=== PATIENT | female | born 1930 | race Caucasian/White ===

== ENCOUNTER 2016-10-06 20:07 | Observation (INO) | payer BC ==
[~2016-10-06] VITALS: Ht 162.6 cm; Wt 63.5 kg
[~2016-10-06 20:07] MED LIST: BISA-3 PO; CRDCD240 PO; SERT50TA PO
--- NOTE | 2016-10-06 20:42 | DIAGNOSTIC IMAGING REPORT ---
CHEST ONE VIEW PORTABLE CLINICAL HISTORY: Chest Pain dyspnea COMPARISON STUDY: 01/23/2016 FINDINGS: Mild stable cardiomegaly. Unchanging right infrahilar nodular density. Slight prominence pulmonary vasculature. Diaphragms smooth. Potential small parenchymal infiltrate left base. IMPRESSION: Small parenchymal infiltrate left base. Unchanging right basilar nodularity. Electronically signed by: Vidal Anand M.D. 10/06/2016 8:40 PM Dictated Date/Time: 10/06/2016 8:40 PM
[2016-10-06 21:12] LABS: BLOOD UREA NITROGEN 11 mg/dl (7-18); BUN/CREATININE RATIO 17.8 (10-20); CARBON DIOXIDE 27 mmol/L (21-32); CHLORIDE 98 mmol/L (98-107); CREATININE 0.63 mg/dl (0.60-1.20); GLUCOSE 91 mg/dl (70-99); SODIUM 133 mmol/L (136-145)
[2016-10-06 21:16] LABS: CKMB/CK RATIO 2.4 (0-3.0)
[2016-10-06 21:27] LABS: MEAN CORPUSCULAR HGB CONC 32.4 g/dl (32-36)
[2016-10-06 21:52] LABS: HEMATOCRIT 28.4 % (37-47); MEAN CELL VOLUME 65.6 fL (80-100); MEAN CORPUSCULAR HEMOGLOBIN 21.2 pg (25-34); PLATELET COUNT 234 K/uL (130-400); RED BLOOD COUNT 4.33 M/uL (4.2-5.4); WHITE BLOOD COUNT 6.35 K/uL (4.8-10.8)
[2016-10-06 21:53] LABS: BASO % 0.9 %; BASO ABS # 0.06 K/uL (0-0.2); COMPLETE YES; EOS % 2.2 %; IG% 0.3 %; LYMPH % 31.2 %; LYMPH ABS # 1.98 K/uL (1.2-3.4); NEUT % 57.4 %; OVALOCYTES 1+; TARGET CELLS 1+
[2016-10-06 21:55] LABS: CALCIUM 9.2 mg/dl (8.5-10.1)
[2016-10-07] MEDS ORDERED: NITROGLYCERIN 0.4 MG SL PER TAB CHARGE SL PRN (00:15)
[2016-10-07] MEDS ORDERED: ACETAMINOPHEN 325 MG TAB PO PRN (00:15)
[2016-10-07] MEDS ORDERED: IV FLUIDS COMPLETED PRN (00:45)
--- NOTE | 2016-10-07 00:50 | EMERGENCY ROOM VISIT NOTE ---
History Report prepared by Moo: Milagro Goff Under the Supervision of: Dr. Yonathan Calvillo D.O. First contact with patient: 20:17 Chief Complaint: CHEST PAIN Stated Complaint: CHEST PAIN History of Present Illness The patient is a 85 year old female who presents to the Emergency Room with complaints of resolved chest pain starting 1.5 hours PIN STICKER that she described as a pressure. She states that the pain lasted about 15 minutes. She states it radiated to her lower chest and back but denies any shortness of breath, jaw pain or arm pain. The patient states she currently has no chest pain. Had similar pain in past but she did not get evaluated. The patient denies any history of heart attacks or diabetes. She states that she has not been able to have bowel movements the last two days but denies any abdominal pain. She also denies any fevers, coughs, nausea, vomiting or diarrhea. Source of History: patient Onset: 1.5 hours PIN STICKER Quality: pressure Timing: resolved Associated Symptoms: No SOB, No cough, No diarrhea, No fevers, No nausea, No vomiting Review of Systems See HPI for pertinent positives & negatives. A total of 10 systems reviewed and were otherwise negative. Past Medical & Surgical Medical Problems: (1) Atrial fibrillation (2) Atrial fibrillation with RVR (3) CAD (coronary artery disease) (4) Chest pain, rule out acute myocardial infarction (5) Hypertension Family History Patient reports no known family medical history. Social History Smoking Status: Former Smoker Alcohol Use: occasionally Drug Use: none Marital Status: Housing Status: lives with family Occupation Status: retired Current/Historical Medications Scheduled Diltiazem HCl (Diltiazem Cd), 240 MG PO QAM Sertraline (Zoloft), 50 MG PO DAILY Allergies Coded Allergies: Aspirin (Unverified Allergy, Unknown, UNK, 10/06/16) Erythromycin (Unverified Allergy, Unknown, UNK, 10/06/16) Loratadine (Unverified Allergy, Unknown, UNK, 10/06/16) Naproxen (Unverified Allergy, Unknown, UNK, 10/06/16) Penicillins (Unverified Allergy, Unknown, UNK, 10/06/16) Sulfa Antibiotics (Unverified Allergy, Unknown, UNK, 10/06/16) Physical Exam Vital Signs Date Time Temp Pulse Resp B/P Pulse Ox O2 Delivery O2 Flow Rate FiO2 10/07/16 00:30 65 10/07/16 00:25 67 18 151/84 96 Room Air 10/06/16 22:29 68 20 148/66 93 Room Air 10/06/16 20:56 61 10/06/16 20:30 95 Room Air 10/06/16 20:30 95 Room Air 10/06/16 20:30 36.7 65 20 161/79 95 Room Air Physical Exam GENERAL: sitting up in bed, no acute distress, non toxic. EYE EXAM: normal conjunctiva OROPHARYNX: no exudate, no erythema, lips, buccal mucosa, and tongue normal and mucous membranes are moist NECK: supple, no nuchal rigidity, no adenopathy, non-tender LUNGS: Clear to auscultation. Normal chest wall mechanics HEART: no murmurs, S1 normal and S2 normal ABDOMEN: abdomen soft, non-tender, normo-active bowel sounds, no masses, no rebound or guarding. UPPER EXTREMITIES: upper extremities are grossly normal. radial pulse equal bilaterally. LOWER EXTREMITIES: No pitting edema. NEURO EXAM: Normal sensorium, cranial nerves II-XII grossly intact, normal speech, no gross weakness of arms, no gross weakness of legs. No drift. Gross sensation intact. Medical Decision & Procedures ER Provider Diagnostic Interpretation: Radiology results as stated below per my review and the radiologist's interpretation: CHEST ONE VIEW PORTABLE CLINICAL HISTORY: Chest Pain dyspnea COMPARISON STUDY: 01/23/2016 FINDINGS: Mild stable cardiomegaly. Unchanging right infrahilar nodular density. Slight prominence pulmonary vasculature. Diaphragms smooth. Potential small parenchymal infiltrate left base. IMPRESSION: Small parenchymal infiltrate left base. Unchanging right basilar nodularity. Electronically signed by: Vidal Anand M.D. 10/06/2016 8:40 PM Dictated Date/Time: 10/06/2016 8:40 PM Laboratory Results 10/06/16 21:15 Red Blood Count 4.33, Mean Corpuscular Volume 65.6, Mean Corpuscular Hemoglobin 21.2, Mean Corpuscular Hemoglobin Concent 32.4, Neutrophils (%) (Auto) 57.4, Lymphocytes (%) (Auto) 31.2, Monocytes (%) (Auto) 8.0, Eosinophils (%) (Auto) 2.2, Basophils (%) (Auto) 0.9, Neutrophils # (Auto) 3.64, Lymphocytes # (Auto) 1.98, Monocytes # (Auto) 0.51, Eosinophils # (Auto) 0.14, Basophils # (Auto) 0.06 10/06/16 20:30 Test 10/06/16 20:30 10/06/16 21:15 Anion Gap 8.0 mmol/L (3-11) Est Creatinine Clear Calc Drug Dose 56.4 ml/min Estimated GFR () 94.8 Estimated GFR (Non- 81.8 BUN/Creatinine Ratio 17.8 (10-20) Calcium Level 9.2 mg/dl (8.5-10.1) Total Creatine Kinase 74 U/L (26-192) Creatine Kinase MB 1.8 ng/ml (0.5-3.6) Creatine Kinase MB Ratio 2.4 (0-3.0) Troponin I < 0.015 ng/ml (0-0.045) White Blood Count 6.35 K/uL (4.8-10.8) Red Blood Count 4.33 M/uL (4.2-5.4) Hemoglobin 9.2 g/dL (12.0-16.0) Hematocrit 28.4 % (37-47) Mean Corpuscular Volume 65.6 fL (80-100) Mean Corpuscular Hemoglobin 21.2 pg (25-34) Mean Corpuscular Hemoglobin Concent 32.4 g/dl (32-36) Platelet Count 234 K/uL (130-400) Neutrophils (%) (Auto) 57.4 % Lymphocytes (%) (Auto) 31.2 % Monocytes (%) (Auto) 8.0 % Eosinophils (%) (Auto) 2.2 % Basophils (%) (Auto) 0.9 % Neutrophils # (Auto) 3.64 K/uL (1.4-6.5) Lymphocytes # (Auto) 1.98 K/uL (1.2-3.4) Monocytes # (Auto) 0.51 K/uL (0.11-0.59) Eosinophils # (Auto) 0.14 K/uL (0-0.5) Basophils # (Auto) 0.06 K/uL (0-0.2) RDW Standard Deviation 38.8 fL (36.4-46.3) RDW Coefficient of Variation 16.6 % (11.5-14.5) Immature Granulocyte % (Auto) 0.3 % Immature Granulocyte # (Auto) 0.02 K/uL (0.00-0.02) Basophilic Stippling 1+ Target Cells 1+ Ovalocytes 1+ Laboratory results per my review. ECG Indication: chest pain Rate (beats per minute): 61 Rhythm: sinus rhythm Findings: LBBB, left axis deviation, other (sliding discord septal lead not greater than 5 mm) Comparison ECG Date: December Change: no significant change ED Course ED COURSE: Vital signs were reviewed and showed normal The patients medical record was reviewed The above diagnostic studies were performed and reviewed. ED treatments and interventions as stated above. 2027: The patient was evaluated in room C6. A complete history and physical examination was performed. 5: I reevaluated the patient and she was resting comfortably. 2230: I discussed the case with Dr. Ellis Resident/ Dr. Bee[place] [facility] [place]. He agreed to evaluate the patient for further management and care. 2245: Upon reevaluation, the patient is resting comfortably.I discussed my findings with the patient and she understands and agrees with the treatment plan. Based on the patients age, coexisting illnesses, exam and lab findings the decision to treat as an inpatient was made.The patient remained stable while under my care.The patient will be evaluated for further management. Medical Decision Differential diagnoses includes but is not limited to acute coronary syndrome, myocardial infarction, pericarditis, pulmonary embolus, aortic dissection, pneumonia, pneumothorax, musculoskeletal, shingles, esophageal. Patient is an 85-year-old female who presents the ER for midsternal chest tightness/pressure which occurred while ambulating in her yard. It lasted for about 15 minutes and resolved with rest. It was not associated with shortness of breath. She has had this once before in the past but never had it evaluated. EMS arrived and patient was given aspirin upon arrival to the ER was completely pain-free. CBC shows a mild anemia at 9.2. This is slightly off of her baseline at 10. BMP along with LFTs and troponin were negative. Chest x-ray was unremarkable. EKG shows a left bundle with slight increased in elevation in the septal leads from previous. This does not meet scrbosas criteria with the left bundle-branch block and she was completely chest pain- free upon arrival. She does have a history of CAD and hypertension. Prolonged discussion with the patient and she was agreeable to observation overnight. Consults Time Called: 2219 Consulting Physician: Dr. Ellis Resident/ Dr. Angelica GARCIA Returned Call: [phone] I discussed the case with Dr. Ellis Resident/ Dr. Concepción GARCIA Hospitalist. He agreed to evaluate the patient for further management and care. Impression Primary Impression: Precordial chest pain Additional Impression: Anemia Scribe Attestation The scribe's documentation has been prepared under my direction and personally reviewed by me in its entirety. I confirm that the note above accurately reflects all work, treatment, procedures, and medical decision making performed by me. Departure Information Dispostion Being Evaluated By Hospitalist Patient Instructions My [facility] Problem Qualifiers Additional Impression: Anemia Anemia type: unspecified type Qualified Codes: D64.9 - Anemia, unspecified
[2016-10-07 02:00] VITALS: BP 107/71; PULSE 69; TEMP 36.6; O2SAT 93; Ht 162.6 cm; Wt 63.5 kg
[2016-10-07 03:20] VITALS: BP 133/89; PULSE 61; TEMP 36.7; O2SAT 93
--- NOTE | 2016-10-07 07:46 | Family Medicine Progress Note ---
Progress Note Date of Service October 07, 2016. Objective Vital Signs Date Time Temp Pulse Resp B/P Pulse Ox O2 Delivery O2 Flow Rate FiO2 10/07/16 04:00 Room Air 10/07/16 03:20 36.7 61 18 133/89 93 Room Air 10/07/16 02:00 36.6 69 18 107/71 93 Room Air 10/07/16 01:35 60 15 121/61 94 10/07/16 00:30 65 10/07/16 00:25 67 18 151/84 96 Room Air 10/06/16 22:29 68 20 148/66 93 Room Air 10/06/16 20:56 61 10/06/16 20:30 95 Room Air 10/06/16 20:30 95 Room Air 10/06/16 20:30 36.7 65 20 161/79 95 Room Air Resident Tracking Resident Involvement: Resident Care Provided Care Provided: Adult Hospital Medicine
[2016-10-07 07:47] VITALS: BP 153/77; PULSE 63; TEMP 36.5; O2SAT 92
--- NOTE | 2016-10-07 08:04 | History and Physical ---
History & Physical Date & Time of Service: October 07, 2016 at 07:47 Chief Complaint: Cad,Chest Pain,R/O Acute Myocardial Infarction Primary Care Physician: No Doctor, Assigned History of Present Illness Source: patient Mrs Quezada is an 85 year old female who presents to the ER after 15-20 minutes of severity 9-10/10 chest pain on exertion. She feels this may have been due to her son smoking in the house. She went out to the yard and while walking around she had the chest pain which slowly went away when she was sitting down. She denies any associated nausea or diaphoresis. It was not positional. She has never had this pain previously. She denies any orthopnea, PND, claudication or leg swelling. She reports having palpitations once when she was squeezed into the back of the car which went away when she got out. She has a history of atrial flutter/fibrillation from previous hospital notes but cannot tell me anything about this. Past Medical/Surgical History Paroxysmal SVT Left bundle branch block B12 deficiency, on monthly injections. Family History Patient reports no known family medical history. Social History Smoking Status: Former Smoker (3 month history) Drug Use: none Marital Status: Housing status: lives with family Occupational Status: retired Allergies Coded Allergies: Aspirin (Unverified Allergy, Unknown, UNK, 10/06/16) Erythromycin (Unverified Allergy, Unknown, UNK, 10/06/16) Loratadine (Unverified Allergy, Unknown, UNK, 10/06/16) Naproxen (Unverified Allergy, Unknown, UNK, 10/06/16) Penicillins (Unverified Allergy, Unknown, UNK, 10/06/16) Sulfa Antibiotics (Unverified Allergy, Unknown, UNK, 10/06/16) Home Medications Scheduled Diltiazem HCl (Diltiazem Cd), 240 MG PO QAM Sertraline (Zoloft), 50 MG PO DAILY Scheduled PRN Nitroglycerin (Nitrostat), 0.4 MG SL UD PRN for Chest Pain Physical Exam Vital Signs Date Time Temp Pulse Resp B/P Pulse Ox O2 Delivery O2 Flow Rate FiO2 10/07/16 04:00 Room Air 10/07/16 03:20 36.7 61 18 133/89 93 Room Air 10/07/16 02:00 36.6 69 18 107/71 93 Room Air 10/07/16 01:35 60 15 121/61 94 10/07/16 00:30 65 10/07/16 00:25 67 18 151/84 96 Room Air 10/06/16 22:29 68 20 148/66 93 Room Air 10/06/16 20:56 61 10/06/16 20:30 95 Room Air 10/06/16 20:30 95 Room Air 10/06/16 20:30 36.7 65 20 161/79 95 Room Air General Appearance: WD/WN, no apparent distress Head: normocephalic, atraumatic Eyes: normal inspection, EOMI Neck: supple, no JVD Respiratory/Chest: chest non-tender, lungs clear, normal breath sounds, no respiratory distress, no accessory muscle use Cardiovascular: regular rate, rhythm, normal peripheral pulses, + systolic murmur (soft loudest in LUSB) Abdomen/GI: normal bowel sounds, non tender, soft Back: no CVA tenderness Extremities/Musculoskelatal: no calf tenderness, normal capillary refill, no pedal edema Neurologic/Psych: mobile lab technician II-XII nml as tested, no motor/sensory deficits, alert, normal mood/affect, oriented x 3 Skin: normal color, warm/dry, no rash Diagnostics Laboratory Results Results Past 24 Hours Test 10/06/16 20:30 10/06/16 21:15 10/07/16 02:41 Range/Units Sodium Level 133 136-145 mmol/L Potassium Level 4.0 3.5-5.1 mmol/L Chloride Level 98 98-107 mmol/L Carbon Dioxide Level 27 21-32 mmol/L Anion Gap 8.0 3-11 mmol/L Blood Urea Nitrogen 11 7-18 mg/dl Creatinine 0.63 0.60-1.20 mg/dl Est Creatinine Clear Calc Drug Dose 56.4 ml/min Estimated GFR () 94.8 Estimated GFR (Non- 81.8 BUN/Creatinine Ratio 17.8 10-20 Random Glucose 91 70-99 mg/dl Calcium Level 9.2 8.5-10.1 mg/dl Total Creatine Kinase 74 26-192 U/L Creatine Kinase MB 1.8 0.5-3.6 ng/ml Creatine Kinase MB Ratio 2.4 0-3.0 Troponin I < 0.015 < 0.015 0-0.045 ng/ml White Blood Count 6.35 4.8-10.8 K/uL Red Blood Count 4.33 4.2-5.4 M/uL Hemoglobin 9.2 12.0-16.0 g/dL Hematocrit 28.4 37-47 % Mean Corpuscular Volume 65.6 80-100 fL Mean Corpuscular Hemoglobin 21.2 25-34 pg Mean Corpuscular Hemoglobin Concent 32.4 32-36 g/dl Platelet Count 234 130-400 K/uL Neutrophils (%) (Auto) 57.4 % Lymphocytes (%) (Auto) 31.2 % Monocytes (%) (Auto) 8.0 % Eosinophils (%) (Auto) 2.2 % Basophils (%) (Auto) 0.9 % Neutrophils # (Auto) 3.64 1.4-6.5 K/uL Lymphocytes # (Auto) 1.98 1.2-3.4 K/uL Monocytes # (Auto) 0.51 0.11-0.59 K/uL Eosinophils # (Auto) 0.14 0-0.5 K/uL Basophils # (Auto) 0.06 0-0.2 K/uL RDW Standard Deviation 38.8 36.4-46.3 fL RDW Coefficient of Variation 16.6 11.5-14.5 % Immature Granulocyte % (Auto) 0.3 % Immature Granulocyte # (Auto) 0.02 0.00-0.02 K/uL Basophilic Stippling 1+ Target Cells 1+ Ovalocytes 1+ Diagnostic Radiology CHEST ONE VIEW PORTABLE CLINICAL HISTORY: Chest Pain dyspnea COMPARISON STUDY: 01/23/2016 FINDINGS: Mild stable cardiomegaly. Unchanging right infrahilar nodular density. Slight prominence pulmonary vasculature. Diaphragms smooth. Potential small parenchymal infiltrate left base. IMPRESSION: Small parenchymal infiltrate left base. Unchanging right basilar nodularity. Electronically signed by: Vidal Anand M.D. 10/06/2016 8:40 PM Dictated Date/Time: 10/06/2016 8:40 PM EKG LBBB which is not new and does not meet sgarbossa's criteria for acute [place] Impression Assessment and Plan 85 year old female with Hx of atrial flutter presents with chest pain Chest pain rule out [place] - had aspirin given by EMS, noted allergy although she is unsure about this and no reaction is noted - serial troponin overnight - stress echo in the morning is troponin is negative - fasting lipids in morning - HbA1C Code - Full VTE Prophylaxis - deferred as patient mobile. If troponin positive will treat with heparin drip Disposition - observation status on telemetry Level of Care Telemetry Advanced Directives Existing Living Will: No (Patient unsure) Existing Power of Rolling Attendant: No (Patient unsure) Resuscitation Status FULL RESUSCITATION VTE Prophylaxis VTE Risk Assessment Done? Y/N: Yes Risk Level: Moderate Given or contraindicated: Treatment not indicated (if troponin positive or exercise stress positive will place on heparin drip, otherwise she is mobile and can be d/c tomorrow) Resident Tracking Resident Involvement: Resident Care Provided Care Provided: Adult Hospital Medicine Assessment and Plan Attending Addendum: I have physically seen and examined this patient, have directed their medical care, have supervised the medical residents activities, and agree with the H&P as noted above, with the following changes: NONE
[2016-10-07 08:33] LABS: ESTIMATED AVERAGE GLUCOSE 100 mg/dl; HA1C FLAG Normal (Normal)
[2016-10-07 08:40] LABS: BLOOD UREA NITROGEN 9 mg/dl (7-18); CARBON DIOXIDE 28 mmol/L (21-32); CHLORIDE 100 mmol/L (98-107); CREATININE 0.62 mg/dl (0.60-1.20); GLUCOSE 93 mg/dl (70-99); POTASSIUM 3.8 mmol/L (3.5-5.1); SODIUM 135 mmol/L (136-145)
[2016-10-07 08:44] LABS: CALCIUM 8.9 mg/dl (8.5-10.1); CHOLESTEROL 219 mg/dl (0-200); CHOLESTEROL/HDL RATIO 3.2; HDL CHOLESTEROL 68 mg/dl; LDL CHOLESTEROL CALCULATED 131 mg/dl; TRIGLYCERIDES 98 mg/dl (0-150); VERY LOW DENSITY LIPOPROT CALC 20 mg/dl
[2016-10-07] MEDS ORDERED: DILTIAZEM HCL 240 MG CAPCR PO SCH (09:00)
[2016-10-07] MEDS ORDERED: SERTRALINE HCL 50 MG TAB PO SCH (09:00)
--- NOTE | 2016-10-07 10:46 | ECHOCARDIOGRAM REPORT ---
*NOTICE TO RECEIVING DEMOCRAT AGENCY This information is strictly Confidential and protected under [place] law. [place] law prohibits you from making any further disclosure of this information unless further disclosure is expressly permitted by the written consent of the person to whom it pertains or is authorized by law. A general authorization for the release of medical or other information is not sufficient for this purpose. Hospital accepts no responsibility if the information is made available to any other person, INCLUDING THE PATIENT. Interpretation Summary * Name: VEENA TRACY Study Date: 10/07/2016 08:45 AM * Patient Location: [facility]\S\N276\S\2 HR: 62 * : 1930 (M/d/yyyy) Gender: Female Height: 62 in * Age: 85 yrs Ethnicity: [place] Weight: 139 lb * Ordering Physician: Sandrita Jaime. * Referring Physician: Self, Referred * Performed By: Britt Nguyen RCS * * Reason For Study: CHEST PAIN * BSA: 1.6 m2 * -- Conclusions -- * There is severe concentric left ventricular hypertrophy. * Left ventricular systolic function is normal. * Grade I diastolic dysfunction, (abnormal relaxation pattern). * There is moderate to severe mitral annular calcification. Procedure Details * Left Ventricle The left ventricle is normal in size. There is severe concentric left ventricular hypertrophy. Left ventricular systolic function is normal. Ejection Fraction = 60-65%. Grade I diastolic dysfunction, (abnormal relaxation pattern). * Right Ventricle The right ventricle is normal in size and function. * Atria The left atrial size is normal. Right atrial size is normal. * Mitral Valve There is moderate to severe mitral annular calcification. There is no mitral regurgitation noted. * Tricuspid Valve The tricuspid valve is not well visualized, but is grossly normal. There is mild tricuspid regurgitation. * Aortic Valve The aortic valve is not well visualized. Aortic valve sclerosis mild, without significant aortic valvular stenosis. There is no significant aortic regurgitation. * Great Vessels The aortic root is normal size. * Pericardium/Pleural There is no pericardial effusion. * Great Vessels Normal inferior vena cava diameter and respiratory variation suggests normal central venous pressure. * * MMode 2D Measurements and Calculations * IVSd 1.9 cm * IVSs 1.9 cm * * LVIDd 2.5 cm * LVIDs 1.8 cm * LVPWd 2.0 cm * LVPWs 1.7 cm * * IVS/LVPW 0.94 * FS 30.0 % * EDV(Teich) 23.2 ml * ESV(Teich) 9.4 ml * EF(Teich) 59.5 % * * EDV(cubed) 16.4 ml * ESV(cubed) 5.6 ml * EF(cubed) 65.7 % * % IVS thick 0.36 % * % LVPW thick -16.81 % * * LV mass(C)d 210.2 grams * LV mass(C)dI 128.3 grams/m\S\2 * LV mass(C)s 123.7 grams * LV mass(C)sI 75.6 grams/m\S\2 * * CO(Teich) 0.90 l/min * CI(Teich) 0.55 l/min/m\S\2 * SV(Teich) 13.8 ml * SI(Teich) 8.4 ml/m\S\2 * CO(cubed) 0.70 l/min * CI(cubed) 0.43 l/min/m\S\2 * SV(cubed) 10.8 ml * SI(cubed) 6.6 ml/m\S\2 * * Ao root diam 2.9 cm * Ao root area 6.8 cm\S\2 * ACS 1.7 cm * LA dimension 3.4 cm * * asc Aorta Diam 3.0 cm * * LA/Ao 1.2 * * LVAd ap4 23.6 cm\S\2 * LVLd ap4 6.8 cm * EDV(MOD-sp4) 68.0 ml * LVAs ap4 13.3 cm\S\2 * LVLs ap4 5.2 cm * ESV(MOD-sp4) 28.0 ml * EF(MOD-sp4) 58.8 % * * LVAd ap2 22.7 cm\S\2 * LVLd ap2 7.1 cm * EDV(MOD-sp2) 61.0 ml * LVAs ap2 13.4 cm\S\2 * LVLs ap2 5.8 cm * ESV(MOD-sp2) 27.0 ml * EF(MOD-sp2) 55.7 % * * CO(MOD-sp4) 2.6 l/min * CI(MOD-sp4) 1.6 l/min/m\S\2 * SV(MOD-sp4) 40.0 ml * SI(MOD-sp4) 24.4 ml/m\S\2 * * CO(MOD-sp2) 2.2 l/min * CI(MOD-sp2) 1.3 l/min/m\S\2 * SV(MOD-sp2) 34.0 ml * SI(MOD-sp2) 20.8 ml/m\S\2 * * * * * * Doppler Measurements and Calculations * MV E max darrin 75.8 cm/sec * MV A max darrin 117.8 cm/sec * * MV E/A 0.64 * * MV P1/2t max darrin 73.0 cm/sec * MV P1/2t 128.0 msec * MVA(P1/2t) 1.7 cm\S\2 * MV dec slope 167.1 cm/sec\S\2 * MV dec time 0.38 sec * * Ao V2 max 140.7 cm/sec * Ao max PG 7.9 mmHg * Ao max PG (full) 2.8 mmHg * * LV V1 max PG 5.2 mmHg * * LV V1 max 113.5 cm/sec * * PA V2 max 95.0 cm/sec * PA max PG 3.6 mmHg * * PI max darrin 126.0 cm/sec * PI max PG 6.4 mmHg * PI dec slope 89.1 cm/sec\S\2 * PI P1/2t 414.4 msec * *
[2016-10-07 11:17] VITALS: BP 145/74; PULSE 58; TEMP 36.6; O2SAT 93
[2016-10-07] MEDS ORDERED: MAGNESIUM HYDROXIDE SUSP 30 ML UDC PO ONE (12:30)
[2016-10-07] MEDS ORDERED: NURSING VERBAL MED ORDER ONE (12:30)
[2016-10-07 14:53] VITALS: BP 119/70; PULSE 64; TEMP 36.7; O2SAT 93
[2016-10-07] MEDS ORDERED: NTRSLP4 SL (16:53)
--- NOTE | 2016-10-07 17:08 | Discharge Instructions ---
Discharge Instructions Date of Service October 07, 2016. Admission Reason for Admission: Cad,Chest Pain,R/O Acute Myocardial Infarction Discharge Discharge Diagnosis / Problem: Chest pain Discharge Goals Goal(s): Decrease discomfort, Diagnostic testing, Therapeutic intervention Activity Recommendations Activity Limitations: resume your previous activity . Instructions / Follow-Up Instructions / Follow-Up You were admitted to the hospital after experiencing chest pain. Blood tests were done to check for a heart protein that leaks when the heart is strained. After 24 hours, all blood tests showed no leakage of proteins, indicating that you did not have a heart attack. You were offered an exercise stress test, a dobutamine stress test, or a nuclear med scan of the heart vessels to further assess the heart, but despite explaining the reason for ordering these tests and potential benefits of identifying underlying risk factors, you declined all further assessment. Your chest xray showed some fuzziness in the left lung base, but since you had no further chest pain symptoms, no difficulty with breathing, your vitals were all stable, and blood tests all in normal limits, further assessment was held. On discharge, you may continue your previous medications. We are also providing a medication to use in case you have future chest pain. Please follow up with your PCP, Dr. Bro next week. He will likely repeat blood tests, and will need to order a chest xray to make sure the fuzziness in your lung has not worsened. Please seek medical care sooner if you have recurrence of chest pain or if you develop fever, difficulty breathing, or dizziness/lightheadedness. Current Hospital Diet Patient's current hospital diet: AHA Diet (Heart Healthy) Discharge Diet Recommended Diet: AHA Diet (Heart Healthy) Pending Studies Studies pending at discharge: no Laboratory Results Hemoglobin A1c Test 10/07/16 08:10 Range/Units Estimated Average Glucose 100 mg/dl Hemoglobin A1c 5.1 4.5-5.6 % Lipid Panel Test 10/07/16 08:10 Range/Units Triglycerides Level 98 0-150 mg/dl Cholesterol Level 219 H 0-200 mg/dl HDL Cholesterol 68 mg/dl Cholesterol/HDL Ratio 3.2 LDL Cholesterol, Calculated 131 mg/dl Medical Emergencies . Who to Call and When: Medical Emergencies: If at any time you feel your situation is an emergency, please call 911 immediately. . Non-Emergent Contact Non-Emergency issues call your: Primary Care Provider . . "Provider Documentation" section prepared by Sandrita Jaime. . VTE Core Measure Inpt VTE Proph given/why not?: Treatment not indicated (if troponin positive or exercise stress positive will place on heparin drip, otherwise she is mobile and can be d/c tomorrow)
--- NOTE | 2016-10-07 17:12 | Discharge Summary ---
Discharge Summary Date of Service October 07, 2016. (Alka. Jaime MD) Discharge Summary Admission Date: October 07, 2016 at 00:17 Discharge Date: October 07, 2016 Discharge Disposition: Home Principal Diagnosis: Chest pain (Alka. 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 Her main goal was discharge. She claims to be asymptomatic. Review of Systems: Constitutional: No chills, No fever Respiratory: No cough, No dyspnea on exertion, No hemoptysis, No shortness of breath, No wheezing Cardiovascular: No chest pain, No claudication Abdomen: No constipation, No diarrhea, No nausea, No pain, No vomiting Genitourinary - Female: No dysuria, No hematuria Physical Exam: General Appearance: WD/WN, no apparent distress Neck: supple, no adenopathy, no JVD Respiratory/Chest: normal breath sounds, no respiratory distress, no accessory muscle use Cardiovascular: regular rate, rhythm, no murmur Abdomen / GI: normal bowel sounds, non tender, soft Extremities: normal inspection, no calf tenderness, no pedal edema Neurologic/Psychiatric: alert, normal mood/affect, + disoriented Skin: normal color, warm/dry, no rash (Alka. Jaime MD) Hospital Course Patient admitted to the hospital after experiencing chest pain. Serial troponin x3 were negative Echo showed * There is severe concentric left ventricular hypertrophy. * Left ventricular systolic function is normal. Ejection Fraction = 60-65%. * Grade I diastolic dysfunction, (abnormal relaxation pattern). * There is moderate to severe mitral annular calcification. * There is mild tricuspid regurgitation. * Aortic valve sclerosis mild, without significant aortic valvular stenosis. Patient offered exercise stress test, dobutamine stress test, or a nuclear med scan of the heart vessels to further assess the heart, but despite explaining the reasons for ordering these tests and potential benefits of identifying underlying risk factors, she declined all further assessment. Patient's chest xray showed small parenchymal infiltrate left base unchanging right basilar nodularity. However, since she was declining all diagnostics and since she had no further chest pain symptoms, no dyspnea, was saturating well on room air, was afebrile with stable vitals and no leukocytosis, further assessment was held. On discharge, patient advised to continue previous medications. She was also prescribed nitroglycerin PRN chest pain recurrence. Patient advised to follow up PCP next week for repeat labs and repeat chest xray to ensure no worsening findings. Total Time Spent: Less than 30 minutes This includes examination of the patient, discharge planning, medication reconciliation, and communication with other providers. (Alka. Jaime MD) Discharge Instructions Please refer to the electronic Patient Visit Report (Discharge Instructions) for additional information. (Alka. Jaime MD) Additional Copies To Dr. Ryan Bro Reviewed: Pt Seen/Exam by Me (Bárbara Lazo MD) History Resident Physician Supervision Note: I interviewed and examined the patient. Discussed with Dr. Jaime and agree with findings and plan as documented in the note. 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 She ruled out for acute coronary syndrome with negative serial cardiac biomarkers. Her ECG was with a chronic left bundle branch block. She had no significant events on telemetry during her admission. She had a resting surface echocardiogram which showed severe LVH and grade 1 diastolic dysfunction, but with preserved EF and no wall motion abnormalities. Her blood pressure was a bit labile but ultimately was within acceptable range. She continued to complain of anxiety and did not want to be in the hospital. She refused any further testing despite encouragement to perform testing for cardiac risk stratification. She wanted to be discharged home and stated that she would follow up with her primary care physician after discharge. She was continued on her same home medications. As for her microcytic anemia, she had normal iron studies, normal TSH, normal B12 and folate and a negative Hemoccult stool in December 2015. Her significant only low MCV point towards a thalassemia as the cause. There is no further workup that needs to be done for this unless her hemoglobin were to worsen. Her pulse ox was mildly low to the hospital stay around 93% and with the finding of the possible parenchymal infiltrate the left base on chest x-ray, this should be followed up as an outpatient. Again, patient declined repeat PA and lateral chest x-ray to further confirm the presence of a true infiltrate prior to discharge. Vitals and telemetry reviewed Anxious, no acute distress, alert awake oriented 3 Regular rate and rhythm, no murmurs rubs or gallops Clear to auscultation bilaterally, breathing unlabored Abdomen soft nontender nondistended positive bowel sounds Extremities no edema Documented By: Bárbara Lazo (Bárbara Lazo MD)
[2016-10-07 18:14] VITALS: BP 119/70; PULSE 64; TEMP 36.7; O2SAT 93
== END 2016-10-07 18:30 | disposition home or self-care (01) ==
LOC: ENRESERVDT → ENRESERVTM → EDBD 20:07 → C.EDC 20:08 → C.MED 10-07 00:17
PROVIDERS: ADMIT Hospitalist; ATTEND Hospitalist
DX: R07.9 Chest pain, unspecified (principal); I25.10 Atherosclerotic heart disease of native coronary artery without angina pectoris; I47.1 Supraventricular tachycardia; I44.7 Left bundle-branch block, unspecified; E53.8 Deficiency of other specified B group vitamins; Z87.891 Personal history of nicotine dependence; Z77.22 Contact with and (suspected) exposure to environmental tobacco smoke (acute) (chronic); Z79.899 Other long term (current) drug therapy

== ENCOUNTER 2018-11-27 20:31 | Inpatient (IN) ==
[2018-11-27] MEDS ORDERED: ONDANSETRON INJ 2 MG/ML 2 ML VIAL IV STA (21:29)
[2018-11-27] MEDS ORDERED: SODIUM CHLORIDE 0.9% 1000ML 500 ML IV ONE (21:29)
[2018-11-27] MEDS ORDERED: SODIUM CHLORIDE 0.9% 1000ML 1,000 ML IV ONE (21:29)
[2018-11-27] MEDS ORDERED: MoRPHine SULFATE 2 MG/ML CARP IV PRN (21:29)
[2018-11-27] MEDS ORDERED: CEFEPIME 2,000 MG/20 ML VIAL IV STA (21:31)
[2018-11-27 21:43] LABS: Basophils # (auto) 0.03 K/uL (0-0.2); Basophils % (auto) 0.2 %; Eosinophils # (auto) 0.01 K/uL (0-0.5); Eosinophils % (auto) 0.1 %; Hematocrit (blood only) 27.9 % (37-47); Hemoglobin 8.9 g/dL (12.0-16.0); Immature Granulocytes # (auto) 0.06 K/uL (0.00-0.02); Immature Granulocytes % (auto) 0.4 %; Lymphocytes # (auto) 0.46 K/uL (1.2-3.4); Lymphocytes % (auto) 2.7 %; Mean Corpuscular Hgb Conc 31.9 g/dL (32-36); Mean Platelet Volume 10.3 fL (7.4-10.4); Monocytes # (auto) 0.53 K/uL (0.11-0.59); Monocytes % (auto) 3.1 %; Neutrophils # (auto) 15.93 K/uL (1.4-6.5); Neutrophils % (auto) 93.5 %; Nucleated RBC # (auto) 0.02 K/uL (0-0); Nucleated RBC % (auto) 0.1 %; Platelet Count 180 K/uL (130-400); RDW Coefficient of Variation 16.5 % (11.5-14.5); RDW Standard Deviation 37.7 fL (36.4-46.3); Red Blood Count 4.43 M/uL (4.2-5.4); White Blood Count 17.02 K/uL (4.8-10.8)
[2018-11-27 21:50] LABS: Alanine Aminotransferase 16 U/L (12-78); Albumin Level 3.7 gm/dl (3.4-5.0); Aspartate Aminotransferase 13 U/L (15-37); BUN Creatinine Ratio 13.8 (10-20); Blood Urea Nitrogen 20 mg/dl (7-18); Calcium 8.8 mg/dl (8.5-10.1); Carbon Dioxide 26 mmol/L (21-32); Chloride 104 mmol/L (98-107); Creatinine Clr Calc Pharmacy 23.4 ml/min; Est GFR (African American) 37.4; Est GFR (Non-African American) 32.3; Glucose 125 mg/dl (70-99); Magnesium 2.3 mg/dl (1.8-2.4); Potassium 4.4 mmol/L (3.5-5.1); Sodium 138 mmol/L (136-145)
[2018-11-27 21:55] LABS: Alkaline Phosphatase 77 U/L (45-117); Bilirubin,Total 1.1 mg/dl (0.2-1); Globulin 3.9 gm/dl (2.5-4.0); Total Protein 7.6 gm/dl (6.4-8.2); Troponin I < 0.015 ng/ml (0-0.045)
--- NOTE | 2018-11-27 22:17 | XRay Report ---
XR chest 1V portable CLINICAL HISTORY: weakness COMPARISON STUDY: Chest radiograph November 16, 2018. FINDINGS: Lung volumes are normal. There is no pneumothorax or pleural effusion. Interlobular septal thickening is noted. Note is made of moderate cardiomegaly. There is no evidence for pneumonia. IMPRESSION: Mild interstitial pulmonary edema. Electronically signed by: Salinas Moya M.D. 11/27/2018 10:16 PM
[2018-11-27 22:20] LABS: Hypochromasia Present; Microcytosis Present; Target Cells 1+
[2018-11-27] MEDS ORDERED: ALBUT/IPRATROP 3MG/0.5MG NEB 3 ML VIAL NEB STA (22:21)
--- NOTE | 2018-11-27 23:50 | History & Physical Report ---
Date of Service November 27, 2018 Assessment & Plan (1) Confusion: 87yo C female with history of dementia, AF presenting with sepsis secondary to UTI, confusion/agitation Neurology: Patient with baseline dementia, poor functional baseline. Neurologic exam at this time is suboptimal as patient is not following commands. She is moving all extremities with 5/5 strength -Haldol PRN agitation, monitor QT interval with EKG -Delirium prevention strategies with frequent orientation -Follow CT results -Continue Sertraline -1:1 observation -Soft restraints as needed Pulmonary: Patient with hypoxia in ER, episodes with saturations in the 60's. She has been removing medical equipment, BiPAP/high flow NC and facemask. CXR suggestive of pulmonary edema, lungs CTA. -Supplemental O2 as needed to maintain saturations > 94% -Follow CT chest results -Obtain ABG -Family stated no intubation/mechanical ventilation at first, however, now agree that intubation would be alright if necessary. Patient full code Cardiovascular: Patient with history of CAD, AF and LBBB. Presently hypotensive, minimal improvement with 1500mL of crystalloid resuscitation. Most likely secondary to volume contraction + sepsis. -Administer additional 500mL bolus of NSS then maintenance rate of 75mL/hr, goal MAP of 65 -Pressor support if patient remains hypotensive despite adequate fluid resuscitation -Hold Diltiazem and Nitro in setting of acute hypotension GI: Patient with history of constipation -Bowel regimen PRN -Follow results of CT Abdomen : Patient with bladder prolapse. Unable to obtain urine sample in ER due to anatomical variance, patient agitation. Family reports patient with frequent urinary retention due to bladder prolapse. She was to have a surgical sling but refused. She does not use a pessary. JUANJO, BUN=20, Cr=1.45 in setting of suspected volume contraction, UTI and sepsis -Attempt to place Shafer catheter -UA and culture -Consider Uro/Room Service Waiter consultation for management of prolapse -IVF as above, repeat BMP in AM to assess renal function -Strict I/Os -Avoid nephrotoxic agents -Renal dosing where appropriate Heme: Patient with neutrophil predominant leukocytosis, WBC=17.02 (increased from 5 yesterday at OSH). stable microcytic hypochromic anemia in setting of Thalassemia -Monitor CBC, no need for transfusion at this time ID: Patient with presumed sepsis from urinary source, +Leukocytosis, +hypotension at present ?multifactorial in setting of volume depletion as well. -IVF as above -Follow culture results, blood and urine -Empiric antibiotic coverage with Vancomycin and Cefepime Endo: KRISTINE -FI=[id number], MICU hyperglycemia protocol Skin: frequent turning per unit protocol F/E/ N - NSS x 500mL then at 75mL/hr, monitor electrolytes and replete as needed, NPO for now, advance diet as tolerated if mental status improves Ppx - low risk for DVT Code - Full Dispo - MICU (2) Sepsis: (3) Dehydration: (4) UTI (urinary tract infection): (5) Bladder prolapse: (6) Hypotension: (7) Hypertension: History of Present Illness Chief Complaint: Unresponsiveness Primary Care Provider: Saad Guzmánjennifer Quezada is an 87yo C female with history of dementia, HTN, paroxysmal SVT, CAD, Thalassemia "Mediterranean blood" presenting with episode of unresponsiveness. Patient was seen at [facility] ER yesterday and found to have a UTI. Labs at that time with WBC=5, UA with +WBCs and LE. Patient was given an antibiotic and sent home. Family reports that she was doing well this AM, however, this evening her son found her slumped over in a chair, unre sponsive therefore she was brought to the ER. On arrival to the ER she was afebrile, hypotensive at 85/35, RR of 25 saturating 90% on room air. She is agitated, combative and uncooperative with exam. She was administered 1500mL of NSS with minimal improvement in blood pressure. Patient became hypoxic to 83% and was placed on a NRB then escalated to BiPAP which she subsequently removed. Family reports that she has some mild dementia at baseline. They report that she often becomes combative and agitated. ER Course: Albuterol, Morphine, Cefepime, Zofran Allergies Allergy/AdvReac Type Severity Reaction Status Date / Time aspirin Allergy Unknown UNK Verified 11/27/18 21:53 erythromycin base Allergy Unknown UNK Verified 11/27/18 21:53 loratadine Allergy Unknown UNK Verified 11/27/18 21:53 naproxen Allergy Unknown UNK Verified 11/27/18 21:53 Penicillins Allergy Unknown UNK Verified 11/27/18 21:53 Sulfa (Sulfonamide Allergy Unknown UNK Verified 11/27/18 21:54 Antibiotics) Home Medications Home Medications Medication Instructions Recorded Confirmed Type diltiazem HCl 240 mg PO DAILY 06/22/18 11/27/18 History nitroglycerin [Nitrostat] 0.4 mg SUBLINGUAL .PRN PRN 06/22/18 11/27/18 History ibuprofen 400 mg PO BID PRN 11/27/18 11/27/18 History sertraline 50 mg PO DAILY 11/27/18 11/27/18 History Past Med/Surg History Medical History Hypertension (Chronic) Atrial fibrillation (Chronic) CAD (coronary artery disease) (Chronic) Bladder prolapse Dementia Wears dentures (Chronic) Surgical History History of cholecystectomy History of hemorrhoidectomy Social History Preferred Language: Nepalese Current Living Situation: Family Feels Safe at Home: Yes Smoking Status: Unknown if ever smoked Hx Alcohol Use: No Hx Substance Use: No Review of Systems Review of Systems: Unobtainable due to cognitive status Physical Exam Physical Exam: General: patient is a frail, elderly female, acutely agitated, removing medical equipment, does not answer questions appropriately, does not follow commands Skin: warm, dry, intact, no rashes or lesions HEENT: NC/AT, PERRL, EOMI, anicteric sclera, conjunctiva without injection, external ear normal to inspection and nontender, nares patent, DRY mucus membranes, dentition intact, no oropharyngeal lesions, neck supple, trachea midline, no LAD, no thyromegaly, no JVD Heart: +S1/S2, regular, no m/r/g Lungs: equal air entry bilaterally, no rales/rhonchi/wheezes Abd: +BS, soft, NT/ND, no masses/organomegaly/ascites Ext: warm, 2+ pulses in UE/LE bilaterally, no clubbing/cyanosis or edema, +Bladder prolapse Neuro: nonfocal, no facial droop, moving all extremities with equal strength 5/5 Results & Data Vital Signs (Past 12 Hours) Vital Signs Temp Pulse Pulse Resp BP BP Pulse Ox 11/27/18 23:45 60 20 88/42 L 94 11/27/18 23:21 74 22 85/38 L 91 11/27/18 22:40 73 72 18 94 11/27/18 22:38 64 18 94 11/27/18 22:30 63 21 83/40 L 94 11/27/18 22:27 22 90 11/27/18 22:26 20 86 L 11/27/18 22:20 70 23 86 L 11/27/18 22:15 70 21 95/45 L 83 L 11/27/18 22:10 70 23 11/27/18 22:01 70 21 90 11/27/18 22:00 72 21 91/43 L 89 L 11/27/18 21:50 76 18 11/27/18 21:46 78 21 72/54 L 93 11/27/18 21:40 75 17 11/27/18 21:37 93 11/27/18 21:31 75 26 H 74/52 L 92 11/27/18 21:30 78 20 93 11/27/18 21:20 83 23 90 11/27/18 21:11 76 22 11/27/18 21:10 77 16 100/46 L 11/27/18 21:00 36.7 C 77 24 85/57 L 90 11/27/18 20:50 80 24 11/27/18 20:43 79 18 85/57 L 90 11/27/18 20:40 78 25 H 90 11/27/18 20:38 81 20 85/35 L 90 Laboratory Results Lab Results 11/27/18 11/27/18 11/27/18 Range/Units 20:43 20:43 22:01 WBC 17.02 H (4.8-10.8) K/uL RBC 4.43 (4.2-5.4) M/uL Hgb 8.9 L (12.0-16.0) g/dL Hct 27.9 L (37-47) % MCV 63.0 L (80-100) fL MCH 20.1 L (25-34) pg MCHC 31.9 L (32-36) g/dL RDW Std Deviation 37.7 (36.4-46.3) fL RDW Coeff of Eren 16.5 H (11.5-14.5) % Plt Count 180 (130-400) K/uL MPV 10.3 (7.4-10.4) fL Immature Gran % (Auto) 0.4 % Neut % (Auto) 93.5 % Lymph % (Auto) 2.7 % Redwood % (Auto) 3.1 % Eos % (Auto) 0.1 % Baso % (Auto) 0.2 % Immature Gran # (Auto) 0.06 H (0.00-0.02) K/uL Neut # (Auto) 15.93 H (1.4-6.5) K/uL Lymph # (Auto) 0.46 L (1.2-3.4) K/uL Redwood # (Auto) 0.53 (0.11-0.59) K/uL Eos # (Auto) 0.01 (0-0.5) K/uL Baso # (Auto) 0.03 (0-0.2) K/uL Absolute Nucleated RBC 0.02 H (0-0) K/uL Nucleated RBC % (auto) 0.1 % Hypochromasia Present Microcytosis Present Target Cells 1+ Sodium 138 (136-145) mmol/L Potassium 4.4 (3.5-5.1) mmol/L Chloride 104 (98-107) mmol/L Carbon Dioxide 26 (21-32) mmol/L Anion Gap 8.0 (3-11) BUN 20 H (7-18) mg/dl Creatinine 1.45 H (0.6-1.2) mg/dl Est Cr Clr Drug Dosing 23.4 ml/min Est GFR ( Amer) 37.4 Est GFR (Non-Af Amer) 32.3 BUN/Creatinine Ratio 13.8 (10-20) Glucose 125 H (70-99) mg/dl Lactate 3.1 H* (0.4-2.0) mmol/L Calcium 8.8 (8.5-10.1) mg/dl Magnesium 2.3 (1.8-2.4) mg/dl Total Bilirubin 1.1 H (0.2-1) mg/dl AST 13 L (15-37) U/L ALT 16 (12-78) U/L Alkaline Phosphatase 77 (45-117) U/L Ammonia (11-32) umol/L Troponin I < 0.015 (0-0.045) ng/ml Total Protein 7.6 (6.4-8.2) gm/dl Albumin 3.7 (3.4-5.0) gm/dl Globulin 3.9 (2.5-4.0) gm/dl Albumin/Globulin Ratio 1.0 (0.9-2) Nasal Screen MRSA (PCR) (Negative) 11/27/18 11/28/18 Range/Units 22:01 01:00 WBC (4.8-10.8) K/uL RBC (4.2-5.4) M/uL Hgb (12.0-16.0) g/dL Hct (37-47) % MCV (80-100) fL MCH (25-34) pg MCHC (32-36) g/dL RDW Std Deviation (36.4-46.3) fL RDW Coeff of Eren (11.5-14.5) % Plt Count (130-400) K/uL MPV (7.4-10.4) fL Immature Gran % (Auto) % Neut % (Auto) % Lymph % (Auto) % Redwood % (Auto) % Eos % (Auto) % Baso % (Auto) % Immature Gran # (Auto) (0.00-0.02) K/uL Neut # (Auto) (1.4-6.5) K/uL Lymph # (Auto) (1.2-3.4) K/uL Redwood # (Auto) (0.11-0.59) K/uL Eos # (Auto) (0-0.5) K/uL Baso # (Auto) (0-0.2) K/uL Absolute Nucleated RBC (0-0) K/uL Nucleated RBC % (auto) % Hypochromasia Microcytosis Target Cells Sodium (136-145) mmol/L Potassium (3.5-5.1) mmol/L Chloride (98-107) mmol/L Carbon Dioxide (21-32) mmol/L Anion Gap (3-11) BUN (7-18) mg/dl Creatinine (0.6-1.2) mg/dl Est Cr Clr Drug Dosing ml/min Est GFR ( Amer) Est GFR (Non-Af Amer) BUN/Creatinine Ratio (10-20) Glucose (70-99) mg/dl Lactate (0.4-2.0) mmol/L Calcium (8.5-10.1) mg/dl Magnesium (1.8-2.4) mg/dl Total Bilirubin (0.2-1) mg/dl AST (15-37) U/L ALT (12-78) U/L Alkaline Phosphatase (45-117) U/L Ammonia < 10.0 L (11-32) umol/L Troponin I (0-0.045) ng/ml Total Protein (6.4-8.2) gm/dl Albumin (3.4-5.0) gm/dl Globulin (2.5-4.0) gm/dl Albumin/Globulin Ratio (0.9-2) Nasal Screen MRSA (PCR) Negative (Negative) Diagnostic Findings XR chest 1V portable CLINICAL HISTORY: weakness COMPARISON STUDY: Chest radiograph November 16, 2018. FINDINGS: Lung volumes are normal. There is no pneumothorax or pleural effusion. Interlobular septal thickening is noted. Note is made of moderate cardiomegaly. There is no evidence for pneumonia. IMPRESSION: Mild interstitial pulmonary edema. Electronically signed by: Salinas Moya M.D. 11/27/2018 10:16 PM Dictated: 11/[id number]/[id number] Transcribed: 11/27/182215 Code Status & VTE Plan Code Status full VTE Prophylaxis Plan VTE Prophylaxis will be ordered: Yes Critical Care Time Critical Care Time: Yes Total Critical Care Time: 45 PG Care Time/CCT Total # of Minutes Spent Total Time Spent with Patient: Total time spent is greater than 50% in coordination of care (as documented) at patient's floor/unit and/or counseling patient: Critical Care Time: Yes Total Critical Care Time: 45 (1) Sepsis Sepsis type: sepsis due to unspecified organism Qualified Code(s): A41.9 - Sepsis, unspecified organism (2) UTI (urinary tract infection) Hematuria presence: without hematuria Urinary tract infection type: site unspecified Qualified Code(s): N39.0 - Urinary tract infection, site not specified (3) Hypotension Hypotension type: unspecified hypotension type Qualified Code(s): I95.9 - Hypotension, unspecified
--- NOTE | 2018-11-27 23:54 | Emergency Department Note ---
Entered by Radha Chávez acting as a scribe for Chiki Solorzano MD History of Present Illness General Chief complaint: Syncope Time Seen by Provider: 11/27/18 21:18 Source: family (son) History of Present Illness Onset (ago): hour(s) (prior to arrival) Location: head (syncope) Pain Consistency: + other (episode) Relieved By: + none Associated symptoms: + confusion, + nausea/vomiting and + weakness (leg) The patient is a 87 year old F who presents to the Emergency Room with complaints of an episode of syncope that occurred prior to arrival. The HPI was provided by the patients son. He states that yesterday the patient was at the ED in [place], [place] for a UTI. He notes that the patient has a history of UTIs. He states that he got home from work to find the patient slumped over in a chair. He adds that he tried to get the patient up but had difficulty due to the patient experiencing leg weakness. He states that the patient is currently experiencing confusion, vomiting and leg weakness. He adds that upon noticing these symptoms, he called 911. He denies that the patient has a history of heart failure and stroke. He notes that the patient has a history of dementia. The HPI is limited due to the patient condition of dementia. Home Medications Home Medications Medication Instructions Recorded Confirmed Type diltiazem HCl 240 mg PO DAILY 06/22/18 11/27/18 History nitroglycerin [Nitrostat] 0.4 mg SUBLINGUAL .PRN PRN 06/22/18 11/27/18 History ibuprofen 400 mg PO BID PRN 11/27/18 11/27/18 History sertraline 50 mg PO DAILY 11/27/18 11/27/18 History Allergies Allergy/AdvReac Type Severity Reaction Status Date / Time aspirin Allergy Unknown UNK Verified 11/27/18 21:53 erythromycin base Allergy Unknown UNK Verified 11/27/18 21:53 loratadine Allergy Unknown UNK Verified 11/27/18 21:53 naproxen Allergy Unknown UNK Verified 11/27/18 21:53 Penicillins Allergy Unknown UNK Verified 11/27/18 21:53 Sulfa (Sulfonamide Allergy Unknown UNK Verified 11/27/18 21:54 Antibiotics) Past Med/Surg History Medical History Hypertension (Chronic) Atrial fibrillation (Chronic) CAD (coronary artery disease) (Chronic) Bladder prolapse Dementia Wears dentures (Chronic) Surgical History History of cholecystectomy History of hemorrhoidectomy Social History Preferred Language: Bhutanese Communication Ability: Unable Current Living Situation: Family Feels Safe at Home: Yes Smoking Status: Unknown if ever smoked Hx Alcohol Use: No Hx Substance Use: No Review of Systems See HPI for pertinent positives & negatives. The ROS is limited due to the patient condition of dementia. Physical Exam Vital Signs Vital Signs - 24 hr 11/27/18 20:38 11/27/18 20:40 11/27/18 20:43 Temperature Temperature Source Sepsis Recent Fever Within 48 Hours Pulse Rate 81 78 79 Pulse Rate [Forehead] Pulse Rate from SpO2 Sensor 79 79 80 Respiratory Rate 20 25 H 18 Respiratory Effort / Characteristics Respiratory Depth Respiratory Pattern Blood Pressure 85/35 L 85/57 L Blood Pressure [Left Arm] Blood Pressure Mean 51 66 Blood Pressure Mean [Left Arm] Blood Pressure Position [Left Arm] Pulse Oximetry 90 90 90 Oxygen Delivery Method Oxygen Flow Rate Fraction of Inspired Oxygen 11/27/18 20:50 11/27/18 21:00 11/27/18 21:10 Temperature 36.7 C Temperature Source Oral Sepsis Recent Fever Within 48 Hours No Pulse Rate 80 77 77 Pulse Rate [Forehead] Pulse Rate from SpO2 Sensor 80 75 77 Respiratory Rate 24 24 16 Respiratory Effort / Characteristics Non-Labored Respiratory Depth Normal Respiratory Pattern Blood Pressure 85/57 L 100/46 L Blood Pressure [Left Arm] Blood Pressure Mean 66 64 Blood Pressure Mean [Left Arm] Blood Pressure Position [Left Arm] Pulse Oximetry 90 Oxygen Delivery Method Room Air Oxygen Flow Rate Fraction of Inspired Oxygen 11/27/18 21:11 11/27/18 21:20 11/27/18 21:30 Temperature Temperature Source Sepsis Recent Fever Within 48 Hours Pulse Rate 76 83 78 Pulse Rate [Forehead] Pulse Rate from SpO2 Sensor 74 82 76 Respiratory Rate 22 23 20 Respiratory Effort / Characteristics Respiratory Depth Respiratory Pattern Blood Pressure Blood Pressure [Left Arm] Blood Pressure Mean Blood Pressure Mean [Left Arm] Blood Pressure Position [Left Arm] Pulse Oximetry 90 93 Oxygen Delivery Method Oxygen Flow Rate Fraction of Inspired Oxygen 11/27/18 21:31 11/27/18 21:37 11/27/18 21:40 Temperature Temperature Source Sepsis Recent Fever Within 48 Hours Pulse Rate 75 75 Pulse Rate [Forehead] Pulse Rate from SpO2 Sensor 73 74 Respiratory Rate 26 H 17 Respiratory Effort / Characteristics Respiratory Depth Respiratory Pattern Blood Pressure 74/52 L Blood Pressure [Left Arm] Blood Pressure Mean 59 Blood Pressure Mean [Left Arm] Blood Pressure Position [Left Arm] Pulse Oximetry 92 93 Oxygen Delivery Method Room Air Oxygen Flow Rate Fraction of Inspired Oxygen 11/27/18 21:46 11/27/18 21:50 11/27/18 22:00 Temperature Temperature Source Sepsis Recent Fever Within 48 Hours Pulse Rate 78 76 72 Pulse Rate [Forehead] Pulse Rate from SpO2 Sensor 77 75 71 Respiratory Rate 21 18 21 Respiratory Effort / Characteristics Respiratory Depth Respiratory Pattern Blood Pressure 72/54 L 91/43 L Blood Pressure [Left Arm] Blood Pressure Mean 60 59 Blood Pressure Mean [Left Arm] Blood Pressure Position [Left Arm] Pulse Oximetry 93 89 L Oxygen Delivery Method Oxygen Flow Rate Fraction of Inspired Oxygen 11/27/18 22:01 11/27/18 22:10 11/27/18 22:15 Temperature Temperature Source Sepsis Recent Fever Within 48 Hours Pulse Rate 70 70 70 Pulse Rate [Forehead] Pulse Rate from SpO2 Sensor 70 70 64 Respiratory Rate 21 23 21 Respiratory Effort / Characteristics Respiratory Depth Respiratory Pattern Blood Pressure 95/45 L Blood Pressure [Left Arm] Blood Pressure Mean 61 Blood Pressure Mean [Left Arm] Blood Pressure Position [Left Arm] Pulse Oximetry 90 83 L Oxygen Delivery Method Room Air Oxygen Flow Rate Fraction of Inspired Oxygen 11/27/18 22:20 11/27/18 22:26 11/27/18 22:27 Temperature Temperature Source Sepsis Recent Fever Within 48 Hours Pulse Rate 70 Pulse Rate [Forehead] Pulse Rate from SpO2 Sensor Respiratory Rate 23 20 22 Respiratory Effort / Characteristics Non-Labored Respiratory Depth Normal Respiratory Pattern Blood Pressure Blood Pressure [Left Arm] Blood Pressure Mean Blood Pressure Mean [Left Arm] Blood Pressure Position [Left Arm] Pulse Oximetry 86 L 86 L 90 Oxygen Delivery Method Room Air Room Air Non-rebreather Oxygen Flow Rate 10 Fraction of Inspired Oxygen 11/27/18 22:30 11/27/18 22:38 11/27/18 22:40 Temperature Temperature Source Sepsis Recent Fever Within 48 Hours Pulse Rate 63 64 73 Pulse Rate [Forehead] 72 Pulse Rate from SpO2 Sensor 63 Respiratory Rate 21 18 18 Respiratory Effort / Characteristics Non-Labored Spontaneous Non-Labored Spontaneous Respiratory Depth Normal Respiratory Pattern Regular Blood Pressure 83/40 L Blood Pressure [Left Arm] Blood Pressure Mean 54 Blood Pressure Mean [Left Arm] Blood Pressure Position [Left Arm] Pulse Oximetry 94 94 94 Oxygen Delivery Method Non-rebreather BiPAP Oxygen Flow Rate 10 Fraction of Inspired Oxygen 60 60 11/27/18 23:21 11/27/18 23:45 Temperature Temperature Source Sepsis Recent Fever Within 48 Hours Pulse Rate Pulse Rate [Forehead] 74 60 Pulse Rate from SpO2 Sensor Respiratory Rate 22 20 Respiratory Effort / Characteristics Non-Labored Spontaneous Non-Labored Spontaneous Respiratory Depth Normal Normal Respiratory Pattern Regular Regular Blood Pressure Blood Pressure [Left Arm] 85/38 L 88/42 L Blood Pressure Mean Blood Pressure Mean [Left Arm] 53 57 Blood Pressure Position [Left Arm] Lying Lying Pulse Oximetry 91 94 Oxygen Delivery Method Non-rebreather Oxygen Flow Rate 15 Fraction of Inspired Oxygen GENERAL: Patient is confused, somewhat agitated, and in mild distress. HEENT: No acute trauma, normocephalic atraumatic, mucous membranes dry, no nasal congestion, no scleral icterus. NECK: No stridor, no adenopathy, no meningismus, trachea is midline. LUNGS: Clear to auscultation bilaterally, no wheeze, no rhonchi, breath sounds equal. HEART: 3/6 systolic murmur, regular rate and regular rhythm. ABDOMEN: Soft, nontender, bowel sounds positive, no hernias, no peritonitis. EXTREMITIES: No cyanosis or edema, full range of motion of all the joints without pain or difficulty, no signs for acute trauma. NEUROLOGIC: Agitated, moves all extremities, confused, no obvious focal deficits. SKIN: No rash, no jaundice, no diaphoresis. Course 2119: The patient was evaluated in room B2. A complete history and physical exam was performed. 2224: I re-checked the patient because she is hypoxic. 2231: I reviewed the patient's case with Dr. Diandra Evans, [facility] Hospitalist. She will evaluate the patient for further management. 0025: A review of the patient records showed a urine analysis result that was consistent with a possible infection with leukocytes present. No culture result is yet available. The patient's white blood cell count was 5. Consultations Consultation #1: I reviewed the patient's case with Dr. Diandra Evans, [facility] Hospitalist. She will evaluate the patient for further management. Time: 22:31 Administered Medications Albuterol (Duoneb) 3 ml NEB Q4R NEFTALY Stop: 12/28/18 03:59 Last Admin: 11/28/18 15:35 Dose: 3 ml Documented by: [id number] Admin: 11/28/18 11:25 Dose: 3 ml Documented by: [id number] Admin: 11/28/18 07:06 Dose: 3 ml Documented by: [id number] Admin: 11/28/18 05:32 Dose: Not Given Documented by: [id number] Heparin Sodium (Porcine) (Heparin Sodium (Porcine)) 5,000 units SQ Q8 NEFTALY Stop: 12/28/18 13:59 Last Admin: 11/28/18 13:52 Dose: 5,000 units Documented by: [id number] Cosigned by: [id number] Sodium Chloride (Nss 1000ml) 1,000 mls @ 75 mls/hr IV .[id number] NEFTALY Stop: 12/28/18 01:44 Last Admin: 11/28/18 13:52 Dose: 75 mls/hr Documented by: [id number] Infusion: 11/28/18 13:52 Dose: 75 mls/hr Documented by: [id number] Admin: 11/28/18 02:09 Dose: 75 mls/hr Documented by: [id number] Sertraline HCl (Zoloft) 50 mg PO DAILY NEFTALY Stop: 12/28/18 08:59 Last Admin: 11/28/18 09:24 Dose: Not Given Documented by: [id number] Discontinued Medications Albuterol (Duoneb) 3 ml NEB NOW STA Stop: 11/27/18 22:22 Last Admin: 11/27/18 22:37 Dose: 3 ml Documented by: [id number] Cefepime HCl (Maxipime) 2,000 mg in 20 mls @ 5 mls/min IV NOW STA; Protocol Stop: 11/27/18 21:34 Last Admin: 11/27/18 22:54 Dose: 5 mls/min Documented by: [id number] Sodium Chloride (Nss 1000ml) 1,000 mls @ 999 mls/hr IV .Q1H1M ONE Stop: 11/27/18 22:29 Last Infusion: 11/27/18 22:48 Dose: 0 mls/hr Documented by: [id number] Admin: 11/27/18 21:48 Dose: 999 mls/hr Documented by: [id number] Sodium Chloride (Nss 1000ml) 500 mls @ 999 mls/hr IV .Q31M ONE Stop: 11/27/18 21:59 Last Infusion: 11/27/18 23:15 Dose: 0 mls/hr Documented by: [id number] Admin: 11/27/18 21:48 Dose: 999 mls/hr Documented by: [id number] Lorazepam (Ativan) 0.5 mg in 1 mls @ 1 mls/min IV NOW STA Stop: 11/28/18 01:00 Last Admin: 11/28/18 01:05 Dose: 1 mls/min Documented by: [id number] Sodium Chloride (Nss) 500 mls @ 999 mls/hr IV .Q31M ONE Stop: 11/28/18 01:45 Last Infusion: 11/28/18 02:38 Dose: 0 mls/hr Documented by: [id number] Admin: 11/28/18 02:07 Dose: 999 mls/hr Documented by: [id number] Vancomycin HCl 1,250 mg/ (Sodium Chloride) 275 mls @ 125 mls/hr IV ONE ONE; Protocol Stop: 11/28/18 03:41 Last Infusion: 11/28/18 04:22 Dose: 0 mls/hr Documented by: [id number] Admin: 11/28/18 02:10 Dose: 125 mls/hr Documented by: [id number] Metronidazole (Flagyl) 500 mg in 100 mls @ 100 mls/hr IV Q8H [facility] Stop: 12/05/18 03:59 Last Infusion: 11/28/18 05:22 Dose: 0 mls/hr Documented by: [id number] Admin: 11/28/18 04:22 Dose: 100 mls/hr Documented by: [id number] Methylprednisolone 40 mg/ (Syringe) 0.64 mls @ 1.5 mls/min IV Q12H NEFTALY Stop: 12/28/18 03:59 Last Admin: 11/28/18 04:22 Dose: 1.5 mls/min Documented by: [id number] Dopamine HCl/Dextrose (Dopamine / D5w) 400 mg in 250 mls @ 10.856 mls/hr IV .Q23H2M [facility]; Protocol Stop: 12/28/18 06:59 Last Admin: 11/28/18 09:25 Dose: Not Given Documented by: [id number] Morphine Sulfate (Morphine Sulfate) 2 mg IV Q15M PRN PRN Reason: Pain Stop: 12/11/18 21:28 Last Admin: 11/27/18 21:49 Dose: 2 mg Documented by: [id number] Ondansetron HCl (Zofran) 4 mg IV NOW STA Stop: 11/27/18 21:30 Last Admin: 11/27/18 21:48 Dose: 4 mg Documented by: [id number] Medical Decision Making Differential Diagnosis Differential diagnosis includes: stroke, sepsis, bacteremia, dehydration, PNA, UTI, electrolyte imbalance, renal or liver failure, [place] Medical Records Attestation: I reviewed the patient's medical records. Home Medications Current Medication List: was personally reviewed by me Laboratory Data Attestation: I reviewed the patient's lab results. Result diagrams: 11/28/18 10:41 11/28/18 04:48 Lab Results 11/27/18 11/27/18 11/27/18 Range/Units 20:43 20:43 22:01 WBC 17.02 H (4.8-10.8) K/uL RBC 4.43 (4.2-5.4) M/uL Hgb 8.9 L (12.0-16.0) g/dL Hct 27.9 L (37-47) % MCV 63.0 L (80-100) fL MCH 20.1 L (25-34) pg MCHC 31.9 L (32-36) g/dL RDW Std Deviation 37.7 (36.4-46.3) fL RDW Coeff of Eren 16.5 H (11.5-14.5) % Plt Count 180 (130-400) K/uL MPV 10.3 (7.4-10.4) fL Immature Gran % (Auto) 0.4 % Neut % (Auto) 93.5 % Lymph % (Auto) 2.7 % [place] % (Auto) 3.1 % Eos % (Auto) 0.1 % Baso % (Auto) 0.2 % Immature Gran # (Auto) 0.06 H (0.00-0.02) K/uL Neut # (Auto) 15.93 H (1.4-6.5) K/uL Lymph # (Auto) 0.46 L (1.2-3.4) K/uL [place] # (Auto) 0.53 (0.11-0.59) K/uL Eos # (Auto) 0.01 (0-0.5) K/uL Baso # (Auto) 0.03 (0-0.2) K/uL Absolute Nucleated RBC 0.02 H (0-0) K/uL Nucleated RBC % (auto) 0.1 % Hypochromasia Present Microcytosis Present Target Cells 1+ Sodium 138 (136-145) mmol/L Potassium 4.4 (3.5-5.1) mmol/L Chloride 104 (98-107) mmol/L Carbon Dioxide 26 (21-32) mmol/L Anion Gap 8.0 (3-11) BUN 20 H (7-18) mg/dl Creatinine 1.45 H (0.6-1.2) mg/dl Est Cr Clr Drug Dosing 23.4 ml/min Est GFR ( Amer) 37.4 Est GFR (Non-Af Amer) 32.3 BUN/Creatinine Ratio 13.8 (10-20) Glucose 125 H (70-99) mg/dl Lactate 3.1 H* (0.4-2.0) mmol/L Calcium 8.8 (8.5-10.1) mg/dl Magnesium 2.3 (1.8-2.4) mg/dl Total Bilirubin 1.1 H (0.2-1) mg/dl AST 13 L (15-37) U/L ALT 16 (12-78) U/L Alkaline Phosphatase 77 (45-117) U/L Ammonia (11-32) umol/L Troponin I < 0.015 (0-0.045) ng/ml Total Protein 7.6 (6.4-8.2) gm/dl Albumin 3.7 (3.4-5.0) gm/dl Globulin 3.9 (2.5-4.0) gm/dl Albumin/Globulin Ratio 1.0 (0.9-2) 11/27/18 Range/Units 22:01 WBC (4.8-10.8) K/uL RBC (4.2-5.4) M/uL Hgb (12.0-16.0) g/dL Hct (37-47) % MCV (80-100) fL MCH (25-34) pg MCHC (32-36) g/dL RDW Std Deviation (36.4-46.3) fL RDW Coeff of Eren (11.5-14.5) % Plt Count (130-400) K/uL MPV (7.4-10.4) fL Immature Gran % (Auto) % Neut % (Auto) % Lymph % (Auto) % [place] % (Auto) % Eos % (Auto) % Baso % (Auto) % Immature Gran # (Auto) (0.00-0.02) K/uL Neut # (Auto) (1.4-6.5) K/uL Lymph # (Auto) (1.2-3.4) K/uL [place] # (Auto) (0.11-0.59) K/uL Eos # (Auto) (0-0.5) K/uL Baso # (Auto) (0-0.2) K/uL Absolute Nucleated RBC (0-0) K/uL Nucleated RBC % (auto) % Hypochromasia Microcytosis Target Cells Sodium (136-145) mmol/L Potassium (3.5-5.1) mmol/L Chloride (98-107) mmol/L Carbon Dioxide (21-32) mmol/L Anion Gap (3-11) BUN (7-18) mg/dl Creatinine (0.6-1.2) mg/dl Est Cr Clr Drug Dosing ml/min Est GFR ( Amer) Est GFR (Non-Af Amer) BUN/Creatinine Ratio (10-20) Glucose (70-99) mg/dl Lactate (0.4-2.0) mmol/L Calcium (8.5-10.1) mg/dl Magnesium (1.8-2.4) mg/dl Total Bilirubin (0.2-1) mg/dl AST (15-37) U/L ALT (12-78) U/L Alkaline Phosphatase (45-117) U/L Ammonia < 10.0 L (11-32) umol/L Troponin I (0-0.045) ng/ml Total Protein (6.4-8.2) gm/dl Albumin (3.4-5.0) gm/dl Globulin (2.5-4.0) gm/dl Albumin/Globulin Ratio (0.9-2) Imaging Data Radiologist's Impression: Radiology results as stated below per my review and the radiologist's interpretation: XR chest 1V portable CLINICAL HISTORY: weakness COMPARISON STUDY: Chest radiograph November 16, 2018. FINDINGS: Lung volumes are normal. There is no pneumothorax or pleural effusion. Interlobular septal thickening is noted. Note is made of moderate cardiomegaly. There is no evidence for pneumonia. IMPRESSION: Mild interstitial pulmonary edema. Electronically signed by: Salinas Moya M.D. 11/27/2018 10:16 PM ECG Data Attestation: I personally reviewed and interpreted this ECG as follows: Indication: syncope Rate (beats per minute): 80 Rhythm: other (wide complex tachycardia) Findings: + LBBB; no ST elevation Comparison ECG Date: from (11/16/18) Change: the following changes noted (LBBB is not new.) Blood Pressure Blood Pressure Findings: Low blood pressure Blood Pressure Disposition: further management by hospitalist MDM Narrative There is a moderate leukocytosis at 17,000, this is consistent with infection. The patient is anemic with a hemoglobin of 8.9, this is chronic though for the patient. Platelet count was normal. There was some dehydration/renal insufficiency with a creatinine of 1.45. Lactic acid level was elevated at 3.1, this is consistent with infection and dehydration. No concerning liver enzyme elevations. The ammonia level was not elevated. EKG showed a wide-complex rhythm which I suspect may be atrial fibrillation as she carries a history of this. I could not find P waves. There was no acute ischemia. Cardiac enzyme testing x1 is not consistent with acute cardiac injury. Chest x-ray does show some congestion which appears chronic, no pneumonia. Urinalysis result is pending as the patient could not provide a sample and a catheter was not possible as she has a very large uterine prolapse. The patient presents with increased confusion, syncope, hypotension. She seemed dehydrated clinically. I suspect she is septic from a urinary source given the diagnosed UTI yesterday. Patient received IV saline 1.5 L. She was given IV Zofran, IV morphine, IV cefepime. Her O2 saturation dropped some here and she was eventually placed on BiPAP. She was given a DuoNeb. I had a long discussion with the family. The patient is not to be intubated. They would consider CPR if only performed for a short time. The family does not feel that she would want overly aggressive measures given her age and physical condition/dementia. The family is aware that the patient is quite ill. I did speak with the on-call hospitalist. Given the hypotension and the patient's respiratory condition, she may require the intensive care unit. I spoke with the nurse case management. Admission/observation is clearly warranted. We did request records from the outside hospital where the patient was treated yesterday, these results arrived and did suggest a UTI by urinalysis. The urine culture was not yet available. White blood cell count yesterday was recorded at around 5. Impression & Plan Sepsis, Confusion, Dehydration, Hypotension, UTI (urinary tract infection) Critical Care Time Critical Care Time: Yes Total Critical Care Time: 42 I have personally spent 42 minutes of critical care time in the direct management of this patient. This includes bedside care, interpretation of diagnostic studies, and testing, discussion with consultants, patient, and family members, and other required patient management activities. This 42 minutes is in excess of all separately billable procedures. Discharge Plan Visit Data *Final* Discharge Date/Time: 11/28/18 00:38 Chief Complaint: Syncope ED Provider: Chiki Solorzano Discharge Problem: Sepsis, Confusion, Dehydration, Hypotension, UTI (urinary tract infection) Patient Disposition: Admitted As Inpatient Discharge Instructions Interventions: ED Discharge Assessment Last Done: 11/28/18 00:38 Discharge Problem: Sepsis Qualifiers: Sepsis type: sepsis due to unspecified organism Qualified Code(s): A41.9 - Sepsis, unspecified organism Hypotension Qualifiers: Hypotension type: unspecified hypotension type Qualified Code(s): I95.9 - Hypotension, unspecified UTI (urinary tract infection) Qualifiers: Urinary tract infection type: site unspecified Hematuria presence: without hematuria Qualified Code(s): N39.0 - Urinary tract infection, site not specified The scribe's documentation has been prepared under my direction and personally reviewed by me in its entirety. I confirm that the note above accurately reflects all work, treatment, procedures, and medical decision making performed by me.
--- NOTE | 2018-11-28 00:50 | Critical Care Consultation ---
Date of Consultation November 28, 2018 Assessment & Plan (1) Admitted to intensive care unit: Reason Critically Ill: 87-year-old female presenting with sepsis from possible urinary source with increasing agitation from baseline dementia as well as acute hypoxic respiratory failure. NEURO - * CAM ICU: Unable to assess secondary to patient's baseline dementia. * Acute agitation. Likely multifactorial in the setting of sepsis syndrome and likely metabolic encephalopathy as well. * Combative. * Patient with wide QRS/QTc. Will avoid antipsychotics. Treat with 0.5 mg Ativan IV as needed for sedation. * Will obtain CT of the brain. CARDIAC/VASCULAR - * Hypotension in the setting of sepsis. * Continue with IV fluid resuscitation as patient appears clinically dry. * Progressed to pressors if needed. * A. fib: Currently on anticoagulation. Would likely agree with avoiding anticoagulants in the event of demented patient with high risk of mortality from bleeding. * EKG: Wide QRS complex w/ T wave inversions in leads V5/6. LBBB - unchanged. QTc 484ms. * Monitor on telemetry. RESPIRATORY - * Acute Hypoxic Respiratory Failure: * Of initial uncertain etiology as CXR w/ onlly slight pulmonary edema noted. * Will add CT chest for further evaluation. * Patient did vomit en route to the ICU. Will add Flagyl to current Cefepime/Vanc combo for anaerobic coverage. * Will add IV Steroids q12 hrs. * Addition of Nebs. * Initial AB.26/36.7/89/17.1 - points to metabolic acidosis. * Will continue to monitor respiratory status closely w/ possible need for intubation. * Initially, it was reported that the patient was a DNI per family. ED Nurse did inform myself and Hospitalist team that the patient's son was actually fine w/ temporary intubation. I did call her son, Fan May ([phone]) to clarify this. He is agreeable to intubation if necessary. He recognizes the risk of this procedure and would be agreeable in the event of necessity. GI/NUTRITION - * NPO at this time. Progress diet as clinical picture improves. RENAL/LYTES - * JUANJO: * Likely prerenal in the setting of hypotension and hypovolemia. * Agree with aggressive IVF resuscitation. * Trend Lytes. Replace as needed. * IVF: NSS@70mL/hr - * Suspected UTI: * From recent outside ED visit w/ c/o UTI. * Agree w/ selected antibiotics. * Bladder prolapse - chronic: * Unable to be successfully catheterized in the ED. * Will perform serial bladder scans if no urine output. * Urology consultation pending necessity ENDO - * No h/o DM or Thyroid Dz. * BSGs per unit protocol. ISS --> gtt per unit policy. HEME - * Stable H&H * Leukocytosis in the setting of sepsis from likely urinary source. ID - * Sepsis from likely urinary source. * Initially treated w/ Vanc/Cefepime. * Will add Flagyl for anaerobic coverage as patient did vomit in transfer to the ICU and w/ risk of possible aspiration event. * Initial Lactate 3.1. Will trend. * Will add AM ProCal. * Will CT abd/pelvis to rule out possibility of retained stone prompting septicemia. * Blood Cultures pending. * Would advocate for catheter urine specimen, however I am uncertain if this will be a possibility 2/2 patient's unique anatomy. LINES/IV ACCESS - * PIVs x2 DVT PROPHYLAXIS - * Will hold at this time in the patient's current state of combativeness and confusion and risk for bleeding. * SCDs - will hold as patient is w/ increased agitation w/ any tactile stimulation. I have personally spent 45 minutes of critical care time in the direct management of this patient. This is a life/limb threatening event. This includes time spent evaluating patient, direct bedside care, chart review, placing orders, interpretation of diagnostic studies, discussion with consultants, patient, and family members, as well as other required patient management activities. This time is exclusive of all separately billable procedures, and teaching time and separate from and in addition to any other critical care service time. Thank you for allowing us to participate in the care of this patient. Please refer to my attending physician's documentation for any further recommendations. (2) Acute respiratory failure with hypoxia: (3) Sepsis: (4) Dehydration: (5) Hypotension: (6) UTI (urinary tract infection): (7) Bladder prolapse: (8) Confusion: (9) Confusion: (10) ARF (acute renal failure): (11) Atrial fibrillation: (12) Hypertension: (13) CAD (coronary artery disease): (14) Urinary retention: History of Present Illness History of Present Illness History of present illness limited secondary to patient's baseline dementia with acute agitation in the setting of sepsis. Patient presented to the emergency department this evening after her son, with whom she lives, arrived home from work find her slumped over. EMS was contacted and patient was brought to this facility. She had been seen at the [facility] emergency department recently and diagnosed with a urinary tract infection. She does have a history of urinary retention as well as frequent UTIs in the setting of prolapsed bladder. Apparently, she has declined surgical correction for this in the past. She was noted to be hypotensive in the emergency department and resuscitated with IV fluids. She was noted to be hypoxic in the emergency department with saturations in the 60s. She was placed on BiPAP with moderate resolve symptoms. Patient became increasingly agitated throughout her stay in the emergency department. Per family, apparently, the patient is not far from her baseline despite her presenting agitation and combativeness. She received IV cefepime and vancomycin. On evaluation in the emergency department, the patient is agitated and combative. Orders placed for soft limb restraints. Patient was placed on a nonrebreather. She was transported to the ICU for further evaluation and management. Allergies Allergy/AdvReac Type Severity Reaction Status Date / Time aspirin Allergy Unknown UNK Verified 11/27/18 21:53 erythromycin base Allergy Unknown UNK Verified 11/27/18 21:53 loratadine Allergy Unknown UNK Verified 11/27/18 21:53 naproxen Allergy Unknown UNK Verified 11/27/18 21:53 Penicillins Allergy Unknown UNK Verified 11/27/18 21:53 Sulfa (Sulfonamide Allergy Unknown UNK Verified 11/27/18 21:54 Antibiotics) Home Medications Home Medications Medication Instructions Recorded Confirmed Type diltiazem HCl 240 mg PO DAILY 06/22/18 11/27/18 History nitroglycerin [Nitrostat] 0.4 mg SUBLINGUAL .PRN PRN 06/22/18 11/27/18 History ibuprofen 400 mg PO BID PRN 11/27/18 11/27/18 History sertraline 50 mg PO DAILY 11/27/18 11/27/18 History Patient History Medical History Hypertension (Chronic) Atrial fibrillation (Chronic) CAD (coronary artery disease) (Chronic) Bladder prolapse Dementia Wears dentures (Chronic) Surgical History History of cholecystectomy History of hemorrhoidectomy Social History Preferred Language: Welsh Current Living Situation: Family Feels Safe at Home: Yes Smoking Status: Unknown if ever smoked Hx Alcohol Use: No Hx Substance Use: No Review of Systems Review of Systems: Unobtainable due to cognitive status Physical Exam Physical Exam: VITAL SIGNS - Vital signs and nursing notes were reviewed. GENERAL - 87-year-old female appearing her stated age who is demented and acutely agitated and combative towards staff. SKIN - Without rashes. HEAD - NC/AT. EYES - PERRL with EOMI bilaterally. Sclera anicteric. EARS - No deformities of external structures noted on gross examination bilaterally. NOSE - Midline and without cyanosis. No epistaxis or purulent drainage noted. MOUTH/OROPHARYNX - Without perioral cyanosis. Buccal mucosa pink and dry. NECK - Neck with FROM. Supple to palpation. No nuchal rigidity. LUNGS - Chest wall symmetric without accessory muscle use, intercostals retractions, or central cyanosis. Normal vesicular breath sounds CTA B/L. No wheezes, rales, or rhonchi appreciated. CARDIAC - RRR with S1/S2. No murmur, rubs, or gallops appreciated. ABDOMEN - Abdominal contour flat without pulsations or visible masses. BS normoactive all four quadrants. Moderate diffuse TTP. No palpable masses, hepatosplenomegaly, or ascites noted. EXTREMITIES - No clubbing or peripheral cyanosis. No pretibial edema present. +3/5 radial and dorsalis pedis pulses palpated throughout. +5/5 strength noted in UE/LE bilaterally. NEUROLOGIC - Cranial nerves II through XII grossly intact. PSYCH - h/o baseline dementia w/ agitation. Increased agitation and combativeness towards staff. Results & Data Vital Signs (Past 12 Hours) Vital Signs Temp Pulse Pulse Resp BP BP Pulse Ox 11/28/18 00:28 59 L 22 91/48 L 97 11/27/18 23:45 60 20 88/42 L 94 11/27/18 23:21 74 22 85/38 L 91 11/27/18 22:40 73 72 18 94 11/27/18 22:38 64 18 94 11/27/18 22:30 63 21 83/40 L 94 11/27/18 22:27 22 90 11/27/18 22:26 20 86 L 11/27/18 22:20 70 23 86 L 11/27/18 22:15 70 21 95/45 L 83 L 11/27/18 22:10 70 23 11/27/18 22:01 70 21 90 11/27/18 22:00 72 21 91/43 L 89 L 11/27/18 21:50 76 18 11/27/18 21:46 78 21 72/54 L 93 11/27/18 21:40 75 17 11/27/18 21:37 93 11/27/18 21:31 75 26 H 74/52 L 92 11/27/18 21:30 78 20 93 11/27/18 21:20 83 23 90 11/27/18 21:11 76 22 11/27/18 21:10 77 16 100/46 L 11/27/18 21:00 36.7 C 77 24 85/57 L 90 11/27/18 20:50 80 24 11/27/18 20:43 79 18 85/57 L 90 11/27/18 20:40 78 25 H 90 11/27/18 20:38 81 20 85/35 L 90 PG Care Time/CCT Critical Care Time: Yes Total Critical Care Time: 45 (1) UTI (urinary tract infection) Hematuria presence: without hematuria Urinary tract infection type: site unspecified Qualified Code(s): N39.0 - Urinary tract infection, site not specified (2) Sepsis Sepsis type: sepsis due to unspecified organism Qualified Code(s): A41.9 - Sepsis, unspecified organism (3) Hypotension Hypotension type: unspecified hypotension type Qualified Code(s): I95.9 - Hypotension, unspecified
[2018-11-28] MEDS ORDERED: LORazepam 0.5 MG/1 ML VIAL IV STA (00:59)
[2018-11-28] MEDS ORDERED: VANCOMYCIN CONSULT ACTIVE PRN (01:02)
[2018-11-28] MEDS ORDERED: ICU PROTOCOL FOR HYPERGLYCEMIA PRN (01:02)
[2018-11-28] MEDS ORDERED: POLYETHYLENE (MIRALAX) 17 GM PACK PO PRN (01:02)
[2018-11-28] MEDS ORDERED: DOCUSATE SODIUM 100 MG CAP PO PRN (01:02)
[2018-11-28] MEDS ORDERED: HALOPERIDOL LACTATE 5 MG/ML 1 ML VIAL IV PRN (01:02)
[2018-11-28] MEDS ORDERED: SODIUM CHLORIDE 0.9% 500 ML IV ONE (01:15)
[2018-11-28] MEDS ORDERED: VANCOMYCIN HCL 1,250 MG in SODIUM CHLORIDE 0.9% 250 ML IV ONE (01:30)
[2018-11-28] MEDS: SODIUM CHLORIDE 0.9% 1000ML 1,000 ML IV SCH ×2 (02:09→13:52)
[2018-11-28] MEDS ORDERED: methylPREDNISolone 40 MG in SYRINGE 0 ML IV SCH (04:00)
[2018-11-28] MEDS ORDERED: metroNIDAZOLE 500 MG/100 ML BAG IV SCH (04:00)
[2018-11-28 04:56] LABS: Hematocrit (blood only) 24.5 % (37-47); Hemoglobin 7.7 g/dL (12.0-16.0); Mean Corpuscular Hgb Conc 31.4 g/dL (32-36); Mean Corpuscular Volume 63.5 fL (80-100); Mean Platelet Volume 9.8 fL (7.4-10.4); Platelet Count 166 K/uL (130-400); RDW Coefficient of Variation 16.5 % (11.5-14.5); RDW Standard Deviation 38.2 fL (36.4-46.3); Red Blood Count 3.86 M/uL (4.2-5.4); White Blood Count 16.15 K/uL (4.8-10.8)
[2018-11-28 05:14] LABS: Basophils # (auto) 0.01 K/uL (0-0.2); Basophils % (auto) 0.1 %; Hypochromasia Present; Immature Granulocytes # (auto) 0.05 K/uL (0.00-0.02); Immature Granulocytes % (auto) 0.3 %; Lymphocytes # (auto) 0.55 K/uL (1.2-3.4); Lymphocytes % (auto) 3.4 %; Microcytosis Present; Monocytes # (auto) 0.37 K/uL (0.11-0.59); Monocytes % (auto) 2.3 %; Neutrophils # (auto) 15.17 K/uL (1.4-6.5); Neutrophils % (auto) 93.9 %; Poikilocytosis Present
[2018-11-28 05:23] LABS: Bilirubin Direct 0.4 mg/dl (0-0.2); Bilirubin,Total 1.1 mg/dl (0.2-1); Calcium 7.2 mg/dl (8.5-10.1); Creatinine Clr Calc Pharmacy 22.8 ml/min; Est GFR (African American) 33.5; Est GFR (Non-African American) 28.9; Magnesium 2.1 mg/dl (1.8-2.4); Phosphorus 4.2 mg/dl (2.5-4.9); Potassium 4.5 mmol/L (3.5-5.1); Total Protein 6.4 gm/dl (6.4-8.2)
[2018-11-28] MEDS: ALBUT/IPRATROP 3MG/0.5MG NEB 3 ML VIAL NEB SCH ×6 (05:32→23:49)
[2018-11-28 06:41] LABS: Appearance Urine Turbid (Clear); Bacteria Urine Automated Negative (Negative); Bilirubin Urine Negative (Negative); Blood Urine 2+ (Negative); Color Urine Dark Yellow; Epithelial Cell Urine Auto >30 /lpf (0-5); Glucose Urine UA Negative (Negative); Ketones Urine Trace (Negative); Leukocyte Esterase Urine 2+ (Negative); Nitrite Urine Negative (Negative); Protein Urine 2+ (Negative); Specific Gravity Urine 1.024 (1.000-1.030); Urobilinogen Urine Negative (Negative); WBC Urine Automated >30 /hpf (0-5)
[2018-11-28 06:51] LABS: RBC Urine Automated 0-4 /hpf (0-4)
[2018-11-28] MEDS ORDERED: DOPAMINE / D5W 400 MG/250 ML BAG IV SCH (07:00)
--- NOTE | 2018-11-28 07:02 | CT Scan Report ---
CT chest wo con CLINICAL HISTORY: Hypoxia. Possible aspiration. COMPARISON STUDY: 01/24/2016, chest x-ray dated 11/27/2018 CT DOSE: 1468.37 mGy.cm TECHNIQUE: CT of the thorax was performed from the thoracic inlet to the lung bases. Images are revi ewed in the axial, sagittal, and coronal planes. IV contrast was not administered for this examinatio n. A dose lowering technique was utilized adhering to the principles of ALARA. FINDINGS: Thyroid: Imaged portions of the thyroid gland are normal in appearance. Thoracic aorta: The thoracic aorta is normal in course and caliber, noting standard 3 vessel arch arnie mary. Heart: The heart is enlarged with coronary artery calcifications Lungs and pleural spaces: There is moderate to severe pulmonary emphysema. There is mild septal thick ening/edema. There is lower lobe bronchial wall thickening. There are dependent airspace opacities, a telectatic versus infectious/inflammatory Mediastinum: There is no evidence of pathologic mediastinal lymphadenopathy Jolanta: There is no evidence of pathologic hilar adenopathy given the limitations of a noncontrast stud y Axilla: There is no evidence of pathologic axillary lymphadenopathy Upper abdomen: Partially visualized upper abdominal viscera is within normal limits. Skeletal structures: There are no lytic or blastic osseous lesions. IMPRESSION: 1. Moderate to severe pulmonary emphysema 2. Lower lobe bronchial wall thickening, and opacification of lower lobe bronchi. Aspiration must be considered. 3. Bilateral dependent airspace opacities, atelectatic versus infectious/inflammatory. 4. Mild interlobular septal thickening Electronically signed by: Mat Corbin M.D. 11/28/2018 7:01 AM
--- NOTE | 2018-11-28 07:18 | CT Scan Report ---
CT SCAN OF THE BRAIN WITHOUT IV CONTRAST CLINICAL HISTORY: Change in mental status. COMPARISON STUDY: CT of the brain dated 11/16/2018. TECHNIQUE: Unenhanced axial CT scan of the brain is performed from the vertex to the skull base. A do se lowering technique was utilized adhering to the principles of ALARA. The patient was scanned twice due to motion artifact. FINDINGS: Brain parenchyma: There are age-related involutional changes noting advanced subcortical and periven tricular microangiopathic change. 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 There is no hemorrhage, mass effect, or evidence of acute territorial ischemia by CT criteria. Arellano -white matter differentiation is preserved. No extra-axial fluid collection is seen. Ventricles, sulci, cisterns: Prominent secondary to involutional change. Intracranial vasculature: There is atherosclerotic calcification of the cavernous carotid and vertebr al arteries. Calvarium: Unremarkable. Sinuses and mastoids: There is trace mucosal thickening in the frontal sinuses. The remaining paranas al sinuses are clear. The mastoid air cells are well pneumatized. Orbits: The bony orbits are grossly intact. There are bilateral ocular lens implants. IMPRESSION: There is no hemorrhage, mass effect, or evidence of acute territorial ischemia by CT marct rodo noting a motion compromised examination. Electronically signed by: Chiki Jessica M.D. 11/28/2018 7:17 AM
--- NOTE | 2018-11-28 07:38 | XRay Report ---
XR chest 1V portable CLINICAL HISTORY: Abnormal chest x-ray. Interstitial pulmonary edema. COMPARISON STUDY: 11/27/2018 FINDINGS: The heart remains enlarged. There is diffuse elevation of the interstitium, a finding again consistent with mild interstitial pulmonary edema. There is no lobar consolidation. Slightly promine nt basilar markings are likely atelectatic.[ IMPRESSION: Cardiomegaly and interstitial pulmonary edema similar to the prior study Electronically signed by: Mat Corbin M.D. 11/28/2018 7:36 AM
--- NOTE | 2018-11-28 07:56 | CT Scan Report ---
ABDOMEN AND PELVIS CT WITHOUT CONTRAST HISTORY: Acutely altered mental status with hypoxia poss obstruction, or hydro TECHNIQUE: Multiaxial CT images of the abdomen and pelvis were performed without contrast. A dose lo wering technique was utilized adhering to the principles of ALARA. COMPARISON STUDY: Chest CT of same day, abdominal ultrasound 01/24/2016 FINDINGS: Bilateral dependent airspace opacities with mucous plugging, bronchial wall thickening and intralobul ar septal thickening. No pneumatosis or pneumoperitoneum. Limited study secondary to positioning of t he patient's upper extremities. Cardiomegaly with dense mitral annular calcifications. Limited evaluation of the solid abdominal organ structures without the use of IV contrast. There are two indeterminate hypodense 10 mm lesions of the inferior right hepatic lobe. Prior cholecystectomy. Intrahepatic and extrahepatic biliary ductal dilation is likely on a postsurgical basis. Spleen, panc reas and adrenal glands appear unremarkable. No renal or ureteral calculi or obstructive uropathy. Mi ld bladder wall thickening with partial distention. Prior hysterectomy with small cystocele. Ovoid cy stic lesion of the right adnexum, 3.1 x 4.3 cm. Left adnexum is unremarkable. Extensive calcification of the abdominal aorta without aneurysm. No adenopathy. Small hiatal hernia. No bowel obstruction or bowel wall thickening. Moderate volume of formed stool t hroughout the colon. No ascites or mesenteric inflammation. Nonvisualization of the appendix. Soft ti ssues are unremarkable. Demineralized appearance of the bones. Degenerative changes of the spine, pel vis and hips. IMPRESSION: 1. Mild urinary bladder wall thickening with partial distention. Correlate with urinalysis to exclude cystitis. 2. No renal or ureteral calculi or obstructive uropathy. 3. Indeterminate 3.1 x 4.3 cm cystic lesion of the right adnexum. This could be correlated with pelvi c ultrasound if of further clinical concern. 4. Bibasilar dependent consolidative opacities with mucous plugging. Correlate clinically to exclude aspiration. 5. Additional findings as above. Electronically signed by: Curtis Perez M.D. 11/28/2018 7:55 AM
--- NOTE | 2018-11-28 09:21 | Critical Care Progress Note ---
Date of Service November 28, 2018 Assessment & Plan (1) Sepsis: Neuro- awake. agitated last night but improved this morning CV- HD stable. bradycardia at times continue monitoring. hx of afib now in sinus. prolonged qt Pulmonary- acute hypoxic respiratory failure. aspiration pneumonia vs p neumonitis. continue o2 and titrate for sat >90%. ID- sepsis with evidence of end organ dysfunction most likely due to UTI. await urine and blood cultures. may have aspiration pneumonia vs pneumonitis as well. continue vancomycin and cefepime Renal- acute renal failure. prerenal vs ATN. watch UOP GI- diet if tolerated Heme- leukocytosis, anemia. heparin proph Endocrine- blood sugars controlled. can stop steroids Dispo- if remains stablle ok to transfer to floor later today (2) UTI (urinary tract infection): (3) Confusion: (4) Acute respiratory failure with hypoxia: (5) ARF (acute renal failure): Subjective no complaints this morning. agitated overnight. episodes of bradycardia early this morning Physical Exam Physical Exam: Constitutional: Comfortable NAD on facemask HEENT: normocephalic atraumatic. MMM. no cervical lymphadenopathy CV: RRR nl s1,s2 no murmurs rubs or gallops Lungs: clear to auscultation bilaterally. no accessory muscle use Abd: soft nontender nondistended. normal bowel sounds Ext: no edema. no cyanosis, no clubbing Skin: warm dry Neuro: awake alert. moving all extremities Psych: slightly agitated Results & Data Vital Signs (Past 12 Hours) Vital Signs Temp Pulse Pulse Resp BP BP BP 11/28/18 07:09 78 20 11/28/18 05:31 55 L 103/87 11/28/18 05:30 78 11/28/18 05:01 62 99/50 L 11/28/18 05:00 58 L 11/28/18 04:31 51 L 123/48 L 11/28/18 04:30 59 L 11/28/18 04:01 69 109/47 L 11/28/18 04:00 58 L 11/28/18 03:31 63 109/45 L 11/28/18 03:30 58 L 11/28/18 03:20 56 L 11/28/18 03:16 58 L 98/46 L 11/28/18 03:10 79 11/28/18 03:01 57 L 98/43 L 11/28/18 03:00 51 L 11/28/18 02:50 70 11/28/18 02:45 71 108/50 L 11/28/18 02:41 70 11/28/18 02:39 72 128/49 L 11/28/18 02:31 74 95/47 L 11/28/18 02:30 63 11/28/18 02:20 78 11/28/18 02:15 74 91/48 L 11/28/18 02:10 69 11/28/18 02:00 81 103/45 L 11/28/18 01:59 78 83/37 L 11/28/18 01:50 72 11/28/18 01:44 75 97/38 L 11/28/18 01:22 92/37 L 11/28/18 01:21 11/28/18 01:20 55 L 11/28/18 01:16 57 L 90/36 L 11/28/18 01:10 57 L 90/37 L 11/28/18 01:07 62 112/40 L 11/28/18 01:02 74 11/28/18 01:01 88 109/59 L 11/28/18 01:00 36.6 C 80 95 H 22 78/69 L 11/28/18 00:56 124 H 103/52 L 11/28/18 00:51 87 11/28/18 00:50 36.6 C 95 H 78/69 L 11/28/18 00:49 124 H 11/28/18 00:28 59 L 22 91/48 L 11/27/18 23:45 60 20 88/42 L 11/27/18 23:21 74 22 85/38 L 11/27/18 22:40 73 72 18 11/27/18 22:38 64 18 11/27/18 22:30 63 21 83/40 L 11/27/18 22:27 22 11/27/18 22:26 20 11/27/18 22:20 70 23 11/27/18 22:15 70 21 95/45 L 11/27/18 22:10 70 23 11/27/18 22:01 70 21 11/27/18 22:00 72 21 91/43 L 11/27/18 21:50 76 18 11/27/18 21:46 78 21 72/54 L 11/27/18 21:40 75 17 11/27/18 21:37 11/27/18 21:31 75 26 H 74/52 L 11/27/18 21:30 78 20 11/27/18 21:20 83 23 Pulse Ox 11/28/18 07:09 93 11/28/18 05:31 100 11/28/18 05:30 98 11/28/18 05:01 98 11/28/18 05:00 96 11/28/18 04:31 94 11/28/18 04:30 86 L 11/28/18 04:01 99 11/28/18 04:00 95 11/28/18 03:31 93 11/28/18 03:30 11/28/18 03:20 95 11/28/18 03:16 94 11/28/18 03:10 11/28/18 03:01 86 L 11/28/18 03:00 88 L 11/28/18 02:50 85 L 11/28/18 02:45 81 L 11/28/18 02:41 85 L 11/28/18 02:39 88 L 11/28/18 02:31 11/28/18 02:30 11/28/18 02:20 88 L 11/28/18 02:15 92 11/28/18 02:10 95 11/28/18 02:00 93 11/28/18 01:59 93 11/28/18 01:50 99 11/28/18 01:44 99 11/28/18 01:22 11/28/18 01:21 99 11/28/18 01:20 100 11/28/18 01:16 100 11/28/18 01:10 99 11/28/18 01:07 99 11/28/18 01:02 11/28/18 01:01 88 L 11/28/18 01:00 94 11/28/18 00:56 96 11/28/18 00:51 92 11/28/18 00:50 97 11/28/18 00:49 92 11/28/18 00:28 97 11/27/18 23:45 94 11/27/18 23:21 91 11/27/18 22:40 94 11/27/18 22:38 94 11/27/18 22:30 94 11/27/18 22:27 90 11/27/18 22:26 86 L 11/27/18 22:20 86 L 11/27/18 22:15 83 L 11/27/18 22:10 11/27/18 22:01 90 11/27/18 22:00 89 L 11/27/18 21:50 11/27/18 21:46 93 11/27/18 21:40 11/27/18 21:37 93 11/27/18 21:31 92 11/27/18 21:30 93 11/27/18 21:20 90 Laboratory Results Laboratory Results - last 24 hr 11/27/18 11/27/18 11/27/18 20:43 20:43 22:01 WBC 17.02 H RBC 4.43 Hgb 8.9 L Hct 27.9 L MCV 63.0 L MCH 20.1 L MCHC 31.9 L RDW Std Deviation 37.7 RDW Coeff of Eren 16.5 H Plt Count 180 MPV 10.3 Immature Gran % (Auto) 0.4 Neut % (Auto) 93.5 Lymph % (Auto) 2.7 [place] % (Auto) 3.1 Eos % (Auto) 0.1 Baso % (Auto) 0.2 Immature Gran # (Auto) 0.06 H Neut # (Auto) 15.93 H Lymph # (Auto) 0.46 L [place] # (Auto) 0.53 Eos # (Auto) 0.01 Baso # (Auto) 0.03 Absolute Nucleated RBC 0.02 H Nucleated RBC % (auto) 0.1 Hypochromasia Present Poikilocytosis Microcytosis Present Target Cells 1+ Sodium 138 Potassium 4.4 Chloride 104 Carbon Dioxide 26 Anion Gap 8.0 BUN 20 H Creatinine 1.45 H Est Cr Clr Drug Dosing 23.4 Est GFR ( Amer) 37.4 Est GFR (Non-Af Amer) 32.3 BUN/Creatinine Ratio 13.8 Glucose 125 H Lactate 3.1 H* Calcium 8.8 Phosphorus Magnesium 2.3 Total Bilirubin 1.1 H Direct Bilirubin AST 13 L ALT 16 Alkaline Phosphatase 77 Ammonia Troponin I < 0.015 Total Protein 7.6 Albumin 3.7 Globulin 3.9 Albumin/Globulin Ratio 1.0 Procalcitonin Urine Color Urine Appearance Urine pH Ur Specific [place] Urine Protein Urine Glucose (UA) Urine Ketones Urine Blood Urine Nitrite Urine Bilirubin Urine Urobilinogen Ur Leukocyte Esterase Urine WBC (Auto) Urine RBC (Auto) U Hyaline Cast (Auto) U Epithel Cells (Auto) Urine Bacteria (Auto) Granular Casts Urine Yeast Nasal Screen MRSA (PCR) 11/27/18 11/28/18 11/28/18 22:01 01:00 04:48 WBC 16.15 H RBC 3.86 L Hgb 7.7 L Hct 24.5 L MCV 63.5 L MCH 19.9 L MCHC 31.4 L RDW Std Deviation 38.2 RDW Coeff of Eren 16.5 H Plt Count 166 MPV 9.8 Immature Gran % (Auto) 0.3 Neut % (Auto) 93.9 Lymph % (Auto) 3.4 [place] % (Auto) 2.3 Eos % (Auto) 0.0 Baso % (Auto) 0.1 Immature Gran # (Auto) 0.05 H Neut # (Auto) 15.17 H Lymph # (Auto) 0.55 L [place] # (Auto) 0.37 Eos # (Auto) 0.00 Baso # (Auto) 0.01 Absolute Nucleated RBC Nucleated RBC % (auto) Hypochromasia Present Poikilocytosis Present Microcytosis Present Target Cells Sodium Potassium Chloride Carbon Dioxide Anion Gap BUN Creatinine Est Cr Clr Drug Dosing Est GFR ( Amer) Est GFR (Non-Af Amer) BUN/Creatinine Ratio Glucose Lactate Calcium Phosphorus Magnesium Total Bilirubin Direct Bilirubin AST ALT Alkaline Phosphatase Ammonia < 10.0 L Troponin I Total Protein Albumin Globulin Albumin/Globulin Ratio Procalcitonin Urine Color Urine Appearance Urine pH Ur Specific [place] Urine Protein Urine Glucose (UA) Urine Ketones Urine Blood Urine Nitrite Urine Bilirubin Urine Urobilinogen Ur Leukocyte Esterase Urine WBC (Auto) Urine RBC (Auto) U Hyaline Cast (Auto) U Epithel Cells (Auto) Urine Bacteria (Auto) Granular Casts Urine Yeast Nasal Screen MRSA (PCR) Negative 11/28/18 11/28/18 11/28/18 04:48 04:48 04:48 WBC RBC Hgb Hct MCV MCH MCHC RDW Std Deviation RDW Coeff of Eren Plt Count MPV Immature Gran % (Auto) Neut % (Auto) Lymph % (Auto) [place] % (Auto) Eos % (Auto) Baso % (Auto) Immature Gran # (Auto) Neut # (Auto) Lymph # (Auto) [place] # (Auto) Eos # (Auto) Baso # (Auto) Absolute Nucleated RBC Nucleated RBC % (auto) Hypochromasia Poikilocytosis Microcytosis Target Cells Sodium 139 Potassium 4.5 Chloride 111 H Carbon Dioxide 22 Anion Gap 6.0 BUN 22 H Creatinine 1.59 H Est Cr Clr Drug Dosing 22.8 Est GFR ( Amer) 33.5 Est GFR (Non-Af Amer) 28.9 BUN/Creatinine Ratio 14.0 Glucose 156 H Lactate 2.5 H* Calcium 7.2 L D Phosphorus 4.2 Magnesium 2.1 Total Bilirubin 1.1 H Direct Bilirubin 0.4 H AST 22 ALT 22 Alkaline Phosphatase 71 Ammonia Troponin I Total Protein 6.4 Albumin 3.0 L Globulin Albumin/Globulin Ratio Procalcitonin 3.54 H Urine Color Urine Appearance Urine pH Ur Specific [place] Urine Protein Urine Glucose (UA) Urine Ketones Urine Blood Urine Nitrite Urine Bilirubin Urine Urobilinogen Ur Leukocyte Esterase Urine WBC (Auto) Urine RBC (Auto) U Hyaline Cast (Auto) U Epithel Cells (Auto) Urine Bacteria (Auto) Granular Casts Urine Yeast Nasal Screen MRSA (PCR) 11/28/18 06:20 WBC RBC Hgb Hct MCV MCH MCHC RDW Std Deviation RDW Coeff of Eren Plt Count MPV Immature Gran % (Auto) Neut % (Auto) Lymph % (Auto) [place] % (Auto) Eos % (Auto) Baso % (Auto) Immature Gran # (Auto) Neut # (Auto) Lymph # (Auto) [place] # (Auto) Eos # (Auto) Baso # (Auto) Absolute Nucleated RBC Nucleated RBC % (auto) Hypochromasia Poikilocytosis Microcytosis Target Cells Sodium Potassium Chloride Carbon Dioxide Anion Gap BUN Creatinine Est Cr Clr Drug Dosing Est GFR ( Amer) Est GFR (Non-Af Amer) BUN/Creatinine Ratio Glucose Lactate Calcium Phosphorus Magnesium Total Bilirubin Direct Bilirubin AST ALT Alkaline Phosphatase Ammonia Troponin I Total Protein Albumin Globulin Albumin/Globulin Ratio Procalcitonin Urine Color Dark Yellow Urine Appearance Turbid A Urine pH 5.0 Ur Specific [place] 1.024 Urine Protein 2+ H Urine Glucose (UA) Negative Urine Ketones Trace H Urine Blood 2+ H Urine Nitrite Negative Urine Bilirubin Negative Urine Urobilinogen Negative Ur Leukocyte Esterase 2+ H Urine WBC (Auto) >30 H Urine RBC (Auto) 0-4 U Hyaline Cast (Auto) 1-5 U Epithel Cells (Auto) >30 H Urine Bacteria (Auto) Negative Granular Casts 1-5 H Urine Yeast Not Reportable Nasal Screen MRSA (PCR) (1) Sepsis Sepsis type: sepsis due to unspecified organism Qualified Code(s): A41.9 - Sepsis, unspecified organism (2) UTI (urinary tract infection) Hematuria presence: without hematuria Urinary tract infection type: site unspecified Qualified Code(s): N39.0 - Urinary tract infection, site not specified
[2018-11-28] MEDS: SERTRALINE HCL 50 MG TABLET PO SCH (09:24)
[2018-11-28 10:34] LABS: Basophilic Stippling Occasional; Target Cells 1+
[2018-11-28 10:49] LABS: Hematocrit (blood only) 24.4 % (37-47); Hemoglobin 7.7 g/dL (12.0-16.0)
[2018-11-28 10:51] LABS: iSTAT Allen Test Pass; iSTAT Arterial Blood Gas HCO3 17 meg/L (19-24); iSTAT Arterial Blood Gas pCO2 37 mmHg (35-46); iSTAT Arterial Blood Gas pH 7.28 (7.35-7.45); iSTAT Carbon Dioxide 18 mEq/l (24-31); iSTAT FiO2 100 %; iSTAT Site R Radial
[2018-11-28 10:51] LABS: iSTAT Allen Test Pass; iSTAT Arterial Blood Gas HCO3 20 meg/L (19-24); iSTAT Arterial Blood Gas pCO2 38 mmHg (35-46); iSTAT Arterial Blood Gas pH 7.33 (7.35-7.45); iSTAT Carbon Dioxide 21 mEq/l (24-31); iSTAT FiO2 100 %; iSTAT Site L Radial
[2018-11-28 10:59] LABS: INR 1.1 (0.9-1.1); Prothrombin Time 11.3 Seconds (9.0-12.0)
[2018-11-28 11:59] LABS: iSTAT Arterial Blood Gas HCO3 19 meg/L (19-24); iSTAT Arterial Blood Gas pCO2 46 mmHg (35-46); iSTAT Arterial Blood Gas pH 7.23 (7.35-7.45); iSTAT Carbon Dioxide 21 mEq/l (24-31)
[2018-11-28 12:00] LABS: iSTAT Sample Type Arterial
[2018-11-28] MEDS: HEPARIN SOD 5,000 UNIT/0.5 ML VIAL SQ SCH ×2 (13:52→21:25)
--- NOTE | 2018-11-28 14:14 | Pharmacy Report ---
Pharmacy Abx Initial Consult - Date of Service November 28, 2018 - Pharmacy Dosing Scope Date of Consult: 11/27 Consultation requested by: Dr. Evans Pharmacy is consulted to initiate vancomycin IV/PO dosing therapy, order appropriate labs and adjust drug dose/frequency. - Subjective The patient is a 87 year old F admitted on 11/27/18 23:48. - Objective Height: 5 ft 6 in Weight: 57.9 kg Vital Signs (Past 12hrs): Vital Signs Temp Pulse Pulse Resp BP Pulse Ox 11/28/18 11:27 97 H 18 95 11/28/18 11:01 36.8 C 81 18 163/71 H 96 11/28/18 10:01 81 17 117/66 94 11/28/18 09:00 84 136/69 11/28/18 08:31 90 141/60 H 91 11/28/18 08:00 81 20 148/80 H 95 11/28/18 07:30 81 120/58 L 96 11/28/18 07:09 78 20 93 11/28/18 07:00 75 117/52 L 90 11/28/18 05:31 55 L 103/87 100 11/28/18 05:30 78 98 11/28/18 05:01 62 99/50 L 98 11/28/18 05:00 58 L 96 11/28/18 04:31 51 L 123/48 L 94 11/28/18 04:30 59 L 86 L 11/28/18 04:01 69 109/47 L 99 11/28/18 04:00 58 L 95 11/28/18 03:31 63 109/45 L 93 11/28/18 03:30 58 L 11/28/18 03:20 56 L 95 11/28/18 03:16 58 L 98/46 L 94 11/28/18 03:10 79 11/28/18 03:01 57 L 98/43 L 86 L 11/28/18 03:00 51 L 88 L 11/28/18 02:50 70 85 L 11/28/18 02:45 71 108/50 L 81 L 11/28/18 02:41 70 85 L 11/28/18 02:39 72 128/49 L 88 L 11/28/18 02:31 74 95/47 L 11/28/18 02:30 63 11/28/18 02:20 78 88 L 11/28/18 02:15 74 91/48 L 92 11/28/18 02:10 69 95 Lab Results (24hrs): Laboratory Tests (24 Hours) 11/28/18 11/28/18 11/28/18 04:48 04:48 04:48 WBC 16.15 H Neut # (Auto) 15.17 H Creatinine 1.59 H Est Cr Clr Drug Dosing 22.8 Procalcitonin 3.54 H 11/27/18 11/27/18 20:43 20:43 WBC 17.02 H Neut # (Auto) 15.93 H Creatinine 1.45 H Est Cr Clr Drug Dosing 23.4 Procalcitonin Micro Results: 11/28/18 06:20 Urine Culture - Pending Urine,Straight Cath 11/27/18 22:48 Aerobic Blood Culture - Pending Blood Anaerobic Blood Culture - Pending 11/27/18 22:01 Aerobic Blood Culture - Pending Blood Anaerobic Blood Culture - Pending - Assessment & Plan Assessment 87 year old F with dementia presenting with sepsis, suspected urinary source. Started empirically on vancomycin/cefepime. Leukocytosis trending down,afebrile. Also with aspiration event, monitoring. De-escalation with further culture results. MRSA nasal swab negative. Plan Vancomycin IV * Estimated PK Parameters: Vd 0.7 L/kg, Jose hr-1, t1/2 30 hr * Loading dose: 1250mg (23 mg/kg) * Current half life estimates ~30 hours, uncertain of renal function trend/baseline. Will check random level ~18 hours to ensure proper levels. * Goal trough level 15-20 * Random ordered for 11/28 @1999 Cefepime dosed appropriately for renal function. Pharmacy will continue to follow and will adjust dose/frequency as necessary. Thank you.
--- NOTE | 2018-11-28 19:02 | Hospitalist Progress Note ---
Date of Service November 28, 2018 Assessment & Plan (1) Confusion: This patient is an 87yo C female with history of dementia, paroxysmal SVT, bladder prolapse, LBBB, HTN, and depression who presented with sepsis secondary to UTI, confusion/agitation, and possible aspiration pneumonitis versus pne umonia Acute metabolic encephalopathy-improved (2) Sepsis: With encephalopathy, elevated lactate, elevated procalcitonin level, UTI and pneumonia evident on urinalysis and chest x-ray/CT, with tachycardia, hypotension, and tachypnea along with hypoxia. Leukocytosis is improved today, remains afebrile. Blood pressures are much improved today Blood cultures with no growth to date, urine culture with no growth to date -Continue cefepime and vancomycin for broad empiric coverage for both pulmonary and urinary sources -Has already been volume resuscitated -Continue maintenance IV fluids until taking better p.o. -Follow pro calcitonin, CBC in the morning (3) Pneumonitis: With bibasilar infiltrates seen on CT of the chest and profound hypoxia upon admission. She may have a chemical aspiration pneumonitis versus aspiration pneumonia as per my discussion with pulmonology today. Hypoxia improving -Continue cefepime and vancomycin -Continue to monitor and follow chest imaging until resolved (4) Acute respiratory failure with hypoxia: Patient with hypoxia in ER, episodes with saturations in the 60's. She has been removing medical equipment, BiPAP/high flow NC and facemask. CXR suggestive of pulmonary edema, chest CT with bibasilar pneumonia as above Is now improved and is requiring 3 L nasal cannula -Continue supplemental O2 as needed to maintain saturations > 94% -Family stated no intubation/mechanical ventilation at first, however, now agree that intubation would be alright if necessary. (5) UTI (urinary tract infection): With abnormal UA and sepsis as above -Continue cefepime and await urine culture results (6) Bladder prolapse: With severe bladder prolapse on examination, is at high risk for recurrent UTIs (7) Hypotension: Now improved with volume resuscitation and treatment of sepsis -Continue holding home diltiazem (8) Hypertension: With hypotension as above -Holding home diltiazem (9) ARF (acute renal failure): Baseline creatinine at 1.0, now up to 1.5 and likely secondary to ATN from sepsis -Continue volume resuscitation -Follow BMP in the morning -Renally dose medications -Avoid NSAIDs and other nephrotoxins (10) Anemia: Chronic and thought to be from thalassemia in the past, however is considerably lower than previous baseline around 9. Today's hemoglobin is 7.7 and may be somewhat hemo-dilutional -No need for transfusion at this point -Follow CBC in the morning (11) Cognitive impairment: With secondary delirium in the setting of what sounds like mild cognitive impairment -Haldol as needed for delirium -Supportive care -Continue sertraline which is presumably for depression (12) LBBB (left bundle branch block): Chronic (13) PSVT (paroxysmal supraventricular tachycardia): None so far here, remains in sinus rhythm with first-degree AV block -Holding home diltiazem but can restart if blood pressure can tolerate tomorrow (14) DVT prophylaxis: Heparin SQ Disposition-stable for downgrade out of ICU to medical telemetry Subjective Patient pleasantly confused. Denies pain anywhere. Discussed the case with the supervisor covering and lining. From a pulmonary perspective, she is much improved-she has been weaned down to 6 L via nasal cannula and is stable. He suspects likely chemical pneumonitis versus aspiration pneumonia as well as UTI as a cause of her sepsis. She has been much less agitated throughout the day but is still requiring a one-on-one. Review of Systems Review of Systems: Unobtainable due to cognitive status Physical Exam Constitutional: + thin; not in distress Eyes: PERRL, conjunctivae normal, anicteric sclerae ENMT: Mouth: + edentulous Neck: trachea midline, no thyromegaly Respiratory: normal respiratory effort (With nasal cannula in place) Auscultation: + diminished lung sounds (Throughout) and + crackles (Bibasilar); no wheezes Cardiovascular: Rate/Rhythm: regular rate and regular rhythm Heart Sounds: + murmur (3/6 systolic at the LLSB) Extremities: no edema Gastrointestinal (Abdomen): normal bowel sounds, soft, nontender, no hepatosplenomegaly Musculoskeletal: Extremities: extremities normal to inspection; no cyanosis and no clubbing Skin: no rashes, warm and dry Neurologic: moves all extremities and awake; no focal motor deficits Psychiatric: Orientation: alert, oriented to person and cooperative; + not oriented to place and + not oriented to time Results & Data Vital Signs (Past 12 Hours) Vital Signs Temp Pulse Pulse Resp BP Pulse Ox 11/28/18 16:01 81 16 128/58 L 96 11/28/18 15:35 80 20 96 11/28/18 14:02 96 H 19 91 11/28/18 14:01 90 16 135/60 92 11/28/18 13:01 82 15 120/58 L 91 11/28/18 12:01 86 17 132/60 94 11/28/18 12:00 85 22 93 11/28/18 11:27 97 H 18 95 11/28/18 11:01 36.8 C 81 18 163/71 H 96 11/28/18 10:01 81 17 117/66 94 11/28/18 09:00 84 136/69 11/28/18 08:31 90 141/60 H 91 11/28/18 08:00 81 20 148/80 H 95 11/28/18 07:30 81 120/58 L 96 11/28/18 07:09 78 20 93 Laboratory Results 11/28/18 11/28/18 11/28/18 Range/Units 10:41 10:41 10:41 WBC (4.8-10.8) K/uL RBC (4.2-5.4) M/uL Hgb (12.0-16.0) g/dL Hct (37-47) % MCV (80-100) fL MCH (25-34) pg MCHC (32-36) g/dL RDW Std Deviation (36.4-46.3) fL RDW Coeff of Eren (11.5-14.5) % Plt Count (130-400) K/uL MPV (7.4-10.4) fL Immature Gran % (Auto) % Neut % (Auto) % Lymph % (Auto) % [place] % (Auto) % Eos % (Auto) % Baso % (Auto) % Immature Gran # (Auto) (0.00-0.02) K/uL Neut # (Auto) (1.4-6.5) K/uL Lymph # (Auto) (1.2-3.4) K/uL [place] # (Auto) (0.11-0.59) K/uL Eos # (Auto) (0-0.5) K/uL Baso # (Auto) (0-0.2) K/uL Absolute Nucleated RBC (0-0) K/uL Nucleated RBC % (auto) % Hypochromasia Poikilocytosis Basophilic Stippling Microcytosis Target Cells PT 11.3 (9.0-12.0) Seconds INR 1.1 (0.9-1.1) Specimen Type Sample Site POC pH (7.35-7.45) POC pCO2 (35-46) mmHg POC pO2 (80-95) mmHg POC HCO3 (19-24) mirna/L POC Total CO2 (24-31) mEq/l POC Base Excess (-9-1.8) mirna/L POC ABG O2 Sat (90-95) % Edilberto Test O2 Delivery Device POC FiO2 % Sodium (136-145) mmol/L Potassium (3.5-5.1) mmol/L Chloride (98-107) mmol/L Carbon Dioxide (21-32) mmol/L Anion Gap (3-11) BUN (7-18) mg/dl Creatinine (0.6-1.2) mg/dl Est Cr Clr Drug Dosing ml/min Est GFR ( Amer) Est GFR (Non-Af Amer) BUN/Creatinine Ratio (10-20) Glucose (70-99) mg/dl POC Glucose (70-99) Lactate 1.3 (0.4-2.0) mmol/L Calcium (8.5-10.1) mg/dl Ionized Calcium 1.00 L (1.12-1.32) mmol/L Phosphorus (2.5-4.9) mg/dl Magnesium (1.8-2.4) mg/dl Total Bilirubin (0.2-1) mg/dl Direct Bilirubin (0-0.2) mg/dl AST (15-37) U/L ALT (12-78) U/L Alkaline Phosphatase (45-117) U/L Ammonia (11-32) umol/L Troponin I (0-0.045) ng/ml Total Protein (6.4-8.2) gm/dl Albumin (3.4-5.0) gm/dl Globulin (2.5-4.0) gm/dl Albumin/Globulin Ratio (0.9-2) Procalcitonin (0-0.5) ng/ml Urine Color Urine Appearance (Clear) Urine pH (4.5-7.5) Ur Specific [place] (1.000-1.030) Urine Protein (Negative) Urine Glucose (UA) (Negative) Urine Ketones (Negative) Urine Blood (Negative) Urine Nitrite (Negative) Urine Bilirubin (Negative) Urine Urobilinogen (Negative) Ur Leukocyte Esterase (Negative) Urine WBC (Auto) (0-5) /hpf Urine RBC (Auto) (0-4) /hpf U Hyaline Cast (Auto) (0-5) /lpf U Epithel Cells (Auto) (0-5) /lpf Urine Bacteria (Auto) (Negative) Granular Casts (0) /lpf Urine Yeast Nasal Screen MRSA (PCR) (Negative) Blood Type Antibody Screen 11/28/18 11/28/18 11/28/18 Range/Units 10:41 10:41 10:40 WBC (4.8-10.8) K/uL RBC (4.2-5.4) M/uL Hgb 7.7 L (12.0-16.0) g/dL Hct 24.4 L (37-47) % MCV (80-100) fL MCH (25-34) pg MCHC (32-36) g/dL RDW Std Deviation (36.4-46.3) fL RDW Coeff of Eren (11.5-14.5) % Plt Count (130-400) K/uL MPV (7.4-10.4) fL Immature Gran % (Auto) % Neut % (Auto) % Lymph % (Auto) % [place] % (Auto) % Eos % (Auto) % Baso % (Auto) % Immature Gran # (Auto) (0.00-0.02) K/uL Neut # (Auto) (1.4-6.5) K/uL Lymph # (Auto) (1.2-3.4) K/uL [place] # (Auto) (0.11-0.59) K/uL Eos # (Auto) (0-0.5) K/uL Baso # (Auto) (0-0.2) K/uL Absolute Nucleated RBC (0-0) K/uL Nucleated RBC % (auto) % Hypochromasia Poikilocytosis Basophilic Stippling Microcytosis Target Cells PT (9.0-12.0) Seconds INR (0.9-1.1) Specimen Type Sample Site POC pH (7.35-7.45) POC pCO2 (35-46) mmHg POC pO2 (80-95) mmHg POC HCO3 (19-24) mirna/L POC Total CO2 (24-31) mEq/l POC Base Excess (-9-1.8) mirna/L POC ABG O2 Sat (90-95) % Edilberto Test O2 Delivery Device POC FiO2 % Sodium (136-145) mmol/L Potassium (3.5-5.1) mmol/L Chloride (98-107) mmol/L Carbon Dioxide (21-32) mmol/L Anion Gap (3-11) BUN (7-18) mg/dl Creatinine (0.6-1.2) mg/dl Est Cr Clr Drug Dosing ml/min Est GFR ( Amer) Est GFR (Non-Af Amer) BUN/Creatinine Ratio (10-20) Glucose (70-99) mg/dl POC Glucose 152 H (70-99) Lactate (0.4-2.0) mmol/L Calcium (8.5-10.1) mg/dl Ionized Calcium (1.12-1.32) mmol/L Phosphorus (2.5-4.9) mg/dl Magnesium (1.8-2.4) mg/dl Total Bilirubin (0.2-1) mg/dl Direct Bilirubin (0-0.2) mg/dl AST (15-37) U/L ALT (12-78) U/L Alkaline Phosphatase (45-117) U/L Ammonia (11-32) umol/L Troponin I (0-0.045) ng/ml Total Protein (6.4-8.2) gm/dl Albumin (3.4-5.0) gm/dl Globulin (2.5-4.0) gm/dl Albumin/Globulin Ratio (0.9-2) Procalcitonin (0-0.5) ng/ml Urine Color Urine Appearance (Clear) Urine pH (4.5-7.5) Ur Specific [place] (1.000-1.030) Urine Protein (Negative) Urine Glucose (UA) (Negative) Urine Ketones (Negative) Urine Blood (Negative) Urine Nitrite (Negative) Urine Bilirubin (Negative) Urine Urobilinogen (Negative) Ur Leukocyte Esterase (Negative) Urine WBC (Auto) (0-5) /hpf Urine RBC (Auto) (0-4) /hpf U Hyaline Cast (Auto) (0-5) /lpf U Epithel Cells (Auto) (0-5) /lpf Urine Bacteria (Auto) (Negative) Granular Casts (0) /lpf Urine Yeast Nasal Screen MRSA (PCR) (Negative) Blood Type A Negative Antibody Screen NEGATIVE 11/28/18 11/28/18 11/28/18 Range/Units 06:20 05:50 04:48 WBC (4.8-10.8) K/uL RBC (4.2-5.4) M/uL Hgb (12.0-16.0) g/dL Hct (37-47) % MCV (80-100) fL MCH (25-34) pg MCHC (32-36) g/dL RDW Std Deviation (36.4-46.3) fL RDW Coeff of Eren (11.5-14.5) % Plt Count (130-400) K/uL MPV (7.4-10.4) fL Immature Gran % (Auto) % Neut % (Auto) % Lymph % (Auto) % [place] % (Auto) % Eos % (Auto) % Baso % (Auto) % Immature Gran # (Auto) (0.00-0.02) K/uL Neut # (Auto) (1.4-6.5) K/uL Lymph # (Auto) (1.2-3.4) K/uL [place] # (Auto) (0.11-0.59) K/uL Eos # (Auto) (0-0.5) K/uL Baso # (Auto) (0-0.2) K/uL Absolute Nucleated RBC (0-0) K/uL Nucleated RBC % (auto) % Hypochromasia Poikilocytosis Basophilic Stippling Microcytosis Target Cells PT (9.0-12.0) Seconds INR (0.9-1.1) Specimen Type Sample Site L Radial POC pH 7.33 L (7.35-7.45) POC pCO2 38 (35-46) mmHg POC pO2 105 H (80-95) mmHg POC HCO3 20 (19-24) mirna/L POC Total CO2 21 L (24-31) mEq/l POC Base Excess -6.0 (-9-1.8) mirna/L POC ABG O2 Sat 98.0 H (90-95) % Edilberto Test Pass O2 Delivery Device NonRb Mask POC FiO2 100 % Sodium (136-145) mmol/L Potassium (3.5-5.1) mmol/L Chloride (98-107) mmol/L Carbon Dioxide (21-32) mmol/L Anion Gap (3-11) BUN (7-18) mg/dl Creatinine (0.6-1.2) mg/dl Est Cr Clr Drug Dosing ml/min Est GFR ( Amer) Est GFR (Non-Af Amer) BUN/Creatinine Ratio (10-20) Glucose (70-99) mg/dl POC Glucose (70-99) Lactate (0.4-2.0) mmol/L Calcium (8.5-10.1) mg/dl Ionized Calcium (1.12-1.32) mmol/L Phosphorus (2.5-4.9) mg/dl Magnesium (1.8-2.4) mg/dl Total Bilirubin (0.2-1) mg/dl Direct Bilirubin (0-0.2) mg/dl AST (15-37) U/L ALT (12-78) U/L Alkaline Phosphatase (45-117) U/L Ammonia (11-32) umol/L Troponin I (0-0.045) ng/ml Total Protein (6.4-8.2) gm/dl Albumin (3.4-5.0) gm/dl Globulin (2.5-4.0) gm/dl Albumin/Globulin Ratio (0.9-2) Procalcitonin 3.54 H (0-0.5) ng/ml Urine Color Dark Yellow Urine Appearance Turbid A (Clear) Urine pH 5.0 (4.5-7.5) Ur Specific [place] 1.024 (1.000-1.030) Urine Protein 2+ H (Negative) Urine Glucose (UA) Negative (Negative) Urine Ketones Trace H (Negative) Urine Blood 2+ H (Negative) Urine Nitrite Negative (Negative) Urine Bilirubin Negative (Negative) Urine Urobilinogen Negative (Negative) Ur Leukocyte Esterase 2+ H (Negative) Urine WBC (Auto) >30 H (0-5) /hpf Urine RBC (Auto) 0-4 (0-4) /hpf U Hyaline Cast (Auto) 1-5 (0-5) /lpf U Epithel Cells (Auto) >30 H (0-5) /lpf Urine Bacteria (Auto) Negative (Negative) Granular Casts 1-5 H (0) /lpf Urine Yeast Not Reportable Nasal Screen MRSA (PCR) (Negative) Blood Type Antibody Screen 11/28/18 11/28/18 11/28/18 Range/Units 04:48 04:48 04:48 WBC 16.15 H (4.8-10.8) K/uL RBC 3.86 L (4.2-5.4) M/uL Hgb 7.7 L (12.0-16.0) g/dL Hct 24.5 L (37-47) % MCV 63.5 L (80-100) fL MCH 19.9 L (25-34) pg MCHC 31.4 L (32-36) g/dL RDW Std Deviation 38.2 (36.4-46.3) fL RDW Coeff of Eren 16.5 H (11.5-14.5) % Plt Count 166 (130-400) K/uL MPV 9.8 (7.4-10.4) fL Immature Gran % (Auto) 0.3 % Neut % (Auto) 93.9 % Lymph % (Auto) 3.4 % [place] % (Auto) 2.3 % Eos % (Auto) 0.0 % Baso % (Auto) 0.1 % Immature Gran # (Auto) 0.05 H (0.00-0.02) K/uL Neut # (Auto) 15.17 H (1.4-6.5) K/uL Lymph # (Auto) 0.55 L (1.2-3.4) K/uL [place] # (Auto) 0.37 (0.11-0.59) K/uL Eos # (Auto) 0.00 (0-0.5) K/uL Baso # (Auto) 0.01 (0-0.2) K/uL Absolute Nucleated RBC (0-0) K/uL Nucleated RBC % (auto) % Hypochromasia Present Poikilocytosis Present Basophilic Stippling Occasional Microcytosis Present Target Cells 1+ PT (9.0-12.0) Seconds INR (0.9-1.1) Specimen Type Sample Site POC pH (7.35-7.45) POC pCO2 (35-46) mmHg POC pO2 (80-95) mmHg POC HCO3 (19-24) mirna/L POC Total CO2 (24-31) mEq/l POC Base Excess (-9-1.8) mirna/L POC ABG O2 Sat (90-95) % Edilberto Test O2 Delivery Device POC FiO2 % Sodium 139 (136-145) mmol/L Potassium 4.5 (3.5-5.1) mmol/L Chloride 111 H (98-107) mmol/L Carbon Dioxide 22 (21-32) mmol/L Anion Gap 6.0 (3-11) BUN 22 H (7-18) mg/dl Creatinine 1.59 H (0.6-1.2) mg/dl Est Cr Clr Drug Dosing 22.8 ml/min Est GFR ( Amer) 33.5 Est GFR (Non-Af Amer) 28.9 BUN/Creatinine Ratio 14.0 (10-20) Glucose 156 H (70-99) mg/dl POC Glucose (70-99) Lactate 2.5 H* (0.4-2.0) mmol/L Calcium 7.2 L D (8.5-10.1) mg/dl Ionized Calcium (1.12-1.32) mmol/L Phosphorus 4.2 (2.5-4.9) mg/dl Magnesium 2.1 (1.8-2.4) mg/dl Total Bilirubin 1.1 H (0.2-1) mg/dl Direct Bilirubin 0.4 H (0-0.2) mg/dl AST 22 (15-37) U/L ALT 22 (12-78) U/L Alkaline Phosphatase 71 (45-117) U/L Ammonia (11-32) umol/L Troponin I (0-0.045) ng/ml Total Protein 6.4 (6.4-8.2) gm/dl Albumin 3.0 L (3.4-5.0) gm/dl Globulin (2.5-4.0) gm/dl Albumin/Globulin Ratio (0.9-2) Procalcitonin (0-0.5) ng/ml Urine Color Urine Appearance (Clear) Urine pH (4.5-7.5) Ur Specific [place] (1.000-1.030) Urine Protein (Negative) Urine Glucose (UA) (Negative) Urine Ketones (Negative) Urine Blood (Negative) Urine Nitrite (Negative) Urine Bilirubin (Negative) Urine Urobilinogen (Negative) Ur Leukocyte Esterase (Negative) Urine WBC (Auto) (0-5) /hpf Urine RBC (Auto) (0-4) /hpf U Hyaline Cast (Auto) (0-5) /lpf U Epithel Cells (Auto) (0-5) /lpf Urine Bacteria (Auto) (Negative) Granular Casts (0) /lpf Urine Yeast Nasal Screen MRSA (PCR) (Negative) Blood Type Antibody Screen 11/28/18 11/28/18 11/28/18 Range/Units 01:07 01:00 00:20 WBC (4.8-10.8) K/uL RBC (4.2-5.4) M/uL Hgb (12.0-16.0) g/dL Hct (37-47) % MCV (80-100) fL MCH (25-34) pg MCHC (32-36) g/dL RDW Std Deviation (36.4-46.3) fL RDW Coeff of Eren (11.5-14.5) % Plt Count (130-400) K/uL MPV (7.4-10.4) fL Immature Gran % (Auto) % Neut % (Auto) % Lymph % (Auto) % [place] % (Auto) % Eos % (Auto) % Baso % (Auto) % Immature Gran # (Auto) (0.00-0.02) K/uL Neut # (Auto) (1.4-6.5) K/uL Lymph # (Auto) (1.2-3.4) K/uL [place] # (Auto) (0.11-0.59) K/uL Eos # (Auto) (0-0.5) K/uL Baso # (Auto) (0-0.2) K/uL Absolute Nucleated RBC (0-0) K/uL Nucleated RBC % (auto) % Hypochromasia Poikilocytosis Basophilic Stippling Microcytosis Target Cells PT (9.0-12.0) Seconds INR (0.9-1.1) Specimen Type Arterial Sample Site R Radial POC pH 7.28 L 7.23 L (7.35-7.45) POC pCO2 37 46 (35-46) mmHg POC pO2 89 17 L (80-95) mmHg POC HCO3 17 L 19 (19-24) mirna/L POC Total CO2 18 L 21 L (24-31) mEq/l POC Base Excess -10.0 L -8.0 (-9-1.8) mirna/L POC ABG O2 Sat 96.0 H 18.0 L (90-95) % Edilberto Test Pass O2 Delivery Device NonRb Mask POC FiO2 100 % Sodium (136-145) mmol/L Potassium (3.5-5.1) mmol/L Chloride (98-107) mmol/L Carbon Dioxide (21-32) mmol/L Anion Gap (3-11) BUN (7-18) mg/dl Creatinine (0.6-1.2) mg/dl Est Cr Clr Drug Dosing ml/min Est GFR ( Amer) Est GFR (Non-Af Amer) BUN/Creatinine Ratio (10-20) Glucose (70-99) mg/dl POC Glucose (70-99) Lactate (0.4-2.0) mmol/L Calcium (8.5-10.1) mg/dl Ionized Calcium (1.12-1.32) mmol/L Phosphorus (2.5-4.9) mg/dl Magnesium (1.8-2.4) mg/dl Total Bilirubin (0.2-1) mg/dl Direct Bilirubin (0-0.2) mg/dl AST (15-37) U/L ALT (12-78) U/L Alkaline Phosphatase (45-117) U/L Ammonia (11-32) umol/L Troponin I (0-0.045) ng/ml Total Protein (6.4-8.2) gm/dl Albumin (3.4-5.0) gm/dl Globulin (2.5-4.0) gm/dl Albumin/Globulin Ratio (0.9-2) Procalcitonin (0-0.5) ng/ml Urine Color Urine Appearance (Clear) Urine pH (4.5-7.5) Ur Specific [place] (1.000-1.030) Urine Protein (Negative) Urine Glucose (UA) (Negative) Urine Ketones (Negative) Urine Blood (Negative) Urine Nitrite (Negative) Urine Bilirubin (Negative) Urine Urobilinogen (Negative) Ur Leukocyte Esterase (Negative) Urine WBC (Auto) (0-5) /hpf Urine RBC (Auto) (0-4) /hpf U Hyaline Cast (Auto) (0-5) /lpf U Epithel Cells (Auto) (0-5) /lpf Urine Bacteria (Auto) (Negative) Granular Casts (0) /lpf Urine Yeast Nasal Screen MRSA (PCR) Negative (Negative) Blood Type Antibody Screen 11/27/18 11/27/18 11/27/18 Range/Units 22:01 22:01 20:43 WBC (4.8-10.8) K/uL RBC (4.2-5.4) M/uL Hgb (12.0-16.0) g/dL Hct (37-47) % MCV (80-100) fL MCH (25-34) pg MCHC (32-36) g/dL RDW Std Deviation (36.4-46.3) fL RDW Coeff of Eren (11.5-14.5) % Plt Count (130-400) K/uL MPV (7.4-10.4) fL Immature Gran % (Auto) % Neut % (Auto) % Lymph % (Auto) % [place] % (Auto) % Eos % (Auto) % Baso % (Auto) % Immature Gran # (Auto) (0.00-0.02) K/uL Neut # (Auto) (1.4-6.5) K/uL Lymph # (Auto) (1.2-3.4) K/uL [place] # (Auto) (0.11-0.59) K/uL Eos # (Auto) (0-0.5) K/uL Baso # (Auto) (0-0.2) K/uL Absolute Nucleated RBC (0-0) K/uL Nucleated RBC % (auto) % Hypochromasia Poikilocytosis Basophilic Stippling Microcytosis Target Cells PT (9.0-12.0) Seconds INR (0.9-1.1) Specimen Type Sample Site POC pH (7.35-7.45) POC pCO2 (35-46) mmHg POC pO2 (80-95) mmHg POC HCO3 (19-24) mirna/L POC Total CO2 (24-31) mEq/l POC Base Excess (-9-1.8) mirna/L POC ABG O2 Sat (90-95) % Edilberto Test O2 Delivery Device POC FiO2 % Sodium 138 (136-145) mmol/L Potassium 4.4 (3.5-5.1) mmol/L Chloride 104 (98-107) mmol/L Carbon Dioxide 26 (21-32) mmol/L Anion Gap 8.0 (3-11) BUN 20 H (7-18) mg/dl Creatinine 1.45 H (0.6-1.2) mg/dl Est Cr Clr Drug Dosing 23.4 ml/min Est GFR ( Amer) 37.4 Est GFR (Non-Af Amer) 32.3 BUN/Creatinine Ratio 13.8 (10-20) Glucose 125 H (70-99) mg/dl POC Glucose (70-99) Lactate 3.1 H* (0.4-2.0) mmol/L Calcium 8.8 (8.5-10.1) mg/dl Ionized Calcium (1.12-1.32) mmol/L Phosphorus (2.5-4.9) mg/dl Magnesium 2.3 (1.8-2.4) mg/dl Total Bilirubin 1.1 H (0.2-1) mg/dl Direct Bilirubin (0-0.2) mg/dl AST 13 L (15-37) U/L ALT 16 (12-78) U/L Alkaline Phosphatase 77 (45-117) U/L Ammonia < 10.0 L (11-32) umol/L Troponin I < 0.015 (0-0.045) ng/ml Total Protein 7.6 (6.4-8.2) gm/dl Albumin 3.7 (3.4-5.0) gm/dl Globulin 3.9 (2.5-4.0) gm/dl Albumin/Globulin Ratio 1.0 (0.9-2) Procalcitonin (0-0.5) ng/ml Urine Color Urine Appearance (Clear) Urine pH (4.5-7.5) Ur Specific [place] (1.000-1.030) Urine Protein (Negative) Urine Glucose (UA) (Negative) Urine Ketones (Negative) Urine Blood (Negative) Urine Nitrite (Negative) Urine Bilirubin (Negative) Urine Urobilinogen (Negative) Ur Leukocyte Esterase (Negative) Urine WBC (Auto) (0-5) /hpf Urine RBC (Auto) (0-4) /hpf U Hyaline Cast (Auto) (0-5) /lpf U Epithel Cells (Auto) (0-5) /lpf Urine Bacteria (Auto) (Negative) Granular Casts (0) /lpf Urine Yeast Nasal Screen MRSA (PCR) (Negative) Blood Type Antibody Screen 11/27/18 Range/Units 20:43 WBC 17.02 H (4.8-10.8) K/uL RBC 4.43 (4.2-5.4) M/uL Hgb 8.9 L (12.0-16.0) g/dL Hct 27.9 L (37-47) % MCV 63.0 L (80-100) fL MCH 20.1 L (25-34) pg MCHC 31.9 L (32-36) g/dL RDW Std Deviation 37.7 (36.4-46.3) fL RDW Coeff of Eren 16.5 H (11.5-14.5) % Plt Count 180 (130-400) K/uL MPV 10.3 (7.4-10.4) fL Immature Gran % (Auto) 0.4 % Neut % (Auto) 93.5 % Lymph % (Auto) 2.7 % [place] % (Auto) 3.1 % Eos % (Auto) 0.1 % Baso % (Auto) 0.2 % Immature Gran # (Auto) 0.06 H (0.00-0.02) K/uL Neut # (Auto) 15.93 H (1.4-6.5) K/uL Lymph # (Auto) 0.46 L (1.2-3.4) K/uL [place] # (Auto) 0.53 (0.11-0.59) K/uL Eos # (Auto) 0.01 (0-0.5) K/uL Baso # (Auto) 0.03 (0-0.2) K/uL Absolute Nucleated RBC 0.02 H (0-0) K/uL Nucleated RBC % (auto) 0.1 % Hypochromasia Present Poikilocytosis Basophilic Stippling Microcytosis Present Target Cells 1+ PT (9.0-12.0) Seconds INR (0.9-1.1) Specimen Type Sample Site POC pH (7.35-7.45) POC pCO2 (35-46) mmHg POC pO2 (80-95) mmHg POC HCO3 (19-24) mirna/L POC Total CO2 (24-31) mEq/l POC Base Excess (-9-1.8) mirna/L POC ABG O2 Sat (90-95) % Edilberto Test O2 Delivery Device POC FiO2 % Sodium (136-145) mmol/L Potassium (3.5-5.1) mmol/L Chloride (98-107) mmol/L Carbon Dioxide (21-32) mmol/L Anion Gap (3-11) BUN (7-18) mg/dl Creatinine (0.6-1.2) mg/dl Est Cr Clr Drug Dosing ml/min Est GFR ( Amer) Est GFR (Non-Af Amer) BUN/Creatinine Ratio (10-20) Glucose (70-99) mg/dl POC Glucose (70-99) Lactate (0.4-2.0) mmol/L Calcium (8.5-10.1) mg/dl Ionized Calcium (1.12-1.32) mmol/L Phosphorus (2.5-4.9) mg/dl Magnesium (1.8-2.4) mg/dl Total Bilirubin (0.2-1) mg/dl Direct Bilirubin (0-0.2) mg/dl AST (15-37) U/L ALT (12-78) U/L Alkaline Phosphatase (45-117) U/L Ammonia (11-32) umol/L Troponin I (0-0.045) ng/ml Total Protein (6.4-8.2) gm/dl Albumin (3.4-5.0) gm/dl Globulin (2.5-4.0) gm/dl Albumin/Globulin Ratio (0.9-2) Procalcitonin (0-0.5) ng/ml Urine Color Urine Appearance (Clear) Urine pH (4.5-7.5) Ur Specific [place] (1.000-1.030) Urine Protein (Negative) Urine Glucose (UA) (Negative) Urine Ketones (Negative) Urine Blood (Negative) Urine Nitrite (Negative) Urine Bilirubin (Negative) Urine Urobilinogen (Negative) Ur Leukocyte Esterase (Negative) Urine WBC (Auto) (0-5) /hpf Urine RBC (Auto) (0-4) /hpf U Hyaline Cast (Auto) (0-5) /lpf U Epithel Cells (Auto) (0-5) /lpf Urine Bacteria (Auto) (Negative) Granular Casts (0) /lpf Urine Yeast Nasal Screen MRSA (PCR) (Negative) Blood Type Antibody Screen Blood cultures-no growth to date Urine culture-no growth to date PG Care Time/CCT Total # of Minutes Spent Total Time Spent with Patient: Total time spent is greater than 50% in coordination of care (as documented) at patient's floor/unit and/or counseling patient: (1) UTI (urinary tract infection) Hematuria presence: without hematuria Urinary tract infection type: site unspecified Qualified Code(s): N39.0 - Urinary tract infection, site not specified (2) Sepsis Sepsis type: sepsis due to unspecified organism Qualified Code(s): A41.9 - Sepsis, unspecified organism (3) Hypotension Hypotension type: unspecified hypotension type Qualified Code(s): I95.9 - Hypotension, unspecified
[2018-11-28] MEDS ORDERED: CEFEPIME 1,000 MG in SYRINGE 0 ML IV SCH (21:00)
[2018-11-28] MEDS ORDERED: VANCOMYCIN HCL 1,000 MG in SODIUM CHLORIDE 0.9% 250 ML IV STA (21:05)
[2018-11-28] MEDS ORDERED: OLANZAPINE ZYDIS 5 MG ORALLY DIS. TAB PO ONE (22:50)
[2018-11-28] MEDS ORDERED: LORazepam 0.5 MG TAB PO ONE (22:50)
[2018-11-29] MEDS: ALBUT/IPRATROP 3MG/0.5MG NEB 3 ML VIAL NEB SCH ×6 (02:19→23:18)
--- NOTE | 2018-11-29 04:29 | Progress Note ---
Date of Service November 29, 2018 Received page from patient's nurse that the patient's bladder scan was over 580 mL. In brief review of the chart, patient was admitted with sepsis secondary to UTI. Noted bladder prolapse. Concurrent acute renal failure receiving volume resuscitation. Based on the above, elected to place a Shafer catheter. This may help with mo nitoring urine output and volume status. Patient does seem to be at risk for further UTIs, so would defer to the day team if Shafer catheter should remain in place for any prolonged duration. Monica Epstein, PGY3 Overnight call Results & Data Vital Signs (Past 12 Hours) Vital Signs Temp Pulse Pulse Pulse Resp BP BP 11/29/18 03:49 36.5 C 97 H 16 11/28/18 23:22 36.7 C 85 18 149/74 H 11/28/18 21:30 87 11/28/18 20:15 36.8 C 125 H 22 114/76 11/28/18 19:04 85 18 BP Pulse Ox 11/29/18 03:49 180/82 H 92 11/28/18 23:22 92 11/28/18 21:30 11/28/18 20:15 92 11/28/18 19:04 96
[2018-11-29] MEDS: HALOPERIDOL LACTATE 5 MG/ML 1 ML VIAL IM PRN (04:46)
[2018-11-29] MEDS: SODIUM CHLORIDE 0.9% 1000ML 1,000 ML IV SCH (04:47)
[2018-11-29] MEDS ORDERED: ONDANSETRON INJ 2 MG/ML 2 ML VIAL IV PRN (05:44)
[2018-11-29] MEDS: HEPARIN SOD 5,000 UNIT/0.5 ML VIAL SQ SCH ×3 (06:15→22:09)
[2018-11-29] MEDS ORDERED: risperiDONE 0.5 MG TABLET PO PRN (10:07)
--- NOTE | 2018-11-29 10:09 | Hospitalist Progress Note ---
Date of Service November 29, 2018 Assessment & Plan (1) Confusion: This patient is an 87yo C female with history of dementia, paroxysmal SVT, bladder prolapse, LBBB, HTN, and depression who presented with sepsis secondary to UTI, confusion/agitation, and possible aspiration pneumonitis versus pne umonia Acute metabolic encephalopathy-somewhat improved but continues as per family members (2) Sepsis: With encephalopathy, elevated lactate, elevated procalcitonin level, UTI and pneumonia evident on urinalysis and chest x-ray/CT, with tachycardia, hypotension, and tachypnea along with hypoxia. Leukocytosis continues to improve today, remains afebrile. Blood pressures are much improved today Blood cultures with no growth to date, urine culture with mixed organisms Procalcitonin is decreasing but remains elevated -Continue cefepime but can discontinue vancomycin as MRSA swab is negative -Antibiotic coverage for both pulmonary and urinary sources -Change maintenance fluids to D5 half-normal saline at 70 mL's per hour given hypoglycemia -Follow pro calcitonin, CBC in the morning (3) Pneumonitis: With bibasilar infiltrates seen on CT of the chest and profound hypoxia upon admission. She may have a chemical aspiration pneumonitis versus aspiration pneumonia as per my discussion with pulmonology today. Hypoxia remains but patient continues to pull oxygen off her face due to dementia with agitation -Continue cefepime -Continue to monitor and follow chest imaging until resolved -Wean oxygen off as able to (4) Acute respiratory failure with hypoxia: Patient with hypoxia persisting, episodes with saturations in the 60's upon admission which is now somewhat improved. She has been removing medical equipment, BiPAP/high flow NC and facemask. CXR suggestive of pulmonary edema, chest CT with bibasilar pneumonia as above -Continue supplemental O2 as needed to maintain saturations > 94% -Family stated no intubation/mechanical ventilation at first, however, now agree that intubation would be alright if necessary. (5) UTI (urinary tract infection): With abnormal UA and sepsis as above Urine culture now with mixed organisms -Continue cefepime empirically (6) Bladder prolapse: With severe bladder prolapse on examination, is at high risk for recurrent UTIs With urinary retention of 700 mL's-Shafer catheter was now placed on the morning of 11/29 (7) Hypotension: Now improved with volume resuscitation and treatment of sepsis -Restarted home diltiazem especially in the setting of paroxysmal SVT (8) Hypertension: With hypotension upon admission requiring withholding her diltiazem which is now restarted as above (9) ARF (acute renal failure): Baseline creatinine at 1.0, then went up to 1.5 and likely secondary to ATN from sepsis Creatinine now improved to 0.96 with volume resuscitation -Follow BMP in the morning -Renally dose medications -Avoid NSAIDs and other nephrotoxins (10) Anemia: Chronic and thought to be from thalassemia in the past, however is considerably lower than previous baseline around 9. Hemoglobin did go down to 7.7 and may be somewhat hemo-dilutional as it is now back up without receiving any transfusion, hemoglobin today is 8.2 -No need for transfusion at this point -Follow CBC in the morning (11) Cognitive impairment: With secondary delirium in the setting of what sounds like mild-moderate cognitive impairment Family reports a long history of suspected mental health issues with agitation throughout her whole life that was never treated as the patient was distrustful of the medical community and did not seek care -Continue IM Haldol as needed for delirium -Add on standing dose of risperidone 0.5 mg nightly and 0.5 mg dose during the day as needed for agitation -Supportive care -Continue sertraline which is presumably for depression (12) LBBB (left bundle branch block): Chronic (13) PSVT (paroxysmal supraventricular tachycardia): With episodes of 30 to 60 minutes several times throughout the day on 11/29 of SVT in the 140s for the rate -Spontaneously converted each time Doubt that she can tolerate this over the long run Consulted cardiology-appreciate consult -Restart home diltiazem 240 mg p.o. daily but continued to have SVT throughout the day -Begin amiodarone drip and if controls SVT, would start on p.o. amiodarone (14) DVT prophylaxis: Heparin SQ Disposition-moved to PCU for amiodarone drip Had a's 45-minute discussion with the patient's son who is her healthcare power of business attorney and his . Discussed goals of care given her progressing demen tia, inability to care for herself at home, possibility of lack of quality care at home with the current son she is living with. We are all very concerned with her returning home to her current situation. PT/OT consults placed and son is hopeful that she will be placed in a correction Palliative care consultation greatly appreciated Son would like to make her a DO NOT RESUSCITATE but is okay with intubation for isolated respiratory failure Subjective Patient had SVT off and on several times throughout the day for 30 to 60 minutes each episode, rates in the 140s to 150s. Would spontaneously convert each time. She is not able to tell me anything meaningful. Confused and remains agitated at times with staff. Review of Systems Review of Systems: Unobtainable due to cognitive status Physical Exam Constitutional: + thin; not in distress Eyes: PERRL, conjunctivae normal, anicteric sclerae ENMT: external ear and nose normal, oropharynx normal Mouth: + edentulous Neck: trachea midline, no thyromegaly Respiratory: normal respiratory effort, lungs clear to auscultation normal respiratory effort (With nasal cannula in place) Auscultation: + diminished lung sounds (Throughout) and + crackles (Bibasilar); no wheezes Cardiovascular: RRR, no murmur, no edema Rate/Rhythm: regular rate and regular rhythm Heart Sounds: + murmur (3/6 systolic at the LLSB) Extremities: no edema Gastrointestinal (Abdomen): normal bowel sounds, soft, nontender, no hepatosplenomegaly Musculoskeletal: Extremities: extremities normal to inspection; no cyanosis and no clubbing Skin: no rashes, warm and dry Neurologic: moves all extremities and awake; no focal motor deficits Psychiatric: Orientation: alert; + not oriented to place and + not oriented to time Results & Data Vital Signs (Past 12 Hours) Vital Signs Temp Pulse Resp BP BP Pulse Ox 11/29/18 03:49 36.5 C 97 H 16 180/82 H 92 11/28/18 23:22 36.7 C 85 18 149/74 H 92 Laboratory Results 11/29/18 11/29/18 11/29/18 Range/Units 12:21 12:20 11:52 WBC (4.8-10.8) K/uL RBC (4.2-5.4) M/uL Hgb (12.0-16.0) g/dL Hct (37-47) % MCV (80-100) fL MCH (25-34) pg MCHC (32-36) g/dL RDW Std Deviation (36.4-46.3) fL RDW Coeff of Eren (11.5-14.5) % Plt Count (130-400) K/uL Immature Gran % (Auto) % Neut % (Auto) % Lymph % (Auto) % [place] % (Auto) % Eos % (Auto) % Baso % (Auto) % Immature Gran # (Auto) (0.00-0.02) K/uL Neut # (Auto) (1.4-6.5) K/uL Lymph # (Auto) (1.2-3.4) K/uL [place] # (Auto) (0.11-0.59) K/uL Eos # (Auto) (0-0.5) K/uL Baso # (Auto) (0-0.2) K/uL Absolute Nucleated RBC (0-0) K/uL Nucleated RBC % (auto) % Platelet Estimate (Normal) Hypochromasia Microcytosis Target Cells Sodium (136-145) mmol/L Potassium (3.5-5.1) mmol/L Chloride (98-107) mmol/L Carbon Dioxide (21-32) mmol/L Anion Gap (3-11) BUN (7-18) mg/dl Creatinine (0.6-1.2) mg/dl Est Cr Clr Drug Dosing ml/min Est GFR ( Amer) Est GFR (Non-Af Amer) BUN/Creatinine Ratio (10-20) Glucose (70-99) mg/dl POC Glucose 70 67 L* 62 L* (70-99) Calcium (8.5-10.1) mg/dl Total Bilirubin (0.2-1) mg/dl Direct Bilirubin (0-0.2) mg/dl AST (15-37) U/L ALT (12-78) U/L Alkaline Phosphatase (45-117) U/L Total Protein (6.4-8.2) gm/dl Albumin (3.4-5.0) gm/dl Procalcitonin (0-0.5) ng/ml 11/29/18 11/29/18 11/29/18 Range/Units 11:50 09:51 09:51 WBC (4.8-10.8) K/uL RBC (4.2-5.4) M/uL Hgb (12.0-16.0) g/dL Hct (37-47) % MCV (80-100) fL MCH (25-34) pg MCHC (32-36) g/dL RDW Std Deviation (36.4-46.3) fL RDW Coeff of Eren (11.5-14.5) % Plt Count (130-400) K/uL Immature Gran % (Auto) % Neut % (Auto) % Lymph % (Auto) % [place] % (Auto) % Eos % (Auto) % Baso % (Auto) % Immature Gran # (Auto) (0.00-0.02) K/uL Neut # (Auto) (1.4-6.5) K/uL Lymph # (Auto) (1.2-3.4) K/uL [place] # (Auto) (0.11-0.59) K/uL Eos # (Auto) (0-0.5) K/uL Baso # (Auto) (0-0.2) K/uL Absolute Nucleated RBC (0-0) K/uL Nucleated RBC % (auto) % Platelet Estimate (Normal) Hypochromasia Microcytosis Target Cells Sodium 141 (136-145) mmol/L Potassium 4.0 (3.5-5.1) mmol/L Chloride 110 H (98-107) mmol/L Carbon Dioxide 23 (21-32) mmol/L Anion Gap 8.0 (3-11) BUN 22 H (7-18) mg/dl Creatinine 0.96 D (0.6-1.2) mg/dl Est Cr Clr Drug Dosing 37.3 ml/min Est GFR ( Amer) 61.6 Est GFR (Non-Af Amer) 53.2 BUN/Creatinine Ratio 22.4 H (10-20) Glucose 71 (70-99) mg/dl POC Glucose 65 L* (70-99) Calcium 8.3 L D (8.5-10.1) mg/dl Total Bilirubin 0.8 (0.2-1) mg/dl Direct Bilirubin 0.2 (0-0.2) mg/dl AST 33 (15-37) U/L ALT 25 (12-78) U/L Alkaline Phosphatase 87 (45-117) U/L Total Protein 6.8 (6.4-8.2) gm/dl Albumin 3.0 L (3.4-5.0) gm/dl Procalcitonin 2.50 H (0-0.5) ng/ml 11/29/18 11/29/18 Range/Units 09:51 07:42 WBC 12.75 H (4.8-10.8) K/uL RBC 3.98 L (4.2-5.4) M/uL Hgb 8.2 L (12.0-16.0) g/dL Hct 25.2 L (37-47) % MCV 63.3 L (80-100) fL MCH 20.6 L (25-34) pg MCHC 32.5 (32-36) g/dL RDW Std Deviation 38.7 (36.4-46.3) fL RDW Coeff of Eren 16.8 H (11.5-14.5) % Plt Count 138 (130-400) K/uL Immature Gran % (Auto) 0.2 % Neut % (Auto) 86.0 % Lymph % (Auto) 8.6 % [place] % (Auto) 4.9 % Eos % (Auto) 0.2 % Baso % (Auto) 0.1 % Immature Gran # (Auto) 0.03 H (0.00-0.02) K/uL Neut # (Auto) 10.96 H (1.4-6.5) K/uL Lymph # (Auto) 1.10 L (1.2-3.4) K/uL [place] # (Auto) 0.63 H (0.11-0.59) K/uL Eos # (Auto) 0.02 (0-0.5) K/uL Baso # (Auto) 0.01 (0-0.2) K/uL Absolute Nucleated RBC 0.02 H (0-0) K/uL Nucleated RBC % (auto) 0.2 % Platelet Estimate Normal (Normal) Hypochromasia Present Microcytosis Present Target Cells 1+ Sodium (136-145) mmol/L Potassium (3.5-5.1) mmol/L Chloride (98-107) mmol/L Carbon Dioxide (21-32) mmol/L Anion Gap (3-11) BUN (7-18) mg/dl Creatinine (0.6-1.2) mg/dl Est Cr Clr Drug Dosing ml/min Est GFR ( Amer) Est GFR (Non-Af Amer) BUN/Creatinine Ratio (10-20) Glucose (70-99) mg/dl POC Glucose 72 (70-99) Calcium (8.5-10.1) mg/dl Total Bilirubin (0.2-1) mg/dl Direct Bilirubin (0-0.2) mg/dl AST (15-37) U/L ALT (12-78) U/L Alkaline Phosphatase (45-117) U/L Total Protein (6.4-8.2) gm/dl Albumin (3.4-5.0) gm/dl Procalcitonin (0-0.5) ng/ml PG Care Time/CCT Total # of Minutes Spent Total Time Spent with Patient: Total time spent is greater than 50% in coordination of care (as documented) at patient's floor/unit and/or counseling patient: (1) UTI (urinary tract infection) Hematuria presence: without hematuria Urinary tract infection type: site unspecified Qualified Code(s): N39.0 - Urinary tract infection, site not s pecified (2) Sepsis Sepsis type: sepsis due to unspecified organism Qualified Code(s): A41.9 - Sepsis, unspecified organism (3) Hypotension Hypotension type: unspecified hypotension type Qualified Code(s): I95.9 - Hypotension, unspecified
[2018-11-29 10:21] LABS: Mean Corpuscular Hgb Conc 32.5 g/dL (32-36); Nucleated RBC # (auto) 0.02 K/uL (0-0); Nucleated RBC % (auto) 0.2 %
[2018-11-29 10:36] LABS: Hematocrit (blood only) 25.2 % (37-47); Hemoglobin 8.2 g/dL (12.0-16.0); Mean Corpuscular Volume 63.3 fL (80-100); RDW Coefficient of Variation 16.8 % (11.5-14.5); RDW Standard Deviation 38.7 fL (36.4-46.3); Red Blood Count 3.98 M/uL (4.2-5.4); White Blood Count 12.75 K/uL (4.8-10.8)
[2018-11-29 10:45] LABS: Platelet Count 138 K/uL (130-400)
[2018-11-29 10:46] LABS: Basophils # (auto) 0.01 K/uL (0-0.2); Basophils % (auto) 0.1 %; Eosinophils # (auto) 0.02 K/uL (0-0.5); Eosinophils % (auto) 0.2 %; Hypochromasia Present; Immature Granulocytes # (auto) 0.03 K/uL (0.00-0.02); Immature Granulocytes % (auto) 0.2 %; Lymphocytes % (auto) 8.6 %; Microcytosis Present; Monocytes # (auto) 0.63 K/uL (0.11-0.59); Monocytes % (auto) 4.9 %; Neutrophils # (auto) 10.96 K/uL (1.4-6.5); Platelet Estimate Normal (Normal); Target Cells 1+
[2018-11-29 10:55] LABS: BUN Creatinine Ratio 22.4 (10-20); Bilirubin Direct 0.2 mg/dl (0-0.2); Bilirubin,Total 0.8 mg/dl (0.2-1); Calcium 8.3 mg/dl (8.5-10.1); Creatinine Clr Calc Pharmacy 37.3 ml/min; Est GFR (African American) 61.6; Est GFR (Non-African American) 53.2; Total Protein 6.8 gm/dl (6.4-8.2)
[2018-11-29] MEDS: D5W AND 1/2NSS 1,000 ML IV SCH ×2 (12:00→15:24)
[2018-11-29] MEDS ORDERED: DEXTROSE 50% 50 ML SYRINGE IV ONE (12:00)
[2018-11-29] MEDS: dilTIAZem HCL 240 MG CAPCR PO SCH (12:03)
[2018-11-29] MEDS: SERTRALINE HCL 50 MG TABLET PO SCH (12:03)
--- NOTE | 2018-11-29 12:41 | Palliative Care Consultation ---
Date of Consultation November 29, 2018 Assessment & Plan (1) Goals of care, counseling/discussion: -87 year old female patient with PMH dementia, HTN, paroxysmal SVT, CAD, Thalassemia, and others, presented to [facility] with an episode of unresponsiveness. The day prior to arrival, patient was seen in at the [facility] ED and diagnosed with UTI. She was sent home with an abx. Apparently her son who lives with her, Fan, found her the next morning slumped over and minimally responsive. In the ED, patient was hypotensive, WBC 17k, 90% on room air. She received IVF bolus and became hypoxic at 83%. CXR showed mild pulmonary edema. She was placed on oxymask then Bipap for respiratory distress. She was admitted to the ICU with hypoxia and sepsis likely related to UTI. CT chest was done 11/28 which showed bibasilar opacities possibly aspiration pneumonitis/pneumonia. She did improve and is now on 3LNC and was transferred out of ICU. Today 11/29, she did have about an hour of SVT, which spontaneously broke while staff were putting in another IV site. Her family is at bedside. At baseline, patient has significant dementia. She also has behavioral issues with agitation and aggression/combativeness. She lives at home with her son Fan. She has another son, Spencer, who is her POA, and states that his mother can no longer live at home with Fan as her care is becoming too much. Palliative care is consulted to discuss goals of care. -Met with patient, her son/POA Spencer, and Spencer's Alexa. Patient is finally resting with her eyes closed and family requested that she not be woken. Stepped out of room with family to discuss. -Spencer states that patient's dementia and behaviors are quite bad at home. Fan, who lives with patient, has been taking care of patient but he does leave patient at home alone quite often, which concerns the rest of the family. Patient also has two daughters, Savannah and Dary. -At baseline, patient needs help with mostly all ADLs. She is able to ambulate only with assistance and family reports it is getting more difficult. Patient is unable to recognize her youngest daughter, Luba, at times. Patient's memory is poor now, but Spencer states that patient has always struggled with mental health issues. However, she would never seek medical treatment and was never formally diagnosed with anything. Patient is mistrusting of medical billing specialist and would usually throw away the pills that she was prescribed. -From what family describes, patient's baseline FAST score is 6c-6d, indicating moderately severe dementia. Family was really not knowledgeable about the progression of dementia and what to expect in the future. We spent a lot of time discussing the disease and about complications that can arise such as frequent UTIs, pneumonia, aspiration, weakness, poor PO intake, etc. -Most of our discussion was based around Spencer's frustrations with his brother, Fan, and his concern about his mother not returning there. Spencer states that at some point, the [facility] was going to have his mother removed, but for some reason it never happened. -Plan at this time is for patient to go to SNF after hospitalization and likely remain there intermediate designer. We did talk about goals of care and comfort/hospice care for in the future, but family does not seem ready to make those types of decisions yet. -As far as patient's agitation and combativeness, Dr. Lazo did order Risperdal 0.5mg PO QHS as well as another daily PRN dose. Consider Zyprexa as well, especially because it comes in ODT. -Will continue to follow as needed and assist with medical decision making and supportive care. (2) Pneumonitis: (3) Cognitive impairment: (4) UTI (urinary tract infection): Hematuria presence: without hematuria Urinary tract infection type: site unspecified Qualified Code(s): N39.0 - Urinary tract infection, site not specified (5) Sepsis: Sepsis type: sepsis due to unspecified organism Qualified Code(s): A41.9 - Sepsis, unspecified organism History of Present Illness Reason for Consultation: Goals of care Requesting Physician: Dr. Lazo Attending Physician: Bárbara Lazo MD History of Present Illness This 87 year old female patient with PMH dementia, HTN, paroxysmal SVT, CAD, Thalassemia, and others, presented to [facility] with an episode of unresponsiveness. The day prior to arrival, patient was seen in at the [facility] ED and diagnosed with UTI. She was sent home with an abx. Apparently her son who lives with her, Fan, found her the next morning slumped over and minimally responsive. In the ED, patient was hypotensive, WBC 17k, 90% on room air. She received IVF bolus and became hypoxic at 83%. CXR showed mild pulmonary edema. She was placed on oxymask then Bipap for respiratory distress. She was admitted to the ICU with hypoxia and sepsis likely related to UTI. CT chest was done 11/28 which showed bibasilar opacities possibly aspiration pneumonitis/pneumonia. She did improve and is now on 3LNC and was transferred out of ICU. Today 11/29, she did have about an hour of SVT, which spontaneously broke while staff were putting in another IV site. Her family is at bedside. At baseline, patient has significant dementia. She also has behavioral issues with agitation and aggression/combativeness. She lives at home with her son Fan. She has another son, Spencer, who is her POA, and states that his mother can no longer live at home with Fan as her care is becoming too much. Palliative care is consulted to discuss goals of care. Thank you kindly for this consult. I will follow as needed. Allergies Allergy/AdvReac Type Severity Reaction Status Date / Time aspirin Allergy Unknown UNK Verified 11/27/18 21:53 erythromycin base Allergy Unknown UNK Verified 11/27/18 21:53 loratadine Allergy Unknown UNK Verified 11/27/18 21:53 naproxen Allergy Unknown UNK Verified 11/27/18 21:53 Penicillins Allergy Unknown UNK Verified 11/27/18 21:53 Sulfa (Sulfonamide Allergy Unknown UNK Verified 11/27/18 21:54 Antibiotics) Home Medications Home Medications Medication Instructions Recorded Confirmed Type diltiazem HCl 240 mg PO DAILY 06/22/18 11/27/18 History nitroglycerin [Nitrostat] 0.4 mg SUBLINGUAL .PRN PRN 06/22/18 11/27/18 History ibuprofen 400 mg PO BID PRN 11/27/18 11/27/18 History sertraline 50 mg PO DAILY 11/27/18 11/27/18 History Patient History Medical History Hypertension (Chronic) Atrial fibrillation (Chronic) CAD (coronary artery disease) (Chronic) Bladder prolapse Dementia Wears dentures (Chronic) Surgical History History of cholecystectomy History of hemorrhoidectomy Social History Preferred Language: Sami Communication Ability: Unable Current Living Situation: Family Feels Safe at Home: Yes Smoking Status: Unknown if ever smoked Hx Alcohol Use: No Hx Substance Use: No Review of Systems Review of Systems: unable to obtain ROS due to patient sleeping and family request to not wake her. Physical Exam Constitutional: + ill appearing and + frail appearing Neck: normal visual inspection Respiratory: normal respiratory effort; no respiratory distress Cardiovascular: RRR, no murmur, no edema Neurologic: + confused (confused at baseline per family and record); + not awake (asleep during visit) Results & Data Vital Signs (Past 12 Hours) Vital Signs Temp Pulse Pulse Resp BP Pulse Ox 11/29/18 11:25 87 11/29/18 10:16 36.5 C 98 H 16 119/68 92 11/29/18 03:49 36.5 C 97 H 16 180/82 H 92 PG Care Time/CCT Total # of Minutes Spent Total Time Spent with Patient: Total time spent is greater than 50% in coordination of care (as documented) at patient's floor/unit and/or counseling patient: Prolonged Care Time Prolonged Care Time: Yes Total Prolonged Care Time: 35 105 Time Spent Midlevel 105 minutes with >50% of time spent at bedside with patient and family discussing condition and GOC.
[2018-11-29] MEDS: CEFEPIME 2,000 MG in SYRINGE 7.5 ML IV SCH (14:02)
--- NOTE | 2018-11-29 14:07 | Cardiology Consultation ---
Date of Consultation November 29, 2018 Assessment & Plan (1) PSVT (paroxysmal supraventricular tachycardia): She has a history of some type of atrial arrhythmia, possibly only SVT although possibly atrial fibrillation. To my knowledge all we have documented is some type of SVT at a rate of 130 bpm, this was identified 3 years ago and is present again today. I think it is likely a reentrant type of SVT. That could potentially be treated with ablation but given the relatively slow heart rate and the patient's comorbidities I do not think that is necessary or indicated. I would like to continue to treat it pharmacologically, she had been on diltiazem and I would resume that medication. If that does not work we can consider other things but if she remains unaware of the arrhythmia and it does not cause a problem if she has it now and then for brief periods of time I would not move on to more invasive treatments. (2) LBBB (left bundle branch block): She has long-standing left bundle branch block but I do not think is had evidence of heart block. I would continue to observe but would not treat this specifically. I am going to get another twelve-lead electrocardiogram with her in sinus rhythm. History of Present Illness Reason for Consultation: SVT Attending Physician: Bárbara Lazo MD History of Present Illness This is an 87-year-old woman who I saw 3 years ago for SVT. She carried a diagnosis of atrial fibrillation at the time, although not sure how it was made and I suspect that may have been her SVT not truly atrial fibrillation. She also has a history of a left bundle branch block and during her hospitalization in December 2015 was having recurrent SVT at around 130 bpm which was consistent but not diagnostic of AV vane reentry. Due to the relatively low heart rate and her comorbidities it was decided to treat her conservatively with diltiazem. It is difficult to know how successful control of her arrhythmia was due to her mental status. She was admitted on this occasion with hypotension probably due to sepsis, her diltiazem was held and then she developed a similar SVT this morning (it is a left bundle branch block pattern similar to her baseline with no evidence of atrial activity on telemetry). We were in the process of giving adenosine for termination after about 1 hour when she spontaneously converted to sinus rhythm. It is a very regular tachycardia and not likely to be atrial fibrillation, atrial flutter is possible that flutter waves are not obvious on telemetry and a twelve-lead electrocardiogram was not done before termination of the arrhythmia. The patient is a very poor historian and I cannot obtain history from her. She appears to have significant dementia. She is not very cooperative but does not appear to be in distress currently. Allergies Allergy/AdvReac Type Severity Reaction Status Date / Time aspirin Allergy Unknown UNK Verified 11/27/18 21:53 erythromycin base Allergy Unknown UNK Verified 11/27/18 21:53 loratadine Allergy Unknown UNK Verified 11/27/18 21:53 naproxen Allergy Unknown UNK Verified 11/27/18 21:53 Penicillins Allergy Unknown UNK Verified 11/27/18 21:53 Sulfa (Sulfonamide Allergy Unknown UNK Verified 11/27/18 21:54 Antibiotics) Home Medications Home Medications Medication Instructions Recorded Confirmed Type diltiazem HCl 240 mg PO DAILY 06/22/18 11/27/18 History nitroglycerin [Nitrostat] 0.4 mg SUBLINGUAL .PRN PRN 06/22/18 11/27/18 History ibuprofen 400 mg PO BID PRN 11/27/18 11/27/18 History sertraline 50 mg PO DAILY 11/27/18 11/27/18 History Patient History Medical History Hypertension (Chronic) Atrial fibrillation (Chronic) CAD (coronary artery disease) (Chronic) Bladder prolapse Dementia Wears dentures (Chronic) Surgical History History of cholecystectomy History of hemorrhoidectomy Family History Other No pertinent family history Social History Preferred Language: Greek Communication Ability: Unable Current Living Situation: Family Feels Safe at Home: Yes Smoking Status: Unknown if ever smoked Hx Alcohol Use: No Hx Substance Use: No Review of Systems Review of Systems: Unobtainable due to mental health condition Physical Exam Physical Exam: The exam was deferred as the patient was agitated and did not want me to examine her. She is moving all 4 extremities. Results & Data Vital Signs (Past 12 Hours) Vital Signs Temp Pulse Pulse Resp BP Pulse Ox 11/29/18 11:25 87 11/29/18 10:16 36.5 C 98 H 16 119/68 92 11/29/18 03:49 36.5 C 97 H 16 180/82 H 92 Diagnostic Findings Her presenting electrocardiogram shows what is likely junctional rhythm with a left bundle branch block pattern. Atrial activity is not obvious. Is only 12- lead electrocardiogram she has had thus far. Telemetry: Predominantly sinus rhythm I believe up until going into supraventricular tachycardia at about 130 bpm. She remained in that for about 1 hour before spontaneously converting back to sinus rhythm.
[2018-11-29] MEDS ORDERED: AMIODARONE IV BOLUS / DRIP IV STA (17:39)
[2018-11-29] MEDS ORDERED: AMIODARONE / D5W 150 MG/100 ML BAG IV STA (17:55)
[2018-11-29] MEDS ORDERED: AMIODARONE / D5W 360 MG/200 ML BAG IV SCH (18:05)
[2018-11-29] MEDS ORDERED: risperiDONE 0.5 MG TABLET PO SCH (21:00)
[2018-11-30] MEDS: AMIODARONE / D5W 360 MG/200 ML BAG IV SCH ×2 (01:40→13:26)
[2018-11-30] MEDS: ALBUT/IPRATROP 3MG/0.5MG NEB 3 ML VIAL NEB SCH ×6 (03:41→22:59)
[2018-11-30] MEDS: D5W AND 1/2NSS 1,000 ML IV SCH ×2 (05:41→19:34)
[2018-11-30] MEDS: HEPARIN SOD 5,000 UNIT/0.5 ML VIAL SQ SCH ×3 (05:42→22:02)
[2018-11-30 05:56] LABS: Basophils # (auto) 0.01 K/uL (0-0.2); Basophils % (auto) 0.1 %; Eosinophils # (auto) 0.13 K/uL (0-0.5); Eosinophils % (auto) 1.6 %; Hemoglobin 7.6 g/dL (12.0-16.0); Immature Granulocytes # (auto) 0.02 K/uL (0.00-0.02); Immature Granulocytes % (auto) 0.2 %; Lymphocytes # (auto) 1.29 K/uL (1.2-3.4); Lymphocytes % (auto) 15.6 %; Mean Corpuscular Hgb Conc 31.7 g/dL (32-36); Mean Corpuscular Volume 63.5 fL (80-100); Mean Platelet Volume 9.6 fL (7.4-10.4); Monocytes # (auto) 0.53 K/uL (0.11-0.59); Monocytes % (auto) 6.4 %; Neutrophils # (auto) 6.28 K/uL (1.4-6.5); Neutrophils % (auto) 76.1 %; Platelet Count 156 K/uL (130-400); RDW Coefficient of Variation 16.5 % (11.5-14.5); RDW Standard Deviation 38.6 fL (36.4-46.3); Red Blood Count 3.78 M/uL (4.2-5.4); White Blood Count 8.26 K/uL (4.8-10.8)
[2018-11-30 06:26] LABS: Basophilic Stippling 1+; Hypochromasia Present; Polychromasia 1+
[2018-11-30 06:37] LABS: Albumin Level 2.8 gm/dl (3.4-5.0); BUN Creatinine Ratio 14.4 (10-20); Creatinine Clr Calc Pharmacy 42.8 ml/min; Est GFR (African American) 76.8; Est GFR (Non-African American) 66.3; Potassium 3.6 mmol/L (3.5-5.1)
[2018-11-30 06:44] LABS: Bilirubin Direct 0.2 mg/dl (0-0.2); Bilirubin,Total 0.7 mg/dl (0.2-1); Total Protein 6.6 gm/dl (6.4-8.2)
[2018-11-30] MEDS: HALOPERIDOL LACTATE 5 MG/ML 1 ML VIAL IM PRN ×2 (07:50→22:43)
[2018-11-30] MEDS: SERTRALINE HCL 50 MG TABLET PO SCH (10:01)
[2018-11-30] MEDS: dilTIAZem HCL 240 MG CAPCR PO SCH (10:01)
[2018-11-30] MEDS: CEFEPIME 2,000 MG in SYRINGE 7.5 ML IV SCH (13:28)
--- NOTE | 2018-11-30 17:51 | Hospitalist Progress Note ---
Date of Service November 30, 2018 Assessment & Plan (1) Confusion: This patient is an 87yo C female with history of dementia, paroxysmal SVT, bladder prolapse, LBBB, HTN, and depression who presented with sepsis secondary to UTI, confusion/agitation, and possible aspiration pneumonitis versus pne umonia Acute metabolic encephalopathy-somewhat improved but continues as per family members (2) Sepsis: With encephalopathy, elevated lactate, elevated procalcitonin level, UTI and pneumonia evident on urinalysis and chest x-ray/CT, with tachycardia, hypotension, and tachypnea along with hypoxia. Leukocytosis is now resolved, remains afebrile. Blood pressures are normal now Blood cultures remain with no growth to date, urine culture with mixed organisms Procalcitonin is decreased but remains elevated -Continue cefepime and have since discontinued vancomycin as MRSA swab is negative -continue Antibiotic coverage for both pulmonary and urinary sources -continue maintenance fluids at D5 half-normal saline at 70 mL's per hour given previous hypoglycemia and poor po intake -Follow pro calcitonin, CBC in the morning (3) Pneumonitis: With bibasilar infiltrates seen on CT of the chest and profound hypoxia upon admission. She may have a chemical aspiration pneumonitis versus aspiration pneumonia as per my discussion with pulmonology Hypoxia remains at times into the 60s, but patient continues to pull oxygen off her face due to dementia with agitation -Continue cefepime x 7 day course and/or switch to Levaquin if reliably taking pills -Continue to monitor and follow chest imaging until resolved -Wean oxygen off as able to-currently on 5LNC and requiring sedation to keep O2 on her face (4) Acute respiratory failure with hypoxia: Patient with hypoxia persisting, episodes with saturations in the 60's at times without O2 when she removes it. She has been removing medical equipment, CXR suggestive of pulmonary edema, chest CT with bibasilar pneumonia as above -Continue supplemental O2 as needed to maintain saturations > 94% -Family stated no intubation/mechanical ventilation at first, however, now agree that intubation would be alright if necessary. (5) UTI (urinary tract infection): With abnormal UA and sepsis as above Urine culture now with mixed organisms -Continue cefepime empirically and convert to levaquin po when taking po reliably (6) Bladder prolapse: With severe bladder prolapse on examination, is at high risk for recurrent UTIs With urinary retention of 700 mL's-Shafer catheter was now placed on the morning of 11/29 (7) Hypotension: Now improved with volume resuscitation and treatment of sepsis -Restarted home diltiazem especially in the setting of paroxysmal SVT (8) Hypertension: With hypotension upon admission requiring withholding her diltiazem which is now restarted as above (9) ARF (acute renal failure): Baseline creatinine at 1.0, then went up to 1.5 and likely secondary to ATN from sepsis Creatinine now improved to 0.80 with volume resuscitation -Follow BMP in the morning -Renally dose medications -Avoid NSAIDs and other nephrotoxins (10) Anemia: Chronic and thought to be from thalassemia in the past, however is considerably lower than previous baseline around 9. Hemoglobin did go down to 7.6 and fairly stable since admission No evidence of bleeding -No need for transfusion at this point -Follow CBC in the morning -check Fe studies in the AM as could have coinciding Fe deficiency, B12, folate (11) Cognitive impairment: With secondary delirium in the setting of what sounds like mild-moderate cognitive impairment Family reports a long history of suspected mental health issues with agitation throughout her whole life that was never treated as the patient was distrustful of the medical community and did not seek care -Continue IM Haldol as needed for delirium -Added on standing dose of risperidone 0.5 mg nightly and will make 0.5 mg dose qAM a standing dose -Supportive care -Continue sertraline which is presumably for depression (12) LBBB (left bundle branch block): Chronic (13) PSVT (paroxysmal supraventricular tachycardia): With episodes of 30 to 60 minutes several times throughout the day on 11/29 of SVT in the 140s for the rate -Spontaneously converted each time Now remains out of SVT since starting amiodarone gtt Doubt that she can tolerate this over the long run Consulted cardiology-appreciate consult -continue diltiazem 240 mg p.o. daily -continue amiodarone drip and will convert to p.o. amiodarone tomorrow (14) DVT prophylaxis: Heparin SQ Disposition-continued PCU stay Her son Spencer is her healthcare power of match up worker. Discussed goals of care on the day after admission given her progressing dementia, inability to care for herself at home, possibility of lack of quality care at home with the current son she is living with. We are all very concerned with her returning home to her current situation. PT/OT consults placed and son is hopeful that she will be placed in a halfway Palliative care consultation greatly appreciated Son would like to make her a DO NOT RESUSCITATE but is okay with intubation for isolated respiratory failure Subjective Pt was quite agitated this AM and kept taking her O2 off and desatting to the 60s. She was given IM Haldol and has been less agitated and resting since then. She did wake up to eat lunch today. When I saw her she was resting and when I went to adjust her NC on her face, she woke up and started yelling "no no no!" and trying to bite myself and the OPHTHALMIC MEDICAL ASSISTANT. Tele with NSR, IVCD, rates 70s-80s, no further SVT since yesterday evening Review of Systems Review of Systems: Unobtainable due to cognitive status Physical Exam Constitutional: + thin; not in distress Eyes: PERRL, conjunctivae normal, anicteric sclerae ENMT: external ear and nose normal, oropharynx normal Mouth: + edentulous Neck: trachea midline, no thyromegaly Respiratory: normal respiratory effort (With nasal cannula in place) Auscultation: + diminished lung sounds (Throughout) Cardiovascular: RRR, no murmur, no edema Rate/Rhythm: regular rate and regular rhythm Heart Sounds: + murmur (3/6 systolic at the LLSB) Extremities: no edema Musculoskeletal: Extremities: extremities normal to inspection; no cyanosis and no clubbing Skin: no rashes, warm and dry Neurologic: moves all extremities; no focal motor deficits Results & Data Vital Signs (Past 12 Hours) Vital Signs Temp Pulse Resp BP Pulse Ox 11/30/18 15:49 70 16 90 11/30/18 13:48 36.5 C 74 16 149/74 H 91 11/30/18 11:44 70 20 87 L 11/30/18 07:29 75 20 60 L 11/30/18 06:03 36.8 C 80 23 134/67 69 L Laboratory Results 11/30/18 11/30/18 11/30/18 Range/Units 11:00 05:40 05:40 WBC 8.26 (4.8-10.8) K/uL RBC 3.78 L (4.2-5.4) M/uL Hgb 7.6 L (12.0-16.0) g/dL Hct 24.0 L (37-47) % MCV 63.5 L (80-100) fL MCH 20.1 L (25-34) pg MCHC 31.7 L (32-36) g/dL RDW Std Deviation 38.6 (36.4-46.3) fL RDW Coeff of Eren 16.5 H (11.5-14.5) % Plt Count 156 (130-400) K/uL MPV 9.6 (7.4-10.4) fL Immature Gran % (Auto) 0.2 % Neut % (Auto) 76.1 % Lymph % (Auto) 15.6 % Lumpkin % (Auto) 6.4 % Eos % (Auto) 1.6 % Baso % (Auto) 0.1 % Immature Gran # (Auto) 0.02 (0.00-0.02) K/uL Neut # (Auto) 6.28 (1.4-6.5) K/uL Lymph # (Auto) 1.29 (1.2-3.4) K/uL [place]kin # (Auto) 0.53 (0.11-0.59) K/uL Eos # (Auto) 0.13 (0-0.5) K/uL Baso # (Auto) 0.01 (0-0.2) K/uL Polychromasia 1+ Hypochromasia Present Basophilic Stippling 1+ Sodium 140 (136-145) mmol/L Potassium 3.6 (3.5-5.1) mmol/L Chloride 107 (98-107) mmol/L Carbon Dioxide 28 (21-32) mmol/L Anion Gap 5.0 (3-11) BUN 12 (7-18) mg/dl Creatinine 0.80 (0.6-1.2) mg/dl Est Cr Clr Drug Dosing 42.8 ml/min Est GFR ( Amer) 76.8 Est GFR (Non-Af Amer) 66.3 BUN/Creatinine Ratio 14.4 (10-20) Glucose 86 (70-99) mg/dl Calcium 8.0 L (8.5-10.1) mg/dl Total Bilirubin 0.7 (0.2-1) mg/dl Direct Bilirubin 0.2 (0-0.2) mg/dl AST 24 (15-37) U/L ALT 22 (12-78) U/L Alkaline Phosphatase 82 (45-117) U/L Total Protein 6.6 (6.4-8.2) gm/dl Albumin 2.8 L (3.4-5.0) gm/dl Procalcitonin 1.21 H (0-0.5) ng/ml PG Care Time/CCT Total # of Minutes Spent Total Time Spent with Patient: Total time spent is greater than 50% in coordination of care (as documented) at patient's floor/unit and/or counseling patient: (1) Sepsis Sepsis type: sepsis due to unspecified organism Qualified Code(s): A41.9 - Sepsis, unspecified organism (2) UTI (urinary tract infection) Hematuria presence: without hematuria Urinary tract infection type: site unspecified Qualified Code(s): N39.0 - Urinary tract infection, site not specified (3) Hypotension Hypotension type: unspecified hypotension type Qualified Code(s): I95.9 - Hypotension, unspecified
[2018-11-30] MEDS: risperiDONE 0.5 MG TABLET PO SCH ×2 (22:02→22:36)
[2018-12-01] MEDS: AMIODARONE / D5W 360 MG/200 ML BAG IV SCH ×2 (01:03→13:34)
[2018-12-01] MEDS: ALBUT/IPRATROP 3MG/0.5MG NEB 3 ML VIAL NEB SCH ×5 (04:17→22:44)
[2018-12-01] MEDS: HEPARIN SOD 5,000 UNIT/0.5 ML VIAL SQ SCH ×3 (06:13→14:16)
[2018-12-01 06:44] LABS: Mean Corpuscular Hgb Conc 32.2 g/dL (32-36)
[2018-12-01 06:51] LABS: Hematocrit (blood only) 25.5 % (37-47); Hemoglobin 8.2 g/dL (12.0-16.0); Mean Corpuscular Volume 62.5 fL (80-100); RDW Coefficient of Variation 16.3 % (11.5-14.5); RDW Standard Deviation 37.3 fL (36.4-46.3); Red Blood Count 4.08 M/uL (4.2-5.4)
[2018-12-01 07:21] LABS: Albumin Level 2.8 gm/dl (3.4-5.0); BUN Creatinine Ratio 8.3 (10-20); Calcium 8.2 mg/dl (8.5-10.1); Creatinine Clr Calc Pharmacy 47.1 ml/min; Est GFR (African American) 81.7; Est GFR (Non-African American) 70.5; Magnesium 1.9 mg/dl (1.8-2.4)
[2018-12-01 07:22] LABS: Platelet Count 151 K/uL (130-400)
[2018-12-01 07:23] LABS: Basophils # (auto) 0.03 K/uL (0-0.2); Basophils % (auto) 0.5 %; Eosinophils % (auto) 3.4 %; Immature Granulocytes # (auto) 0.01 K/uL (0.00-0.02); Immature Granulocytes % (auto) 0.2 %; Lymphocytes # (auto) 1.26 K/uL (1.2-3.4); Lymphocytes % (auto) 21.6 %; Microcytosis Present; Monocytes # (auto) 0.42 K/uL (0.11-0.59); Monocytes % (auto) 7.2 %; Neutrophils % (auto) 67.1 %; Platelet Estimate Normal (Normal); Target Cells 1+
[2018-12-01 07:25] LABS: Albumin Globulin Ratio 0.7 (0.9-2); Bilirubin,Total 0.7 mg/dl (0.2-1); Ferritin 135.1 ng/ml (8-388); Globulin 3.9 gm/dl (2.5-4.0); Total Protein 6.7 gm/dl (6.4-8.2)
[2018-12-01] MEDS: risperiDONE 0.5 MG TABLET PO SCH (07:33)
[2018-12-01] MEDS: dilTIAZem HCL 240 MG CAPCR PO SCH (07:34)
[2018-12-01] MEDS: SERTRALINE HCL 50 MG TABLET PO SCH (07:34)
[2018-12-01 08:05] LABS: Folate (Folic Acid) 5.42 ng/ml (>5.38)
--- NOTE | 2018-12-01 09:26 | Cardiology Progress Note ---
Date of Service December 01, 2018 Assessment & Plan (1) PSVT (paroxysmal supraventricular tachycardia): She has a history of some type of atrial arrhythmia, possibly only SVT although possibly atrial fibrillation. To my knowledge all we have documented is some type of SVT at a rate of 130 bpm, this was identified 3 years ago and is present again this admission. I think it is likely a reentrant type of SVT. That could potentially be treated with ablation but given the relatively slow heart rate and the patient's comorbidities I do not think that is necessary or indicated. I would like to continue to treat it pharmacologically, she had been on diltiazem but here that did not seem to be effective, possibly in part to her being ill and probably having a high catecholamine level. Amiodarone does seem to be working well and perhaps that is not a bad drug for her to be on in the future. I will plan on switching to oral, I will start oral today but continue the intravenous overnight. (2) LBBB (left bundle branch block): She has long-standing left bundle branch block but I do not think has had evidence of heart block. I would continue to observe but would not treat this specifically. Subjective She is in much better spirits today than last time I saw her, she is much more cooperative. She has no cardiovascular complaints and tells me that she wants to go home. Physical Exam Physical Exam: Constitutional: Alert, cooperative and in no distress. Pulmonary: Clear to auscultation bilaterally. Cardiac: Regular rhythm with no murmur, gallop or rub. Abdomen: Soft, nontender with normal bowel sounds. Extremities: No edema. Skin: No rash, ecchymoses or petechiae. Results & Data Vital Signs (Past 12 Hours) Vital Signs Temp Pulse Pulse Pulse Resp BP BP 12/01/18 06:51 36.6 C 66 22 144/74 H 12/01/18 06:19 66 12/01/18 04:17 66 18 12/01/18 03:45 36.7 C 66 17 163/71 H 11/30/18 23:43 67 11/30/18 22:36 37.1 C 70 18 135/69 Pulse Ox 12/01/18 06:51 92 12/01/18 06:19 12/01/18 04:17 94 12/01/18 03:45 92 11/30/18 23:43 11/30/18 22:36 92 Diagnostic Findings Telemetry: Review of telemetry shows SVT on November 29, 2018, resolution of this with initiation of amiodarone. Heart rate well controlled in sinus rhythm in the 60s and 70s predominantly.
[2018-12-01] MEDS ORDERED: POTASSIUM CHLORIDE 20 MEQ TABCR PO STA (09:28)
[2018-12-01] MEDS ORDERED: MAGNESIUM SULFATE / D5W 1 GM/100 ML BAG IV ONE (10:00)
[2018-12-01] MEDS ORDERED: IRON SUCROSE 100 MG in 0.9 % SODIUM CHLORIDE 100 ML IV SCH (10:00)
[2018-12-01] MEDS: POTASSIUM CHLORIDE / WTR 10 MEQ/100 ML PLCT IV SCH ×4 (11:06→15:23)
[2018-12-01] MEDS: FOLIC ACID 1 MG TAB PO SCH (11:06)
[2018-12-01] MEDS: AMIODARONE 200 MG TAB PO SCH ×2 (11:06→20:02)
--- NOTE | 2018-12-01 11:08 | Palliative Care Progress Note ---
Date of Service December 01, 2018 Assessment & Plan (1) Goals of care, counseling/discussion: -Patient is more awake today, oriented to person only. easily becomes agitated and angry. Remains a 1:1 for safety at this time. -Was transferred to PCU for PSVT, cardiology and hospitalist are managing. -With her frailty, dementia, and acute/chronic medical problems, long-term prognosis is poor. I did begin to broach this subject with family on 11/29, but they were not prepared to make any sort of decisions on medical goals of care at that time. Plan was to continue treating medically and see if patient is going to improve. Son/POShaniqua's main concern is that patient does not return to her home with her other son Fan. Referrals have been made to several SNFs. -Patient continues to have issues with agitation and combativeness. She has been responding well to IM Haldol per documentation, but that is of course not ideal to continue long-term. Haldol can be given sublingually/buccally if it is crushed and slurried in a small amount of liquid. Consider converting to Haldol 2mg PO/SL TID PRN agitation. -Patient denies any other pain. -Palliative care will continue to follow as needed. (2) Pneumonitis: (3) Cognitive impairment: (4) UTI (urinary tract infection): (5) Sepsis: Subjective Patient was transferred to PCU for PSVT. She is awake and more calm today, but does still very easily become agitated and angry if she is asked too many que stions. No family at bedside. Review of Systems Review of Systems: Denies pain, SOB, N/V. Physical Exam Constitutional: + ill appearing and + frail appearing Neck: normal visual inspection Respiratory: normal respiratory effort; no respiratory distress Auscultation: + diminished lung sounds Cardiovascular: RRR, no murmur, no edema Gastrointestinal (Abdomen): Inspection/Auscultation: abdomen normal to inspection and normal bowel sounds; abdomen not distended Percussion/Palpation: abdomen soft; abdomen nontender Neurologic: awake and + confused Psychiatric: Orientation: alert and oriented to person; + not oriented to place and + not oriented to time Affect: + irritable affect and + angry affect Insight: + poor insight Results & Data Vital Signs (Past 12 Hours) Vital Signs Temp Pulse Pulse Resp BP Pulse Ox 12/01/18 10:59 36.2 C L 63 20 131/63 90 12/01/18 06:51 36.6 C 66 22 144/74 H 92 12/01/18 06:19 66 12/01/18 04:17 66 18 94 12/01/18 03:45 36.7 C 66 17 163/71 H 92 11/30/18 23:43 67 Supervising Physician Co-Signing Physician Notes Chart reviewed, patient seen and examined-patient's 2 daughters at bedside Collaborated with EDGARDO Salazar as well as attending physician PE: Patient appears comfortable, no acute distress HEENT: EOMI, hearing within normal limits Respiratory: Diminished breath sounds, unlabored-patient keeps removing O2-sats 84% on room air CV: Regular rate, no edema Abdomen: Soft, nontender, not distended Extremities: Full range of motion Neuro: Positive cognitive deficits, processing difficulty Psych: Behavioral outbursts Agree with above note, assessment and plan as per EDGARDO Salazar. Discu ssed titrating Risperdal as needed with attending physician. Patient's CODE STATUS is conditional intubation only. Will continue to follow and assist family with medical decision making. PG Care Time/CCT Total # of Minutes Spent Total Time Spent with Patient: Total time spent is greater than 50% in coordination of care (as documented) at patient's floor/unit and/or counseling patient: Time Spent Midlevel 25 minutes with >50% of the time spent at bedside with patient discussing condition and POC. Attending Spent 20 minutes in addition to the 25 minutes spent by EDGARDO Ralph with greater than 50% of the time spent at bedside assessing patient and speaking with family. (1) UTI (urinary tract infection) Hematuria presence: without hematuria Urinary tract infection type: site unspecified Qualified Code(s): N39.0 - Urinary tract infection, site not specified (2) Sepsis Sepsis type: sepsis due to unspecified organism Qualified Code(s): A41.9 - Sepsis, unspecified organism
[2018-12-01] MEDS: D5W AND 1/2NSS 1,000 ML IV SCH (11:18)
[2018-12-01] MEDS: CEFEPIME 2,000 MG in SYRINGE 7.5 ML IV SCH (14:15)
[2018-12-01] MEDS: HALOPERIDOL LACTATE 5 MG/ML 1 ML VIAL IM PRN (14:38)
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
[2018-12-01] MEDS ORDERED: ENOXAPARIN INJ 40 MG/0.4 ML SYR SQ SCH (18:00)
[2018-12-01] MEDS: ENOXAPARIN INJ 40 MG/0.4 ML SYR SQ SCH (20:00)
[2018-12-01] MEDS: risperiDONE 1 MG TABLET PO SCH (20:02)
[2018-12-02] MEDS: ALBUT/IPRATROP 3MG/0.5MG NEB 3 ML VIAL NEB SCH ×7 (00:02→23:04)
[2018-12-02] MEDS: AMIODARONE / D5W 360 MG/200 ML BAG IV SCH (01:27)
[2018-12-02] MEDS: D5W AND 1/2NSS 1,000 ML IV SCH ×2 (01:28→16:02)
[2018-12-02] MEDS: HALOPERIDOL LACTATE 5 MG/ML 1 ML VIAL IM PRN ×2 (03:26→21:42)
[2018-12-02] MEDS: AMIODARONE 200 MG TAB PO SCH ×2 (09:04→21:30)
[2018-12-02] MEDS: risperiDONE 1 MG TABLET PO SCH ×2 (09:04→21:30)
[2018-12-02] MEDS: FOLIC ACID 1 MG TAB PO SCH (09:04)
[2018-12-02] MEDS: dilTIAZem HCL 240 MG CAPCR PO SCH (09:05)
[2018-12-02] MEDS: SERTRALINE HCL 50 MG TABLET PO SCH (09:05)
--- NOTE | 2018-12-02 14:51 | Hospitalist Progress Note ---
Date of Service December 02, 2018 Assessment & Plan (1) Confusion: This patient is an 87yo C female with history of dementia, paroxysmal SVT, bladder prolapse, LBBB, HTN, and depression who presented with sepsis secondary to UTI, confusion/agitation, and possible aspiration pneumonitis versus pne umonia Acute metabolic encephalopathy-somewhat improved but continues as per family members more than her baseline along with agitation which is fairly chronic for her (2) Sepsis: With encephalopathy, elevated lactate, elevated procalcitonin level, UTI and pneumonia evident on urinalysis and chest x-ray/CT, with tachycardia, hypotension, and tachypnea along with hypoxia. Leukocytosis is now resolved, remains afebrile. Blood pressures are normal now Blood cultures remain with no growth to date, urine culture with mixed organisms Procalcitonin decreased almost back to 0 -Continue cefepime-today is day #5 -Have since discontinued vancomycin that was given initially as MRSA swab is negative -continue Antibiotic coverage for both pulmonary and urinary sources -Will continue maintenance fluids at D5 half-normal saline at 70 mL's per hour given previous hypoglycemia and minimal po intake -No further labs as this causes further agitation (3) Pneumonitis: With bibasilar infiltrates seen on CT of the chest and profound hypoxia upon admission. She may have a chemical aspiration pneumonitis versus aspira tion pneumonia as per my discussion with pulmonology Hypoxia remains when she continues to pull oxygen off her face due to dementia with agitation She is able to maintain a pulse ox in the low 90s when on 5 L O2 via oxygen mask Her son reports that she was a heavy smoker for over 40 years and likely has a COPD component as well -Continue cefepime x 7 day course and/or switch to p.o. Levaquin if reliably taking pills-perhaps tomorrow -Continue to monitor and follow chest imaging until resolved -Wean oxygen off as able to-currently on 5LNC and requiring sedation to keep O2 on her face -Continue albuterol nebulizers scheduled every 4 hours -No need for steroids at this point as there is no wheezing (4) Acute respiratory failure with hypoxia: As above CXR suggestive of pulmonary edema, chest CT with bibasilar pneumonia as above -Continue supplemental O2 as needed to maintain saturations > 90% (5) UTI (urinary tract infection): With abnormal UA and sepsis as above Urine culture now with mixed organisms -Continue cefepime empirically and convert to levaquin po when taking po reliably (6) Bladder prolapse: With severe bladder prolapse on examination, is at high risk for recurrent UTIs With urinary retention of 700 mL's-Shafer catheter was now placed on the morning of 11/29-would likely maintain Shafer catheter upon discharge (7) Hypotension: Now improved with volume resuscitation and treatment of sepsis -Have since restarted home diltiazem especially in the setting of paroxysmal SVT (8) Hypertension: With hypotension upon admission requiring withholding her diltiazem which is now restarted as above (9) ARF (acute renal failure): Baseline creatinine at 1.0, then went up to 1.5 and likely secondary to ATN from sepsis Creatinine now improved to 0.76 with volume resuscitation -Renally dose medications -Avoid NSAIDs and other nephrotoxins -Will not check further labs as she has stabilized and it causes significant agitation (10) Anemia: Chronic and thought to be from thalassemia in the past, however is considerably lower than previous baseline around 9. Hemoglobin did go down to 7.6 and today slightly increased to 8.2 No evidence of bleeding -No need for transfusion at this point, but will give IV iron based on the low transferrin saturation of 8% on iron studies-we will give another dose today Folate also borderline low at 5.4-started folic acid 1 mg p.o. once daily (11) Cognitive impairment: With secondary delirium in the setting of what sounds like moderate-severe cognitive impairment Family reports a long history of suspected mental health issues with agitation throughout her whole life that was never treated as the patient was distrustful of the medical community and did not seek care -Continue IM Haldol as needed for delirium, however need to convert to an oral antipsychotic that she can take after discharge at the [facility] She was still quite agitated despite taking 0.5 mg of risperidone this morning, still required IM Haldol -Have since increased Risperdal to 1 mg p.o. twice daily and with less agitation -Supportive care -Continue sertraline which is presumably for depression (12) LBBB (left bundle branch block): Chronic (13) PSVT (paroxysmal supraventricular tachycardia): With episodes of 30 to 60 minutes several times throughout the day on 11/29 of SVT in the 140s for the rate -Spontaneously converted each time Now remains out of SVT since starting amiodarone gtt on 11/29 Consulted cardiology-appreciate consult -continue diltiazem 240 mg p.o. daily -Discontinue amiodarone drip and continue p.o. amiodarone 400 mg p.o. twice daily and then will titrate down after loading dose likely in 1 week-on 12/08 -Stable for transfer off telemetry (14) DVT prophylaxis: Continue Lovenox 40 mg SQ every 24 hours Disposition-transfer off [employer] to medical floor -We will try to wean off 1: 1 sitter so that she can get to the [facility] Her son Spencer is her healthcare power of international marketing intern. Discussed goals of care Several occasions this admission given her progressing dementia, inability to care for herself at home, possibility of lack of quality care at home with the current son she is living with. We are all very concerned with her returning home to her current situation. PT/OT consults placed and son is hopeful that she will be placed in a [facility]-awaiting for patient to get off of a 1: 1 sitter for at least 24 hours before she can have placement Palliative care consultation greatly appreciated Son would like to make her a DO NOT RESUSCITATE and now has decided that he does not want her to be intubated either-changed CODE STATUS to DNR/DNI Subjective Patient received IM Haldol around 3:30 in the morning for increased agitation. Otherwise, she has been resting today and less agitated in the daytime. She is not eating much. She has not moved her bowels. The patient is confused and talking to me about "guys that are going to different places." She denies chest pain or shortness of breath, denies abdominal pain. She has not been out of bed. I discussed her care with her son on the phone. He reports that she still seems very confused and wonders how long this will go on. He also points out that she was not trying to pull her oxygen off at all today with nasal cannula and he was pleased with that. Review of Systems Review of Systems: All systems reviewed & are unremarkable except as noted in HPI & below Physical Exam Constitutional: + thin; not in distress Eyes: PERRL, conjunctivae normal, anicteric sclerae + anicteric sclerae and EOM intact bilaterally ENMT: Mouth: + dry oral mucous membranes and + edentulous Neck: trachea midline, no thyromegaly Respiratory: normal respiratory effort (With nasal cannula in place) Auscultation: + diminished lung sounds (Throughout) Cardiovascular: Rate/Rhythm: regular rate and regular rhythm Heart Sounds: + murmur (3/6 systolic at the LLSB) Extremities: no edema Gastrointestinal (Abdomen): normal bowel sounds, soft, nontender, no hepatosplenomegaly Musculoskeletal: Extremities: extremities normal to inspection; no cyanosis and no clubbing Skin: no rashes, warm and dry Neurologic: moves all extremities; no focal motor deficits Psychiatric: Orientation: alert and cooperative; + not oriented to place and + not oriented to time Results & Data Vital Signs (Past 12 Hours) Vital Signs Temp Pulse Pulse Pulse Resp BP BP 12/02/18 11:52 36.8 C 69 17 141/76 H 12/02/18 08:00 66 12/02/18 07:43 36.4 C L 64 17 156/68 H 12/02/18 07:09 76 18 12/02/18 03:55 36.4 C L 63 20 166/77 H Pulse Ox 12/02/18 11:52 93 12/02/18 08:00 12/02/18 07:43 96 12/02/18 07:09 96 12/02/18 03:55 92 PG Care Time/CCT Total # of Minutes Spent Total Time Spent with Patient: Total time spent is greater than 50% in coordination of care (as documented) at patient's floor/unit and/or counseling patient: (1) UTI (urinary tract infection) Hematuria presence: without hematuria Urinary tract infection type: site unspecified Qualified Code(s): N39.0 - Urinary tract infection, site not specified (2) Sepsis Sepsis type: sepsis due to unspecified organism Qualified Code(s): A41.9 - Sepsis, unspecified organism (3) Hypotension Hypotension type: unspecified hypotension type Qualified Code(s): I95.9 - Hypotension, unspecified
[2018-12-02] MEDS: CEFEPIME 2,000 MG in SYRINGE 7.5 ML IV SCH (15:58)
[2018-12-02] MEDS ORDERED: IRON SUCROSE 100 MG in 0.9 % SODIUM CHLORIDE 100 ML IV SCH (21:00)
[2018-12-02] MEDS: ENOXAPARIN INJ 40 MG/0.4 ML SYR SQ SCH (21:33)
[2018-12-03] MEDS: ALBUT/IPRATROP 3MG/0.5MG NEB 3 ML VIAL NEB SCH ×2 (03:37→07:16)
[2018-12-03] MEDS: D5W AND 1/2NSS 1,000 ML IV SCH (07:46)
[2018-12-03] MEDS: AMIODARONE 200 MG TAB PO SCH ×2 (07:51→20:58)
[2018-12-03] MEDS: SERTRALINE HCL 50 MG TABLET PO SCH (07:51)
[2018-12-03] MEDS: risperiDONE 1 MG TABLET PO SCH ×2 (07:51→20:56)
[2018-12-03] MEDS: dilTIAZem HCL 240 MG CAPCR PO SCH (07:51)
[2018-12-03] MEDS ORDERED: risperiDONE 0.5 MG TABLET PO STA (09:18)
[2018-12-03] MEDS: FOLIC ACID 1 MG TAB PO SCH (09:24)
[2018-12-03] MEDS ORDERED: ALBUT/IPRATROP 3MG/0.5MG NEB 3 ML VIAL NEB PRN (10:42)
--- NOTE | 2018-12-03 13:35 | Hospitalist Progress Note ---
Date of Service December 03, 2018 Assessment & Plan (1) Confusion: This patient is an 87yo C female with history of dementia, paroxysmal SVT, bladder prolapse, LBBB, HTN, and depression who presented with sepsis secondary to UTI, confusion/agitation, and possible aspiration pneumonitis versus pne umonia Acute metabolic encephalopathy-somewhat improved but continues as per family members more than her baseline along with agitation which is fairly chronic for her (2) Sepsis: With encephalopathy, elevated lactate, elevated procalcitonin level, UTI and pneumonia evident on urinalysis and chest x-ray/CT, with tachycardia, hypotension, and tachypnea along with hypoxia. Also likely had a UTI although Ur cx with mixed organisms Leukocytosis is now resolved, remains afebrile. Blood pressures are normal now Blood cultures remain with no growth to date, urine culture with mixed organisms Procalcitonin decreased almost back to 0 -Has now completed a 7 day course of cefepime-will dc -Have since discontinued vancomycin that was given initially as MRSA swab is negative -Will continue maintenance fluids at D5 half-normal saline at 70 mL's per hour given previous hypoglycemia and minimal po intake -No further labs as this causes further agitation (3) Pneumonitis: With bibasilar infiltrates seen on CT of the chest and profound hypoxia upon admission. She may have a chemical aspiration pneumonitis versus aspiration pneumonia as per my discussion with pulmonology Hypoxia remains but is improving and she continues to pull oxygen off her face due to dementia with agitation She is able to maintain a pulse ox in the low 90s even with oxygen mask hanging near her anterior neck as she will not keep it on her face Her son reports that she was a heavy smoker for over 50 years and likely has a COPD component as well -Completed cefepime x 7 day course -Continue to monitor and follow chest imaging until resolved -Wean oxygen off as able to-currently on 2LNC and requiring sedation to keep O2 on her face -Continue albuterol nebulizers scheduled every 4 hours -No need for steroids at this point as there is no wheezing (4) Acute respiratory failure with hypoxia: As above CXR suggestive of pulmonary edema, chest CT with bibasilar pneumonia as above -Continue supplemental O2 as needed to maintain saturations > 90% (5) UTI (urinary tract infection): With abnormal UA and sepsis as above Urine culture now with mixed organisms -completed cefepime empirically x 7 days (6) Bladder prolapse: With severe bladder prolapse on examination, is at high risk for recurrent UTIs With urinary retention of 700 mL's-Shafer catheter was now placed on the morning of 11/29-would likely maintain Shafer catheter upon discharge (7) Hypotension: Now improved with volume resuscitation and treatment of sepsis -Have since restarted home diltiazem especially in the setting of paroxysmal SVT (8) Hypertension: With hypotension upon admission requiring withholding her diltiazem which is now restarted as above (9) ARF (acute renal failure): Baseline creatinine at 1.0, then went up to 1.5 and likely secondary to ATN from sepsis Creatinine then improved to 0.76 with volume resuscitation -Renally dose medications -Avoid NSAIDs and other nephrotoxins -Will not check further labs as she has stabilized and it causes significant agitation (10) Anemia: Chronic and thought to be from thalassemia in the past, however is considerably lower than previous baseline around 9. Hemoglobin did go down to 7.6 and then slightly increased to 8.2 No evidence of bleeding -No need for transfusion at this point, but will give IV iron based on the low transferrin saturation of 8% on iron studies-we will give another dose today Folate also borderline low at 5.4-started folic acid 1 mg p.o. once daily (11) Cognitive impairment: With secondary delirium in the setting of what sounds like moderate-severe cognitive impairment Family reports a long history of suspected mental health issues with agitation throughout her whole life that was never treated as the patient was distrustful of the medical community and did not seek care -Continue IM Haldol as needed for delirium, however need to convert to an oral antipsychotic that she can take after discharge at the skilled nursing She was still quite agitated despite taking 1 mg of risperidone bid; still required IM Haldol overnight -will increase Risperdal to 1 mg p.o. qAM and 1.5mg po qhs -Supportive care -Continue sertraline which is presumably for depression (12) LBBB (left bundle branch block): Chronic (13) PSVT (paroxysmal supraventricular tachycardia): With episodes of 30 to 60 minutes several times throughout the day on 11/29 of SVT in the 140s for the rate -Spontaneously converted each time Now remains out of SVT since starting amiodarone gtt on 11/29 Consulted cardiology-appreciate consult -continue diltiazem 240 mg p.o. daily -Discontinue amiodarone drip and continue p.o. amiodarone 400 mg p.o. twice daily and then will titrate down after loading dose likely in 1 week-on 12/08 (14) DVT prophylaxis: Dc Lovenox to minimize discomfort Disposition-remain hospitalized -We will try to wean off 1: 1 sitter so that she can get to the skilled nursing Her son Spencer is her healthcare power of regulatory attorney. Discussed goals of care Several occasions this admission given her progressing dementia, inability to care for herself at home, possibility of lack of quality care at home with the current son she is living with. We are all very concerned with her returning home to her current situation. PT/OT consults placed and son is hopeful that she will be placed in a skilled nursing-awaiting for patient to get off of a 1: 1 sitter for at least 24 hours before she can have placement Palliative care consultation greatly appreciated Son would like to make her a DO NOT RESUSCITATE and now has decided that he does not want her to be intubated either-changed CODE STATUS to DNR/DNI Subjective Pt still required IM Haldol overnight for severe agitation. Now resting comfortably and does wake up to answer some questions. Denies SOB, CP, abd pain. Continues to take her oxygen mask off. Is now off the 1:1 sitter Review of Systems Review of Systems: Unobtainable due to cognitive status Physical Exam Constitutional: + thin; not in distress Eyes: PERRL, conjunctivae normal, anicteric sclerae + anicteric sclerae and EOM intact bilaterally ENMT: external ear and nose normal, oropharynx normal Mouth: + edentulous Neck: trachea midline, no thyromegaly Respiratory: normal respiratory effort (With nasal cannula in place) Auscultation: + diminished lung sounds (Throughout) Cardiovascular: Rate/Rhythm: regular rate and regular rhythm Heart Sounds: + murmur (3/6 systolic at the LLSB) Extremities: no edema Gastrointestinal (Abdomen): normal bowel sounds, soft, nontender, no hepatosplenomegaly Musculoskeletal: Extremities: extremities normal to inspection; no cyanosis and no clubbing Skin: no rashes, warm and dry Neurologic: moves all extremities; no focal motor deficits Psychiatric: Orientation: alert and cooperative; + not oriented to place and + not oriented to time Results & Data Vital Signs (Past 12 Hours) Vital Signs Pulse Resp BP Pulse Ox 12/03/18 07:41 68 20 145/78 H 93 12/03/18 03:38 66 18 90 PG Care Time/CCT Total # of Minutes Spent Total Time Spent with Patient: Total time spent is greater than 50% in coordination of care (as documented) at patient's floor/unit and/or counseling patient: (1) UTI (urinary tract infection) Hematuria presence: without hematuria Urinary tract infection type: site unspecified Qualified Code(s): N39.0 - Urinary tract infection, site not specified (2) Sepsis Sepsis type: sepsis due to unspecified organism Qualified Code(s): A41.9 - Sepsis, unspecified organism (3) Hypotension Hypotension type: unspecified hypotension type Qualified Code(s): I95.9 - Hypotension, unspecified
[2018-12-03] MEDS: CEFEPIME 2,000 MG in SYRINGE 7.5 ML IV SCH (14:25)
[2018-12-03] MEDS ORDERED: risperiDONE 1 MG TABLET PO SCH (21:00)
[2018-12-03] MEDS ORDERED: PNEUMOCOCCAL POLYSACCHARIDES 25 MCG/0.5 ML VIAL/SYR IM ONE (21:00)
[2018-12-03] MEDS ORDERED: PNEUMOCOCCAL ADMINISTRATION CHARGE ONE (21:00)
[2018-12-04] MEDS: FOLIC ACID 1 MG TAB PO SCH (08:01)
[2018-12-04] MEDS: AMIODARONE 200 MG TAB PO SCH ×2 (08:01→21:36)
[2018-12-04] MEDS: SERTRALINE HCL 50 MG TABLET PO SCH (08:01)
[2018-12-04] MEDS: dilTIAZem HCL 240 MG CAPCR PO SCH (08:02)
[2018-12-04] MEDS: risperiDONE 1 MG TABLET PO SCH ×2 (08:03→21:36)
[2018-12-04 08:47] LABS: Hematocrit (blood only) 26.1 % (37-47); Hemoglobin 8.7 g/dL (12.0-16.0); Mean Corpuscular Hgb Conc 33.3 g/dL (32-36); Mean Corpuscular Volume 61.3 fL (80-100); Mean Platelet Volume 10.3 fL (7.4-10.4); Platelet Count 236 K/uL (130-400); RDW Standard Deviation 34.8 fL (36.4-46.3); Red Blood Count 4.26 M/uL (4.2-5.4)
[2018-12-04 09:07] LABS: BUN Creatinine Ratio 33.7 (10-20); Calcium 9.1 mg/dl (8.5-10.1); Creatinine Clr Calc Pharmacy 46.9 ml/min; Est GFR (African American) 86.7; Est GFR (Non-African American) 74.8; Potassium 3.1 mmol/L (3.5-5.1)
[2018-12-04] MEDS ORDERED: POTASSIUM CHLORIDE 20 MEQ TABCR PO ONE ×2 (10:00→12:00)
--- NOTE | 2018-12-04 10:16 | XRay Report ---
XR chest 1V portable HISTORY: 88 years-old Female leukocytosis, poss aspiration acute leukocytosis with shortness of alberto th COMPARISON: Chest radiograph 11/28/2018, chest CT 11/28/2018 TECHNIQUE: Portable AP view of the chest FINDINGS: Cardiomediastinal and hilar silhouettes are within normal limits. The patient is side bent to the rig ht. Calcification of the thoracic aortic arch. Emphysema with chronic fibrotic changes. No pneumothor ax overt pulmonary edema. Mild right hemidiaphragmatic elevation with subsegmental right greater than left bibasilar opacities, improved from comparison study. No large pleural effusion. Degenerative ch anges of the shoulders and spine. IMPRESSION: 1. Subsegmental right greater than left bibasilar opacities have improved from comparison study. 2. Cardiomegaly without overt pulmonary edema. 3. Emphysema with chronic fibrosis. The above report was generated using voice recognition software. It may contain grammatical, syntax o r spelling errors. Electronically signed by: Curtis Perez M.D. 12/04/2018 10:15 AM
--- NOTE | 2018-12-04 13:28 | Hospitalist Progress Note ---
Date of Service December 04, 2018 Assessment & Plan (1) Confusion: This patient is an 87yo C female with history of dementia, paroxysmal SVT, bladder prolapse, LBBB, HTN, and depression who presented with sepsis secondary to UTI, confusion/agitation, and possible aspiration pneumonitis versus pne umonia Acute metabolic encephalopathy - appeared to have received a number of doses of Haldol yesterday, somnolent today. Has been quite agitated throughout this admission. (2) Sepsis: With encephalopathy, elevated lactate, elevated procalcitonin level, UTI and pneumonia evident on urinalysis and chest x-ray/CT, with tachycardia, hypotension, and tachypnea along with hypoxia. Also likely had a UTI although Ur cx with mixed organisms Leukocytosis is now resolved, remains afebrile. Blood pressures are normal now Blood cultures remain with no growth to date, urine culture with mixed organisms Procalcitonin decreased almost back to 0 -Has now completed a 7 day course of cefepime-will dc -Have since discontinued vancomycin that was given initially as MRSA swab is negative (3) Pneumonitis: With bibasilar infiltrates seen on CT of the chest and profound hypoxia upon admission. She may have a chemical aspiration pneumonitis versus aspiration pneumonia as per my discussion with pulmonology Saturating high 90s on 2L NC Her son reports that she was a heavy smoker for over 50 years and likely has a C OPD component as well -Completed cefepime x 7 day course -Continue to monitor - CXR today showing improvement in opacities -Wean oxygen off as able to-currently on 2LNC -Continue albuterol nebulizers scheduled every 4 hours -No need for steroids at this point as there is no wheezing (4) Acute respiratory failure with hypoxia: As above CXR suggestive of pulmonary edema, chest CT with bibasilar pneumonia as above -Continue supplemental O2 as needed to maintain saturations > 90% (5) UTI (urinary tract infection): With abnormal UA and sepsis as above Urine culture now with mixed organisms -completed cefepime empirically x 7 days - repeat UA for leukocytosis (6) Bladder prolapse: With severe bladder prolapse on examination, is at high risk for recurrent UTIs With urinary retention of 700 mL's-Shafer catheter was placed on the morning of 11/29-would likely maintain Shafer catheter upon discharge (7) Hypotension: Now improved with volume resuscitation and treatment of sepsis -Have since restarted home diltiazem especially in the setting of paroxysmal SVT (8) Hypertension: With hypotension upon admission requiring withholding her diltiazem which is now restarted as above (9) ARF (acute renal failure): Baseline creatinine at 1.0, then went up to 1.5 and likely secondary to ATN from sepsis Creatinine then improved with volume resuscitation -Renally dose medications -Avoid NSAIDs and other nephrotoxins (10) Anemia: Chronic and thought to be from thalassemia in the past, however is considerably lower than previous baseline around 9. Hemoglobin did go down to 7.6 and then slightly increased to 8.2 No evidence of bleeding -given IV iron based on the low transferrin saturation of 8% on iron studies - Folate also borderline low at 5.4-continue folic acid 1 mg p.o. once daily (11) Cognitive impairment: With secondary delirium in the setting of what sounds like moderate-severe cognitive impairment Family reports a long history of suspected mental health issues with agitation throughout her whole life that was never treated as the patient was distrustful of the medical community and did not seek care -Continue IM Haldol as needed for delirium, however need to convert to an oral antipsychotic that she can take after discharge at the detention - Palliative recommends haldol po slurry. -continue increased Risperdal to 1 mg p.o. qAM and 1.5mg po qhs -Supportive care -Continue sertraline which is presumably for depression (12) LBBB (left bundle branch block): Chronic (13) PSVT (paroxysmal supraventricular tachycardia): With episodes of 30 to 60 minutes several times throughout the day on 11/29 of SVT in the 140s for the rate -Spontaneously converted each time Now remains out of SVT since starting amiodarone gtt on 11/29 Consulted cardiology-appreciate consult -continue diltiazem 240 mg p.o. daily -Discontinue amiodarone drip and continue p.o. amiodarone 400 mg p.o. twice daily and then will titrate down after loading dose likely in 1 week-on 12/08 (14) DVT prophylaxis: Dc'd Lovenox to minimize discomfort Disposition- [facility] - hopefully tomorrow -We will try to wean off 1: 1 sitter so that she can get to the detention - has not needed 1:1 overnight Subjective Ms. Quezada is somnolent at the time of my exam. Her son is bedside. I did spend time answering his questions at bedside. Physical Exam Physical Exam: General: no distress Eyes: normal inspection, PERLL Respiratory: chest non tender, clear to auscultation, normal breath sounds, no respiratory distress, no accessory muscle use Cardiac: regular rate and rhythm, no rub or gallop, no murmur, no edema, no jvd GI/: active bowel sounds, no abd pain or tenderness, soft, non distended Extremities: normal range of motion, normal strength, non tender Neuro/Psych: asleep, does not awaken to verbal stimulus Skin: normal color, dry Results & Data Vital Signs (Past 12 Hours) Vital Signs Temp Pulse Resp BP Pulse Ox 12/04/18 07:21 36.1 C L 93 H 24 131/65 97 12/04/18 05:12 91 PG Care Time/CCT Total # of Minutes Spent Total Time Spent with Patient: Total time spent is greater than 50% in coordination of care (as documented) at patient's floor/unit and/or counseling patient: (1) UTI (urinary tract infection) Hematuria presence: without hematuria Urinary tract infection type: site unspecified Qualified Code(s): N39.0 - Urinary tract infection, site not specified (2) Sepsis Sepsis type: sepsis due to unspecified organism Qualified Code(s): A41.9 - Sepsis, unspecified organism (3) Hypotension Hypotension type: unspecified hypotension type Qualified Code(s): I95.9 - Hypotension, unspecified
[2018-12-05] MEDS: dilTIAZem HCL 240 MG CAPCR PO SCH (07:51)
[2018-12-05] MEDS: FOLIC ACID 1 MG TAB PO SCH (07:52)
[2018-12-05] MEDS: AMIODARONE 200 MG TAB PO SCH ×2 (07:52→20:53)
[2018-12-05] MEDS: risperiDONE 1 MG TABLET PO SCH ×2 (07:52→20:53)
[2018-12-05] MEDS: SERTRALINE HCL 50 MG TABLET PO SCH (07:52)
[2018-12-05 08:23] LABS: Hematocrit (blood only) 27.2 % (37-47); Hemoglobin 9.1 g/dL (12.0-16.0); Mean Corpuscular Hgb Conc 33.5 g/dL (32-36); Mean Corpuscular Volume 61.8 fL (80-100); Platelet Count 158 K/uL (130-400); RDW Coefficient of Variation 16.1 % (11.5-14.5); RDW Standard Deviation 35.3 fL (36.4-46.3); White Blood Count 9.25 K/uL (4.8-10.8)
[2018-12-05 08:57] LABS: BUN Creatinine Ratio 48.4 (10-20); Calcium 9.2 mg/dl (8.5-10.1); Creatinine Clr Calc Pharmacy 40.7 ml/min; Potassium 3.7 mmol/L (3.5-5.1)
--- NOTE | 2018-12-05 10:32 | Hospitalist Progress Note ---
Date of Service December 05, 2018 Assessment & Plan (1) Confusion: This patient is an 87yo C female with history of dementia, paroxysmal SVT, bladder prolapse, LBBB, HTN, and depression who presented with sepsis secondary to UTI, confusion/agitation, and possible aspiration pneumonitis versus pne umonia Acute metabolic encephalopathy - no Haldol administered over the last couple of days. Has been quite agitated throughout this admission but able to stay of 1:1 for >24 hours (2) Sepsis: With encephalopathy, elevated lactate, elevated procalcitonin level, UTI and pneumonia evident on urinalysis and chest x-ray/CT, with tachycardia, hypotension, and tachypnea along with hypoxia. Also likely had a UTI although Ur cx with mixed organisms Leukocytosis is now resolved, remains afebrile. Blood pressures are normal now Blood cultures remain with no growth to date, urine culture with mixed organisms Procalcitonin decreased almost back to 0 -Has now completed a 7 day course of cefepime-will dc -Have since discontinued vancomycin that was given initially as MRSA swab is negative (3) Pneumonitis: With bibasilar infiltrates seen on CT of the chest and profound hypoxia upon admission. She may have a chemical aspiration pneumonitis versus aspiration pneumonia as per my discussion with pulmonology Saturating high 90s on 2L NC Her son reports that she was a heavy smoker for over 50 years and likely has a COPD component as well -Completed cefepime x 7 day course -Continue to monitor - CXR 12/04 showing improvement in opacities -Wean oxygen off as able to-currently on 2LNC -Continue albuterol nebulizers scheduled every 4 hours -No need for steroids at this point as there is no wheezing (4) Acute respiratory failure with hypoxia: As above CXR suggestive of pulmonary edema, chest CT with bibasilar pneumonia as above -Continue supplemental O2 as needed to maintain saturations > 90% (5) UTI (urinary tract infection): With abnormal UA and sepsis as above Urine culture now with mixed organisms -completed cefepime empirically x 7 days (6) Bladder prolapse: With severe bladder prolapse on examination, is at high risk for recurrent UTIs With urinary retention of 700 mL's-Shafer catheter was placed on the morning of 11/29-would maintain Shafer catheter upon discharge (7) Hypotension: Now improved with volume resuscitation and treatment of sepsis -Have since restarted home diltiazem especially in the setting of paroxysmal SVT (8) Hypertension: With hypotension upon admission requiring withholding her diltiazem which is now restarted as above (9) ARF (acute renal failure): Baseline creatinine at 1.0, then went up to 1.5 and likely secondary to ATN from sepsis Creatinine then improved with volume resuscitation -Renally dose medications -Avoid NSAIDs and other nephrotoxins - BUN increased to 40 today - continue to monitor. (10) Anemia: Chronic and thought to be from thalassemia in the past, however is considerably lower than previous baseline around 9. -given IV iron based on the low transferrin saturation of 8% on iron studies - Folate also borderline low at 5.4-continue folic acid 1 mg p.o. once daily - BUN increasing - GI bleed? Patient would be poor candidate for intervention. Will start protonix (11) Cognitive impairment: With secondary delirium in the setting of what sounds like moderate-severe cognitive impairment Family reports a long history of suspected mental health issues with agitation throughout her whole life that was never treated as the patient was distrustful of the medical community and did not seek care -Continue IM Haldol as needed for delirium, however need to convert to an oral antipsychotic that she can take after discharge at the longterm - Palliative recommends sl Zyprexa. -continue increased Risperdal to 1 mg p.o. qAM and 1.5mg po qhs -Supportive care -Continue sertraline which is presumably for depression (12) LBBB (left bundle branch block): Chronic (13) PSVT (paroxysmal supraventricular tachycardia): With episodes of 30 to 60 minutes several times throughout the day on 11/29 of SVT in the 140s for the rate -Spontaneously converted each time Now remains out of SVT since starting amiodarone gtt on 11/29 Consulted cardiology-appreciate consult -continue diltiazem 240 mg p.o. daily -Discontinue amiodarone drip and continue p.o. amiodarone 400 mg p.o. twice daily and then will titrate down after loading dose likely in 1 week-on 12/08 (14) DVT prophylaxis: Dc'd Lovenox to minimize discomfort Disposition- SNF - has been off 1:1 sitter > 24 hours Subjective Ms. Quezada is more awake today. She responds that she doesn't feel well but otherwise does not verbalize. She continue to pull her oxygen off her face frequently Review of Systems Review of Systems: All systems reviewed & are unremarkable except as noted in HPI & below Physical Exam Physical Exam: General: no distress Eyes: normal inspection, PERLL Respiratory: chest non tender, clear to auscultation, normal breath sounds, no respiratory distress, no accessory muscle use Cardiac: regular rate and rhythm, no rub or gallop, 2/6 murmur, no edema, no jvd GI/: active bowel sounds, no abd pain or tenderness, soft, non distended, pink urine in Shafer Extremities: normal range of motion, normal strength, non tender Neuro/Psych: lethargic, disoriented Skin: normal color, dry Results & Data Vital Signs (Past 12 Hours) Vital Signs Temp Pulse Resp BP Pulse Ox 12/05/18 07:14 36.7 C 83 22 121/70 95 12/04/18 22:55 36.4 C L 80 22 113/76 98 PG Care Time/CCT Total # of Minutes Spent Total Time Spent with Patient: Total time spent is greater than 50% in coordination of care (as documented) at patient's floor/unit and/or counseling patient: (1) Sepsis Sepsis type: sepsis due to unspecified organism Qualified Code(s): A41.9 - Sepsis, unspecified organism (2) UTI (urinary tract infection) Hematuria presence: without hematuria Urinary tract infection type: site unspecified Qualified Code(s): N39.0 - Urinary tract infection, site not specified (3) Hypotension Hypotension type: unspecified hypotension type Qualified Code(s): I95.9 - Hypotension, unspecified
[2018-12-05] MEDS: PANTOprazole 40 MG TAB PO SCH (11:39)
[2018-12-06 07:06] VITALS: TEMP 97.5; O2SAT 92
[2018-12-06] MEDS: FOLIC ACID 1 MG TAB PO SCH (08:14)
[2018-12-06] MEDS: risperiDONE 1 MG TABLET PO SCH ×2 (08:14→20:47)
[2018-12-06] MEDS: dilTIAZem HCL 240 MG CAPCR PO SCH (08:14)
[2018-12-06] MEDS: SERTRALINE HCL 50 MG TABLET PO SCH (08:14)
[2018-12-06] MEDS: AMIODARONE 200 MG TAB PO SCH ×2 (08:14→20:46)
[2018-12-06] MEDS: PANTOprazole 40 MG TAB PO SCH (08:15)
--- NOTE | 2018-12-06 14:32 | Hospitalist Progress Note ---
Date of Service December 06, 2018 Assessment & Plan (1) Confusion: Patient has a history of dementia, see Palliative note from 11/29 - patient's baseline dementia was progressing at home to a point where she could not perform most of her own ADLs and had outbursts of aggression and behaviors. Her behavior here at the hospital may have a component of delirium to it but patient has been apparently failing to thrive for some time given her frail appearance and son's description of baseline. Speech therapy evaluated her 12/06 and felt that she was a high risk for aspirating. Patient also has not had much appetite and even at home had not been taking in much nutrition. Long discussion with the family as outlined in the subjective. They do not want to prolong any suffering. We will make patient comfort care and will allow pureed foods per speech recommendation (this was the recommendation if the patient were transitioned to comfort). Patient will be made comfort care. Palliative care to create POLST with the family. Previous to this decision the following care plan was being followed: This patient is an 87yo C female with history of dementia, paroxysmal SVT, bladder prolapse, LBBB, HTN, and depression who presented with sepsis secondary to UTI, confusion/agitation, and possible aspiration pneumonitis versus pneumonia Acute metabolic encephalopathy - no Haldol administered over the last couple of days. Has been quite agitated throughout this admission but able to stay of 1:1 for >24 hours (2) Sepsis: With encephalopathy, elevated lactate, elevated procalcitonin level, UTI and pneumonia evident on urinalysis and chest x-ray/CT, with tachycardia, hypotension, and tachypnea along with hypoxia. Also likely had a UTI although Ur cx with mixed organisms Leukocytosis is now resolved, remains afebrile. Blood pressures are normal now Blood cultures remain with no growth to date, urine culture with mixed organisms Procalcitonin decreased almost back to 0 -Has now completed a 7 day course of cefepime-will dc -Have since discontinued vancomycin that was given initially as MRSA swab is negative (3) Pneumonitis: With bibasilar infiltrates seen on CT of the chest and profound hypoxia upon admission. She may have a chemical aspiration pneumonitis versus aspiration pneumonia as per my discussion with pulmonology Saturating high 90s on 2L NC Her son reports that she was a heavy smoker for over 50 years and likely has a COPD component as well -Completed cefepime x 7 day course - CXR 12/04 showing improvement in opacities -currently on 2LNC -provided albuterol nebulizers scheduled every 4 hours (4) Acute respiratory failure with hypoxia: As above CXR suggestive of pulmonary edema, chest CT with bibasilar pneumonia as above - provided supplemental O2 as needed to maintain saturations > 90% (5) UTI (urinary tract infection): With abnormal UA and sepsis as above Urine culture now with mixed organisms -completed cefepime empirically x 7 days (6) Bladder prolapse: With severe bladder prolapse on examination, is at high risk for recurrent UTIs With urinary retention of 700 mL's-Shafer catheter was placed on the morning of 11/29-would maintain Shafer catheter upon discharge (7) Hypotension: Now improved with volume resuscitation and treatment of sepsis - restarted home diltiazem especially in the setting of paroxysmal SVT (8) Hypertension: With hypotension upon admission requiring withholding her diltiazem which is now restarted as above (9) ARF (acute renal failure): Baseline creatinine at 1.0, then went up to 1.5 and likely secondary to ATN from sepsis Creatinine then improved with volume resuscitation -Renally dose medications -Avoid NSAIDs and other nephrotoxins (10) Anemia: Chronic and thought to be from thalassemia in the past, however is considerably lower than previous baseline around 9. -given IV iron based on the low transferrin saturation of 8% on iron studies - Folate also borderline low at 5.4-continue folic acid 1 mg p.o. once daily - BUN increasing - GI bleed? Patient would be poor candidate for intervention. Initiated protonix (11) Cognitive impairment: With secondary delirium in the setting of what sounds like moderate-severe cognitive impairment Family reports a long history of suspected mental health issues with agitation throughout her whole life that was never treated as the patient was distrustful of the medical community and did not seek care -Continue IM Haldol as needed for delirium, however need to convert to an oral antipsychotic that she can take after [facility] the [facility] - Palliative recommends Zyprexa however patient has not really been requiring Haldol over the last few days -continue increased Risperdal to 1 mg p.o. qAM and 1.5mg po qhs -Supportive care -home sertraline which is presumably for depression (12) LBBB (left bundle branch block): Chronic (13) PSVT (paroxysmal supraventricular tachycardia): With episodes of 30 to 60 minutes several times throughout the day on 11/29 of SVT in the 140s for the rate -Spontaneously converted each time Now remains out of SVT since starting amiodarone gtt on 11/29 Consulted cardiology-appreciate consult -continue diltiazem 240 mg p.o. daily -Discontinued amiodarone drip and continued p.o. amiodarone 400 mg p.o. twice daily and then would titrate down after loading dose on 12/08 (14) DVT prophylaxis: Dc'd Lovenox to minimize discomfort Disposition- [facility] Subjective Long discussion concerning goals of care with Patient's four children and daughter in law. They are in agreement that patient should be made comfort care and are interesting in looking into hospice options. Patient has had very little intake and her speech evaluation today showed that she is unable to eat safely without risk of aspiration. Family was understanding and in agreement that alternative methods of nutrition such as feeding tubes would not be what their mother would want. I discussed the meeting with both Palliative care and case management who will both follow up with the family. Review of Systems Review of Systems: All systems reviewed & are unremarkable except as noted in HPI & below Physical Exam Physical Exam: General: no distress Eyes: normal inspection, PERLL Respiratory: chest non tender, clear to auscultation, normal breath sounds, no respiratory distress, no accessory muscle use Cardiac: regular rate and rhythm, no rub or gallop, no murmur, no edema, no jvd GI/: active bowel sounds, no abd pain or tenderness, soft, non distended Extremities: normal range of motion, normal strength, non tender Neuro/Psych: alert and oriented x 3, normal mood and affect Skin: normal color, dry Results & Data Vital Signs (Past 12 Hours) Vital Signs Temp Pulse Resp BP Pulse Ox 12/06/18 07:04 36.4 C L 75 20 130/66 92 PG Care Time/CCT Total # of Minutes Spent Total Time Spent with Patient: Total time spent is greater than 50% in coordination of care (as documented) at patient's floor/unit and/or counseling patient: (1) Sepsis Sepsis type: sepsis due to unspecified organism Qualified Code(s): A41.9 - Sepsis, unspecified organism (2) UTI (urinary tract infection) Hematuria presence: without hematuria Urinary tract infection type: site unspecified Qualified Code(s): N39.0 - Urinary tract infection, site not specified (3) Hypotension Hypotension type: unspecified hypotension type Qualified Code(s): I95.9 - Hypotension, unspecified
--- NOTE | 2018-12-06 15:03 | Palliative Care Progress Note ---
Date of Service December 06, 2018 Assessment & Plan (1) Goals of care, counseling/discussion: -Patient continues to be confused, but is less combative today. SHe continues to be agitated and angry at times, but has been off 1:1 for a few days. During my first visit, no family at bedside. -She continues to take her Risperdal. -She is not eating/drinking much. GUEST RELATIONS AGENT saw her today and stated she is not safe to eat unless it is for comfort feeding, as she is high risk for aspiration. -EDGARDO Lindsey held a family meeting today with patient's children-- Spencer (POA, Fan, Dary, Luba and Spencer's Alexa. The decision was made to transition to comfort measures only with a goal of hospice care. -I returned to the room and continued the conversation with patient's children. They confirmed that the goal is for comfort/hospice care. THey are okay with patient being moved to a SNF for hospice, but need to talk finances first. ed manager updated. -POLST form discussed and completed as follows: DNR, comfort measures only, abx with comfort as the goal, no artificial hydration/nutrition. -We discussed some end of life issues such as the patient not eating/drinking, and that artificial feeding is not beneficial for comfort at that point. Family understanding. (2) Pneumonitis: (3) Cognitive impairment: (4) UTI (urinary tract infection): (5) Sepsis: Subjective Patient is still confused but awake today. She denies pain but could give no other meaningful ROS. Family meeting later in the afternoon. See A&P. Review of Systems Review of Systems: Unobtainable due to cognitive status Physical Exam Constitutional: + ill appearing and + frail appearing Neck: normal visual inspection Respiratory: normal respiratory effort; no respiratory distress Auscultation: + diminished lung sounds Cardiovascular: RRR, no murmur, no edema Gastrointestinal (Abdomen): Inspection/Auscultation: abdomen normal to inspect ion and normal bowel sounds; abdomen not distended Percussion/Palpation: abdomen soft; abdomen nontender Neurologic: awake and + confused Psychiatric: Orientation: alert and oriented to person; + not oriented to place and + not oriented to time Affect: + irritable affect and + angry affect Results & Data Vital Signs (Past 12 Hours) Vital Signs Temp Pulse Resp BP Pulse Ox 12/06/18 07:04 36.4 C L 75 20 130/66 92 Time Spent Midlevel 40 minutes with >50% of the time spent at bedside with patient and family discussing GOC, Hospice, and POLST form. (1) UTI (urinary tract infection) Hematuria presence: without hematuria Urinary tract infection type: site unspecified Qualified Code(s): N39.0 - Urinary tract infection, site not specified (2) Sepsis Sepsis type: sepsis due to unspecified organism Qualified Code(s): A41.9 - Sepsis, unspecified organism
[2018-12-07] MEDS: AMIODARONE 200 MG TAB PO SCH ×2 (07:54→21:11)
[2018-12-07] MEDS: risperiDONE 1 MG TABLET PO SCH (07:55)
[2018-12-07] MEDS: dilTIAZem HCL 240 MG CAPCR PO SCH (07:55)
[2018-12-07] MEDS: SERTRALINE HCL 50 MG TABLET PO SCH (07:55)
[2018-12-07] MEDS: PANTOprazole 40 MG TAB PO SCH (07:55)
[2018-12-07] MEDS: FOLIC ACID 1 MG TAB PO SCH (08:18)
[2018-12-07 10:42] VITALS: PULSE 102
--- NOTE | 2018-12-07 16:07 | Palliative Care Progress Note ---
Date of Service December 07, 2018 Assessment & Plan (1) Goals of care, counseling/discussion: -Patient is comfort measures only. -Plan is for patient to discharge to SNF, skilled initially then transition to hospice. -Patient and family do not want her to return to the hospital. -Case management following and coordinating discharge. -POLST form discussed and completed as follows: DNR, comfort measures only, abx with comfort as the goal, no artificial hydration/nutrition. -Please contact palliative team with any further needs. (2) Pneumonitis: (3) Cognitive impairment: (4) UTI (urinary tract infection): (5) Sepsis: Subjective Patient is still confused but awake today. She is much more pleasant and smiling. She denies pain but could give no other meaningful ROS. Review of Systems Review of Systems: Denies pain, SOB, N/V. Physical Exam Constitutional: + ill appearing and + frail appearing Neck: normal visual inspection Respiratory: normal respiratory effort; no respiratory distress Auscultation: + diminished lung sounds Cardiovascular: RRR, no murmur, no edema Gastrointestinal (Abdomen): Inspection/Auscultation: abdomen normal to inspection and normal bowel sounds; abdomen not distended Percussion/Palpation: abdomen soft; abdomen nontender Neurologic: awake and + confused Psychiatric: Orientation: alert and oriented to person; + not oriented to place and + not oriented to time Results & Data Vital Signs (Past 12 Hours) Vital Signs Pulse BP 12/07/18 08:00 102 H 156/78 H PG Care Time/CCT Total # of Minutes Spent Total Time Spent with Patient: Total time spent is greater than 50% in coordination of care (as documented) at patient's floor/unit and/or counseling patient: Time Spent Midlevel 35 minutes with >50% of the time spent at bedside with patient as well as collaborating with IDT to coordinate care and discuss POC. (1) UTI (urinary tract infection) Hematuria presence: without hematuria Urinary tract infection type: site unspecified Qualified Code(s): N39.0 - Urinary tract infection, site not specified (2) Sepsis Sepsis type: sepsis due to unspecified organism Qualified Code(s): A41.9 - Sepsis, unspecified organism
--- NOTE | 2018-12-07 16:30 | Hospitalist Progress Note ---
Date of Service December 07, 2018 Assessment & Plan (1) Confusion: Patient has a history of dementia, see Palliative note from 11/29 - patient's baseline dementia was progressing at home to a point where she could not perform most of her own ADLs and had outbursts of aggression and behaviors. Her behavior here at the hospital may have a component of delirium to it but patient has been apparently failing to thrive for some time given her frail appearance and son's description of baseline. Speech therapy evaluated her 12/06 and felt that she was a high risk for aspirating. Patient also has not had much appetite and even at home had not been taking in much nutrition. Patient was made comfort care after discussion with family. Previous to this decision the following care plan was being followed: This patient is an 87yo C female with history of dementia, paroxysmal SVT, bladder prolapse, LBBB, HTN, and depression who presented with sepsis secondary to UTI, confusion/agitation, and possible aspiration pneumonitis versus pneumonia Acute metabolic encephalopathy - no Haldol administered over the last couple of days. Has been quite agitated throughout this admission but able to stay of 1:1 for >24 hours (2) Sepsis: With encephalopathy, elevated lactate, elevated procalcitonin level, UTI and pneumonia evident on urinalysis and chest x-ray/CT, with tachycardia, hypotension, and tachypnea along with hypoxia. Also likely had a UTI although Ur cx with mixed organisms Leukocytosis is now resolved, remains afebrile. Blood pressures are normal now Blood cultures remain with no growth to date, urine culture with mixed organisms Procalcitonin decreased almost back to 0 -Has now completed a 7 day course of cefepime-will dc -Have since discontinued vancomycin that was given initially as MRSA swab is negative (3) Pneumonitis: With bibasilar infiltrates seen on CT of the chest and profound hypoxia upon admission. She may have a chemical aspiration pneumonitis versus aspiration pneumonia as per my discussion with pulmonology Saturating high 90s on 2L NC Her son reports that she was a heavy smoker for over 50 years and likely has a COPD component as well -Completed cefepime x 7 day course - CXR 12/04 showing improvement in opacities -currently on 2LNC -provided albuterol nebulizers scheduled every 4 hours (4) Acute respiratory failure with hypoxia: As above CXR suggestive of pulmonary edema, chest CT with bibasilar pneumonia as above - provided supplemental O2 as needed to maintain saturations > 90% (5) UTI (urinary tract infection): With abnormal UA and sepsis as above Urine culture now with mixed organisms -completed cefepime empirically x 7 days (6) Bladder prolapse: With severe bladder prolapse on examination, is at high risk for recurrent UTIs With urinary retention of 700 mL's-Shafer catheter was placed on the morning of 11/29-would maintain Shafer catheter upon discharge (7) Hypotension: Now improved with volume resuscitation and treatment of sepsis - restarted home diltiazem especially in the setting of paroxysmal SVT (8) Hypertension: With hypotension upon admission requiring withholding her diltiazem which is now restarted as above (9) ARF (acute renal failure): Baseline creatinine at 1.0, then went up to 1.5 and likely secondary to ATN from sepsis Creatinine then improved with volume resuscitation -Renally dose medications -Avoid NSAIDs and other nephrotoxins (10) Anemia: Chronic and thought to be from thalassemia in the past, however is considerably lower than previous baseline around 9. -given IV iron based on the low transferrin saturation of 8% on iron studies - Folate also borderline low at 5.4-continue folic acid 1 mg p.o. once daily - BUN increasing - GI bleed? Patient would be poor candidate for intervention. Initiated protonix (11) Cognitive impairment: With secondary delirium in the setting of what sounds like moderate-severe cognitive impairment Family reports a long history of suspected mental health issues with agitation throughout her whole life that was never treated as the patient was distrustful of the medical community and did not seek care -Continue IM Haldol as needed for delirium, however need to convert to an oral antipsychotic that she can take after [facility] at the [facility] - Palliative recommends Zyprexa however patient has not really been requiring Haldol over the last few days -continue increased Risperdal to 1 mg p.o. qAM and 1.5mg po qhs -Supportive care -home sertraline which is presumably for depression (12) LBBB (left bundle branch block): Chronic (13) PSVT (paroxysmal supraventricular tachycardia): With episodes of 30 to 60 minutes several times throughout the day on 11/29 of SVT in the 140s for the rate -Spontaneously converted each time Now remains out of SVT since starting amiodarone gtt on 11/29 Consulted cardiology-appreciate consult -continue diltiazem 240 mg p.o. daily -Discontinued amiodarone drip and continued p.o. amiodarone 400 mg p.o. twice daily and then would titrate down after loading dose on 12/08 (14) DVT prophylaxis: Dc'd Lovenox to minimize discomfort Disposition- [place] Results & Data Vital Signs (Past 12 Hours) Vital Signs Pulse BP 12/07/18 08:00 102 H 156/78 H PG Care Time/CCT Total # of Minutes Spent Total Time Spent with Patient: Total time spent is greater than 50% in coordination of care (as documented) at patient's floor/unit and/or counseling patient: (1) Sepsis Sepsis type: sepsis due to unspecified organism Qualified Code(s): A41.9 - Sepsis, unspecified organism (2) UTI (urinary tract infection) Hematuria presence: without hematuria Urinary tract infection type: site unspecified Qualified Code(s): N39.0 - Urinary tract infection, site not specified (3) Hypotension Hypotension type: unspecified hypotension type Qualified Code(s): I95.9 - Hypotension, unspecified
[2018-12-07] MEDS ORDERED: RISPERIDONE ODT 1MG PO SCH (21:00)
[2018-12-07] MEDS ORDERED: risperiDONE ODT 0.5 MG SOLTAB PO SCH (21:00)
[2018-12-08] MEDS ORDERED: RISPERIDONE ODT 1MG PO SCH (09:00)
[2018-12-08] MEDS: dilTIAZem HCL 240 MG CAPCR PO SCH (09:31)
[2018-12-08] MEDS: FOLIC ACID 1 MG TAB PO SCH (09:31)
[2018-12-08] MEDS: AMIODARONE 200 MG TAB PO SCH (09:31)
[2018-12-08] MEDS: PANTOprazole 40 MG TAB PO SCH (09:31)
[2018-12-08] MEDS: SERTRALINE HCL 50 MG TABLET PO SCH (09:32)
[2018-12-08 10:39] VITALS: BP 118/66
--- NOTE | 2018-12-08 12:49 | Discharge Summary ---
Date of Service December 08, 2018 Admission HPI Per Admitting Provider Brandon Quezada is an 87yo C female with history of dementia, HTN, paroxysmal SVT, CAD, Thalassemia "Mediterranean blood" presenting with episode of unresponsiveness. Patient was seen at [facility] ER yesterday and found to have a UTI. Labs at that time with WBC=5, UA with +WBCs and LE. Patient was given an antibiotic and sent home. Family reports that she was doing well this AM, however, this evening her son found her slumped over in a chair, unresponsive therefore she was brought to the ER. On arrival to the ER she was afebrile, hypotensive at 85/35, RR of 25 saturating 90% on room air. She is agitated, combative and uncooperative with exam. She was administered 1500mL of NSS with minimal improvement in blood pressure. Patient became hypoxic to 83% and was placed on a NRB then escalated to BiPAP which she subsequently removed. Family reports that she has some mild dementia at baseline. They report that she often becomes combative and agitated. ER Course: Albuterol, Morphine, Cefepime, Zofran Principal Diagnosis Sepsis Discharge Exam Constitutional + ill appearing and + thin Respiratory normal respiratory effort, lungs clear to auscultation Cardiovascular Rate/Rhythm: regular rate and regular rhythm Heart Sounds: + murmur Gastrointestinal (Abdomen) Inspection/Auscultation: normal bowel sounds; abdomen not distended Percussion/Palpation: abdomen soft; abdomen nontender Musculoskeletal generalized weakness Skin + dry skin and + pallor Neurologic moves all extremities and awake Psychiatric Orientation: + not oriented to person, + not oriented to place and + not oriented to time Discharge Data Allergies Allergy/AdvReac Type Severity Reaction Status Date / Time aspirin Allergy Unknown UNK Verified 11/27/18 21:53 erythromycin base Allergy Unknown UNK Verified 11/27/18 21:53 loratadine Allergy Unknown UNK Verified 11/27/18 21:53 naproxen Allergy Unknown UNK Verified 11/27/18 21:53 Penicillins Allergy Unknown UNK Verified 11/27/18 21:53 Sulfa (Sulfonamide Allergy Unknown UNK Verified 11/27/18 21:54 Antibiotics) black pepper Allergy Verified 12/02/18 13:05 strawberry Allergy Verified 12/02/18 12:42 Consultations 11/27/18 22:33 ED Decision to Admit Stat 11/28/18 01:02 Consult Case Management - Discharge Planning Routine Consult Formulation Scientist Routine 11/29/18 09:22 Consult Cardiology Routine 11/29/18 10:09 Consult Palliative Care Routine Ordered Studies 11/27/18 21:29 CT head/brain wo con Urgent 11/28/18 00:04 CT abd pelvis wo con Urgent 11/28/18 01:18 CT chest wo con Urgent Hospital Course (1) Confusion: Patient has a history of dementia, see Palliative note from 11/29 - patient's baseline dementia was progressing at home to a point where she could not perform most of her own ADLs and had outbursts of aggression and behaviors. Her behavior here at the hospital may have a component of delirium to it but patient has been apparently failing to thrive for some time given her frail appearance and son's description of baseline. Speech therapy evaluated her 12/06 and felt that she was a high risk for aspirating. Patient also has not had much appetite and even at home had not been taking in much nutrition. Patient was made comfort care after discussion with family. Previous to this decision the following care plan was being followed: This patient is an 87yo C female with history of dementia, paroxysmal SVT, bladder prolapse, LBBB, HTN, and depression who presented with sepsis secondary to UTI, confusion/agitation, and possible aspiration pneumonitis versus pneumonia Acute metabolic encephalopathy - no Haldol administered over the last couple of days. Has been quite agitated throughout this admission but able to stay of 1:1 for >24 hours (2) Sepsis: With encephalopathy, elevated lactate, elevated procalcitonin level, UTI and pneumonia evident on urinalysis and chest x-ray/CT, with tachycardia, hypotension, and tachypnea along with hypoxia. Also likely had a UTI although Ur cx with mixed organisms Leukocytosis is now resolved, remains afebrile. Blood pressures are normal now Blood cultures remain with no growth to date, urine culture with mixed organisms Procalcitonin decreased almost back to 0 -Has now completed a 7 day course of cefepime -Have since discontinued vancomycin that was given initially as MRSA swab is negative (3) Pneumonitis: With bibasilar infiltrates seen on CT of the chest and profound hypoxia upon admission. She may have a chemical aspiration pneumonitis versus aspiration pneumonia as per my discussion with pulmonology Saturating high 90s on 2L NC Her son reports that she was a heavy smoker for over 50 years and likely has a COPD component as well -Completed cefepime x 7 day course - CXR 12/04 showing improvement in opacities -currently on 2LNC -provided albuterol nebulizers scheduled every 4 hours (4) Acute respiratory failure with hypoxia: As above CXR suggestive of pulmonary edema, chest CT with bibasilar pneumonia as above - provided supplemental O2 as needed to maintain saturations > 90% (5) UTI (urinary tract infection): With abnormal UA and sepsis as above Urine culture now with mixed organisms -completed cefepime empirically x 7 days (6) Bladder prolapse: With severe bladder prolapse on examination, is at high risk for recurrent UTIs With urinary retention of 700 mL's-Shafer catheter was placed on the morning of 11/29-would maintain Shafer catheter upon discharge (7) Hypotension: Now improved with volume resuscitation and treatment of sepsis - restarted home diltiazem especially in the setting of paroxysmal SVT (8) Hypertension: With hypotension upon admission requiring withholding her diltiazem which is now restarted as above (9) ARF (acute renal failure): Baseline creatinine at 1.0, then went up to 1.5 and likely secondary to ATN from sepsis Creatinine then improved with volume resuscitation -Renally dose medications -Avoid NSAIDs and other nephrotoxins (10) Anemia: Chronic and thought to be from thalassemia in the past, however is considerably lower than previous baseline around 9. -given IV iron based on the low transferrin saturation of 8% on iron studies - Folate also borderline low at 5.4-continue folic acid 1 mg p.o. once daily - BUN increasing - GI bleed? Patient would be poor candidate for intervention. Initiated protonix (11) Cognitive impairment: With secondary delirium in the setting of what sounds like moderate-severe cognitive impairment Family reports a long history of suspected mental health issues with agitation throughout her whole life that was never treated as the patient was distrustful of the medical community and did not seek care -Continue IM Haldol as needed for delirium, however need to convert to an oral antipsychotic that she can take after discharge at the half-way - Palliative recommends Zyprexa however patient has not really been requiring Haldol over the last few days -continue increased Risperdal to 1 mg p.o. qAM and 1.5mg po qhs -Supportive care -home sertraline which is presumably for depression (12) LBBB (left bundle branch block): Chronic (13) PSVT (paroxysmal supraventricular tachycardia): With episodes of 30 to 60 minutes several times throughout the day on 11/29 of SVT in the 140s for the rate -Spontaneously converted each time Now remains out of SVT since starting amiodarone gtt on 11/29 Consulted cardiology-appreciate consult -continue diltiazem 240 mg p.o. daily -Discontinued amiodarone drip and continued p.o. amiodarone 400 mg p.o. twice daily and then would titrate down after loading dose on 12/08 (14) DVT prophylaxis: Dc'd Lovenox to minimize discomfort Disposition- [place] Total Time Total Time Spent Total Time Spent (In Minutes): greater than 30 minutes Discharge Plan Discharge Items Patient Disposition: Transfer Intermediate Fac Reason For Visit: HYPOTENSION, HYPOXIC RESPIRATORY FAILURE Discharge Diagnosis: Sepsis Discharge Goals: Decrease discomfort Activity: Resume your previous activity Non-emergency contact: Primary Care Provider Call non-emergency contact if: you have any medication questions Follow-up/Referrals: Saad Hill [Primary Care Provider] - Diet: Regular Diet Texture: Pureed (blended smooth) Liquid Consistency: [place] thick Addtl Provider Instructions: Ms. Quezada was comfort care while inpatient at the hospital. She has a POLST form completed. Prescriptions: New risperidone 0.5 mg Tablet,Disintegrating 0.5 mg PO HS Qty: 30 RF: 0 risperidone 1 mg Tablet,Disintegrating 1 mg PO QAM Qty: 30 RF: 0 risperidone 1 mg Tablet,Disintegrating 1 mg PO HS Qty: 30 RF: 0 amiodarone 200 mg Tablet 400 mg PO BID Qty: 30 RF: 0 Continued diltiazem HCl 240 mg capsule,extended release 24hr 240 mg PO DAILY RF: 0 nitroglycerin [Nitrostat] 0.4 mg Tablet, Sublingual 0.4 mg Sublingual .PRN PRN (Reason: Chest Pain) RF: 0 sertraline 50 mg tablet 50 mg PO DAILY RF: 0 Discontinued ibuprofen 200 mg Tablet 400 mg PO BID PRN (Reason: Pain) RF: 0 Stand-Alone Forms: [facility] Discharge Orders: Discharge Order (Routine); Ordered 12/08/18 Ordered By: Gina Rodarte Skilled Items Patient informed of condition?: Yes (confused, unable to comprehend ) DNR: Yes Discharge Level of Care: Skilled Communicable Disease: No Discharge Prognosis: Deteriorating Admission Data Admit Date/Time: 11/27/18 23:48 Attending Provider: Armand Benavides Admit Provider: Viji Evans Primary Care Provider: Saad Hill Other Providers: Viji Evans ; Jaime Duncan ; Alfredo Rodriguez ; Mercy Brooks ; Bárbara Lazo Service: Oncology Other Interventions: Discharge Summary Assessment (RN) Last Done: 12/08/18 10:37 Pending Studies at Discharge: No
== END 2018-12-08 14:38 | DRG 871 ==
LOC: ED 20:31 → SUATTDRO 23:48 → 1E 23:48 → 2N 11-28 18:53 → 2S 11-29 17:46 → 2W 12-02 16:12 → 4E 12-06 14:48